=== PATIENT | female | born 1940 | race Caucasian/White ===

== ENCOUNTER → 2017-09-27 10:23 | Outpatient (CLI) | payer MEDICARE, SELFPAY ==
[2017-09-27 10:57] LABS: Add Manual Diff / Slide Review NO; Basophils Percent Auto 0.6 % (0-2); Eosinophils Percent Auto 2.5 % (2-4); Hematocrit 39.4 % (36-46); Hemoglobin 13.1 g/dL (12.0-16.0); Lymphocytes Percent Auto 17.2 % (25-40); Mean Corpuscular HGB Conc 33.2 % (30-36); Mean Corpuscular Hemoglobin 31.8 PG (26-34); Mean Corpuscular Volume 95.8 fL (80-100); Monocytes Percent Auto 11.9 % (3-14); Neutrophils Absolute Auto 3500 /uL (3000-5900); Neutrophils Percent Auto 67.8 % (50-75); Platelet Count 189 X10^3/uL (150-400); Red Blood Cell Count 4.11 X10^6/uL (4.0-5.2); Red Cell Distribution Width 14.2 % (11.6-14.8); White Blood Cell Count 5.2 X10^3/uL (4.5-11.0)
[2017-09-27 11:22] LABS: BUN Creatinine Ratio 22.5 (6-22); Blood Urea Nitrogen 18 mg/dL (7-17); Calcium 9.2 mg/dL (8.4-10.2); Carbon Dioxide 31 mmol/L (22-32); Chloride 98 mmol/L (98-107); Cholesterol 153 mg/dL (140-199); Estimated Glomerular Filt Rate > 60.0 mL/min (>60); Glucose 95 mg/dL (80-110); HDL Cholesterol 51 mg/dL (40-60); HEMOLYSIS < 15 (0-50); LDL Cholesterol Calculated 78 mg/dL (<100); Sodium 139 mmol/L (137-145); Triglycerides 122 mg/dL (35-150)
== END ==
PROVIDERS: Family Provider Internal Medicine; PCP Internal Medicine; Visit Provider Internal Medicine Cardiovascular Disease
DX: I48.1 Persistent atrial fibrillation (principal); E78.5 Hyperlipidemia, unspecified
CPT/HCPCS: 36415; 80048; 80061; 85025

== ENCOUNTER → 2017-10-23 11:20 | Outpatient (CLI) | payer MEDICARE, SELFPAY ==
[2017-10-23 12:33] LABS: Add Manual Diff / Slide Review NO; Basophils Percent Auto 0.7 % (0-2); Eosinophils Percent Auto 2.1 % (2-4); Hemoglobin 12.9 g/dL (12.0-16.0); Lymphocytes Percent Auto 17.4 % (25-40); Mean Corpuscular HGB Conc 33.2 % (30-36); Mean Corpuscular Hemoglobin 31.8 PG (26-34); Mean Corpuscular Volume 95.9 fL (80-100); Monocytes Percent Auto 15.4 % (3-14); Neutrophils Absolute Auto 4300 /uL (3000-5900); Neutrophils Percent Auto 64.4 % (50-75); Platelet Count 213 X10^3/uL (150-400); Red Blood Cell Count 4.06 X10^6/uL (4.0-5.2); Red Cell Distribution Width 14.1 % (11.6-14.8); White Blood Cell Count 6.6 X10^3/uL (4.5-11.0)
[2017-10-23 12:59] LABS: Alanine Aminotransferase 23 IU/L (9-52); Albumin 4.1 g/dL (3.5-5.0); Albumin Globulin Ratio 1.5 (1.0-2.8); Alkaline Phosphatase 73 U/L (38-126); Aspartate Aminotransferase 22 IU/L (14-36); BUN Creatinine Ratio 17.8 (6-22); Bilirubin Total 0.7 mg/dL (0.2-1.3); Blood Urea Nitrogen 16 mg/dL (7-17); C-Reactive Protein Quant 0.8 mg/dL (<1.0); Calcium 9.1 mg/dL (8.4-10.2); Carbon Dioxide 33 mmol/L (22-32); Chloride 96 mmol/L (98-107); Creatine Kinase 42 U/L (30-135); Estimated Glomerular Filt Rate > 60.0 mL/min (>60); Globulin 2.8 g/dL (1.7-4.1); Glucose 96 mg/dL (80-110); HEMOLYSIS < 15 (0-50); Potassium 4.3 mmol/L (3.4-5.1); Sodium 137 mmol/L (137-145); Total Protein 6.9 g/dL (6.3-8.2)
[2017-10-23 13:05] LABS: Erythrocyte Sedimentation Rate 25 MM/HR (0-20)
== END ==
PROVIDERS: Family Provider Internal Medicine; PCP Internal Medicine; Visit Provider Internal Medicine
DX: I48.2 Chronic atrial fibrillation (principal); E78.2 Mixed hyperlipidemia; M25.50 Pain in unspecified joint
CPT/HCPCS: 36415; 80053; 82550; 85025; 85651; 86140

== ENCOUNTER 2018-01-17 13:07 | Outpatient (CLI) | payer MEDICARE, SELFPAY ==
[2018-01-17] VITALS (9 sets, daily range): BP systolic 105–156; BP diastolic 60–100; PULSE 83–100; RESP 18–19; TEMP 37; O2SAT 94–99
--- NOTE | 2018-01-17 13:15 | DI.RAD.S_ITS ---
PROCEDURE: PAIN L INTERLAMINAR/CAUDAL INJ INDICATIONS: Spinal stenosis FINDINGS: Fluoroscopic spot filming was performed to verify placement of spinal needles at the right L5-S1 translaminar level(s), as labeled on the films. Appropriate location(s) of the needle tip(s) was confirmed by injection of iodinated contrast. IMPRESSION: Successful right paramedian needle tip localization for dorsal epidural injection at L5-S1. Dictated by: Srinivasa Ortiz M.D. on 01/17/2018 at 16:15 Approved by: Srinivasa Ortiz M.D. on 01/17/2018 at 16:17
[2018-01-17] MEDS: MIDAZOLAM 5 MG/5 ML VIAL IV (14:01)
[2018-01-17] MEDS: BUPIVACAINE 0.25% (PF) VIAL 2 ML INJ (14:06)
[2018-01-17] MEDS: IOPAMIDOL 15 ML VIAL 3 ML INJ (14:06)
[2018-01-17] MEDS: DEXAMETHASONE 10 MG/ML VIAL 20 MG INJ (14:07)
[2018-01-17] MEDS: methylPREDNISolone acetate 80 MG/ML VIAL INJ (14:07)
--- NOTE | 2018-01-17 14:13 | P.PCN_ITS ---
Procedures Date/Time Date of procedure: 01/17/18 Time of procedure: 14:12 General Procedure description: PROVIDER: Herrera Mcintosh DO Operative Note PREOP DIAGNOSIS 1. HNP WITH RADICULAR FEATURES, 2. MULTILEVEL CENTRAL STENOSIS, POST OP DIAGNOSIS 1. HNP WITH RADICULAR FEATURES, 2. MULTILEVEL CENTRAL STENOSIS, PROCEDURES 1. FLUORSCOPICALLY GUIDED CONTRAST CONTROLLED INTERLAMINAR EPIDURAL STEROID INJECTION - L5/S1 PHYSICIAN: Herrera Mcintosh DO INDICATIONS Ana is referred by Dr. Valerio for treatment of Bilateral Foraminal Stenosis L >R LE symptoms. FINDINGS Multilevel Central Spinal Stenosis with Nerve Root Compression DESCRIPTION OF PROCEDURE Fluoroscopically guided, contrast-controlled L5/S1 translaminar epidural steroid injection. Following denial of allergy and review of potential side effects and complications, including, but not necessarily limited to, infection, allergic reaction, local tissue breakdown, temporary as well as permanent nerve injury, paralysis, stroke and possible , the patient indicated that the patient understood and agreed to proceed. An informed consent document was signed by the patient, witnessed by a nurse, and placed in the patient's chart. Additionally, other treatment options including modalities, medications, and physical therapy were reviewed with the patient. After review of previous anaesthesic history and IV conscious sedation the patient was deemed safe to proceed with todays procedure with IV conscious sedation as ASA class II designation. Safety time-out was performed to confirm patient ID, procedure to be performed and site of procedure. IV sedation was accomplished with a combination of 2mg of Versed administered by the RN after DO order, titrated to patient comfort during the course of the procedure while the patient remained responsive to all verbal commands. In the prone position, following sterile prep and drape of the lumbar region, the L5/S1 translaminar space was identified fluoroscopically. The skin was anesthetized via a 25-gauge, 1.5-inch needle with 1% lidocaine solution. At this point, a 22-gauge short bevel spinal needle was atraumatically introduced and advanced under fluoroscopic guidance into the region of the L5/S1 translaminar space. Depth was confirmed on lateral view. Radiological data, including multiple fluoroscopic views of the lumbar spine, reveal a spinal needle at the L5/S1 translaminar space. Lateral views then show placement of the needle in the epidural space. Subsequent views show contrast material flowing superiorly and inferiorly in the epidural space. No vascular or intrathecal uptake is observed. At this point, using loss of resistance technique with saline and air, the epidural space was entered. This was confirmed following negative aspiration with injection of approximately 1.5 cc of Isovue 200, showing excellent epidural flow without vascular or intrathecal uptake. At this point, 1 cc of 1 % lidocaine solution combined with 3 cc or 20 mg of dexamethasone and 80mg Depo medrol was injected without incident. The patent tolerated the procedure without signs of symptoms of complications prior to transfer to the recovery area for further monitoring. The patient was then transferred to the recovery area where they were observed for an appropriate period of time after the injection. The patient reported a VAS score of 6 prior to the procedure and a post-procedure VAS of 0. Total Fluoroscopy Time: 11.8 seconds Total Conscious Sedation Time: 24min POST OP INSTRUCTIONS The patient was provided a Pain Log to continue to record their response to the target-specific procedure prior to follow-up visit with their referring physician. Additionally, specific post-injection care instructions and a contact number to our office were provided if concerns arise regarding possible complications associated with the procedure are suspected. Herrera Mcintosh DO Complications: none
--- NOTE | 2018-01-17 14:15 | PC.NURSE ---
transporting pt in stable condition to recovery room
--- NOTE | 2018-01-17 14:35 | PC.NURSE ---
pt came back via wheelchair alert with Keila LARSEN post procedure, able to transfer from W/C to chair without problems. vss, pt able to eat cookies and drink coffee.
== END 2018-01-17 14:48 ==
PROVIDERS: PCP Internal Medicine; Visit Provider Physical Medicine & Rehabilitation
DX: M51.17 Intervertebral disc disorders with radiculopathy, lumbosacral region (principal); M48.061 Spinal stenosis, lumbar region without neurogenic claudication; Z98.1 Arthrodesis status
CPT/HCPCS: 62323; 99152; J1040; J1100; J2250

== ENCOUNTER → 2018-03-24 11:38 | Outpatient (CLI) | payer MEDICARE, SELFPAY ==
[2018-03-24 12:12] LABS: Add Manual Diff / Slide Review NO; Basophils Percent Auto 0.5 % (0-2); Eosinophils Percent Auto 1.7 % (2-4); Hematocrit 41.8 % (36-46); Hemoglobin 14.4 g/dL (12.0-16.0); Lymphocytes Percent Auto 13.7 % (25-40); Mean Corpuscular HGB Conc 34.5 % (30-36); Mean Corpuscular Hemoglobin 33.2 PG (26-34); Mean Corpuscular Volume 96.2 fL (80-100); Monocytes Percent Auto 13.8 % (3-14); Neutrophils Absolute Auto 4600 /uL (1500-7000); Neutrophils Percent Auto 70.3 % (50-75); Platelet Count 269 X10^3/uL (150-400); Red Blood Cell Count 4.34 X10^6/uL (4.0-5.2); Red Cell Distribution Width 12.7 % (11.6-14.8); White Blood Cell Count 6.5 X10^3/uL (4.5-11.0)
[2018-03-24 12:28] LABS: BUN Creatinine Ratio 21.1 (6-22); Blood Urea Nitrogen 19 mg/dL (7-17); Calcium 9.7 mg/dL (8.4-10.2); Carbon Dioxide 30 mmol/L (22-32); Chloride 98 mmol/L (98-107); Estimated Glomerular Filt Rate > 60.0 mL/min (>60); Glucose 109 mg/dL (80-110); HEMOLYSIS < 15 (0-50); Potassium 4.1 mmol/L (3.4-5.1); Sodium 142 mmol/L (137-145)
== END ==
PROVIDERS: PCP Internal Medicine; Visit Provider Internal Medicine Cardiovascular Disease
DX: I10 Essential (primary) hypertension (principal)
CPT/HCPCS: 36415; 80048; 85025

== ENCOUNTER 2018-05-30 13:05 | Outpatient (CLI) | payer MEDICARE, SELFPAY ==
[2018-05-30] VITALS (10 sets, daily range): BP systolic 96–139; BP diastolic 61–101; PULSE 63–90; RESP 16–18; TEMP 36.6; O2SAT 92–100
--- NOTE | 2018-05-30 13:06 | DI.RAD.S_ITS ---
PROCEDURE: PAIN L/SI FACET INJ/BLK 1STL INDICATIONS: SPINAL STENOSIS FINDINGS: Fluoroscopic spot filming was performed to verify placement of spinal needles at the bilateral L5-S1 region level(s), as labeled on the films. Appropriate location(s) of the needle tip(s) was confirmed by injection of iodinated contrast. IMPRESSION: Successful needle tip localization at the bilateral L5-S1 region for medial branch block procedures bilaterally. Dictated by: Srinivasa rOtiz M.D. on 05/30/2018 at 16:54 Approved by: Srinivasa Ortiz M.D. on 05/30/2018 at 17:21
[2018-05-30] MEDS: MIDAZOLAM 5 MG/5 ML VIAL IV (13:58)
[2018-05-30] MEDS: LIDOCAINE 1% 20 ML INJ 10 ML INJ (14:05)
[2018-05-30] MEDS: BUPIVACAINE 0.5% (PF) VIAL 2 ML INJ (14:05)
[2018-05-30] MEDS: IOPAMIDOL 15 ML VIAL 3 ML INJ (14:05)
[2018-05-30] MEDS: BETAMETHASONE 30 MG/5 ML MDV 12 MG INJ (14:05)
--- NOTE | 2018-05-30 14:10 | PC.NURSE ---
assisting pt off procedure table and transporting to post proc area in stable condition
--- NOTE | 2018-05-30 14:17 | P.PCN_ITS ---
Procedures Date/Time Date of procedure: 05/30/18 Time of procedure: 14:16 General Procedure description: POST OP DIAGNOSIS 1. FACET ARTHROPATHY PROCEDURES 1. BILATERAL- L5 and S1 MB BLOCKS PHYSICIAN: DO QUETA Fonseca Ana is referred by Dr. Valerio for treatment of Bilateral Axial LBP. DESCRIPTION OF PROCEDURE Fluoroscopically guided, contrast-controlled bilateral L5 and S1 medial branch blocks with 0.5cc of 0.5% Marcaine. Following denial of allergy and review of potential side effects and complications, including, but not necessarily limited to, infection, allergic reaction, local tissue breakdown, nerve injury, paralysis, stroke and possible , the patient indicated that the patient understood and agreed to proceed. An informed consent document was signed by the patient, witnessed by a nurse, an d placed in the patient's chart. After review of previous anaesthesic history and IV conscious sedation the patient was deemed safe to proceed with todays procedure with IV conscious sedation as ASA class II designation. Safety time-out was performed to confirm patient ID, procedure to be performed and site of procedure. IV sedation was accomplished with a combination of 2mg of Versed and 50mcg of Fentanyl was administered by the RN after DO order, titrated to patient comfort during the course of the procedure while the patient remained responsive to all verbal commands In the prone position, following sterile prep and drape of the lumbar region, the right L5 and S1 anatomical location of the medial branch of the dorsal ramus was identified fluoroscopically. Subsequently an anesthetic skin wheal using 1% lidocaine solution was initiated at each of the anatomical spots. Subsequently then a 22-gauge 3.5-inch spinal needle was atraumatically introduced and advanced under fluoroscopic guidance at each of the corresponding sites at the right L5 and S1 MB. After negative aspiration, 0.2 cc of Isovue 200 was injected, confirming placement without vascular or intrathecal uptake. Sub sequently then 0.5 cc of 0.5% Marcaine solution was injected at each of the corresponding sites at the right L5 and S1 medial branch locations. The identical procedure was replicated on the left. The patient tolerated the procedure well without signs or symptoms of complications. The patient tolerated the procedure well without signs or symptoms of complications prior to transfer to the recovery area continued monitoring without incident. Post-procedure, the patient was monitored initiating provocative activities to measure the amount of relief from block of the facetogenic pain. The patient reported a VAS of 7 prior to the procedure and a post-procedure VAS of 1. It has been a pleasure to assist in the diagnostic and therapeutic care of your patient. Total Fluoroscopy Time: 24.8 seconds Total Conscious Sedation Time: 24min POST OP INSTRUCTIONS The patient was provided with a Pain Log to complete over the next several hours and subsequent days prior to the patient's follow up with the ordering physician. If the patient has machine deicer element winder relief to the solution applied, then they may be a candidate for medial branch rhizotomy. The patient is aware, was provided, once again, with a Pain Log and will follow up with the referring physician for review and clinical correlation Herrera Mcintosh DO Complications: none
--- NOTE | 2018-05-30 14:43 | PC.NURSE ---
pt returned from procedure at 1418 via wheelchair. Able to move from w/c to chair with standby assist. Pt awake and alert. REsumed monitoring from Kala LARSEN.
--- NOTE | 2018-05-30 14:49 | PC.NURSE ---
pt arrived for appt with low oxygen levels. denies shortness of breath, reports her doctor is aware of this and no one can find out why her oxygen is low. She is living in the low 90's. Tolerated procedure well.
== END 2018-05-30 15:02 ==
LOC: RAD 13:06
PROVIDERS: PCP Internal Medicine; Visit Provider Physical Medicine & Rehabilitation
DX: M47.817 Spondylosis without myelopathy or radiculopathy, lumbosacral region (principal); M54.5 Low back pain; M48.061 Spinal stenosis, lumbar region without neurogenic claudication; Z98.1 Arthrodesis status
CPT/HCPCS: 64493; 99152; J0702; J2250; J3010

== ENCOUNTER 2018-07-31 10:22 | Outpatient (CLI) | payer MEDICARE, SELFPAY ==
[2018-07-31] VITALS (14 sets, daily range): BP systolic 97–141; BP diastolic 50–98; PULSE 70–86; RESP 16–18; TEMP 36.6; O2SAT 91–100
--- NOTE | 2018-07-31 10:25 | DI.RAD.S_ITS ---
PROCEDURE: PAIN L/S MED/LAT N RFA BILAT INDICATIONS: SPONDYLOSIS FINDINGS: Fluoroscopic spot filming was performed to verify placement of spinal needles at the L5 and S1 level(s), as labeled on the films. Appropriate location(s) of the needle tip(s) was confirmed by injection of iodinated contrast. IMPRESSION: Fluoroscopy for pain management. Dictated by: Arturo Villarreal M.D. on 07/31/2018 at 13:28 Approved by: Arturo Villarreal M.D. on 07/31/2018 at 13:28
[2018-07-31] MEDS: fentaNYL 100 MCG/2 ML INJ 50 MCG IV (11:21)
[2018-07-31] MEDS: BUPIVACAINE 0.5% (PF) VIAL 2 ML INJ (11:41)
[2018-07-31] MEDS: MIDAZOLAM 5 MG/5 ML VIAL IV (11:43)
[2018-07-31] MEDS: BETAMETHASONE 30 MG/5 ML MDV 12 MG INJ (11:43)
[2018-07-31] MEDS: LIDOCAINE 1% 20 ML INJ 10 ML INJ (11:43)
--- NOTE | 2018-07-31 12:01 | PC.NURSE ---
ASSISTING PT OFF TABLE AND TRANSPORTING TO POST PROC AREA IN STABLE CONDITION
--- NOTE | 2018-07-31 12:06 | P.PCN_ITS ---
Procedures Date/Time Date of procedure: 07/31/18 Time of procedure: 12:04 General Procedure description: Procedure Note PREOP DIAGNOSIS 1. RECALCITRANT FACET ARTHROPATHY, POST OP DIAGNOSIS 1. RECALCITRANT FACET ARTHROPATHY, PROCEDURES 1. BILATERAL L5 MEDIAL BRANCH RADIOFREQUENCY NEUROTOMY AND BILATERAL S1 DORSAL RAMUS BRANCH RADIOFREQUENCY NEUROTOMY. PHYSICIAN: Herrera Mcintosh, DO INDICATIONS Ana is referred by Dr. Valerio for treatment of facet arthropathy s/p fusion. DESCRIPTION OF PROCEDURE Bilateral L5 medial branch radiofrequency neurotomy and bilateral S1 dorsal ramus branch radiofrequency neurotomy under fluoroscopy with conscious sedation. The patient is well known to this clinic having undergone previous facet injections with good but temporary relief. The patient has experienced appropriate, concordant relief with previous facet and median branch blocks but the patient's pain has been recalcitrant to further conservative measures. Therefore, based upon the patient's relief and persistent symptoms, the patient is considered an appropriate candidate for facet rhizotomy. All of the patient's questions regarding the risks versus benefits of the procedure, including, but not limited to, bleeding, infection, temporary as well as lasting nerve injury, paralysis, stroke, and , as well treatment alternatives were answered to satisfaction. After obtaining informed consent, denial of pertinent drug allergies, as well as being made aware of the potential risks of bleeding, infection, spinal cord trauma, paralysis, temporary and permanent nerve damage, seizure, stroke, and possible , the patient was brought to the fluoroscopy suite and positioned prone on the fluoroscopy table. The lumbar region was prepped with Betadine and covered with a fenestrated drape in the usual sterile fashion. Appropriate monitors applied including pulse oximeter, pulse, and blood pressure for regular monitoring throughout the procedure. After review of previous anaesthesic history and IV conscious sedation the patient was deemed safe to proceed with todays procedure with IV conscious sedation as ASA class II designation. Safety time-out was performed to confirm patient ID, procedure to be performed and site of procedure. IV sedation was accomplished with a combination of 2mg of Versed and 50mcg of Fentanyl was administered by the RN after DO order, titrated to patient comfort during the course of the procedure while the patient remained responsive to all verbal commands. After local infiltration using 1% lidocaine, under fluoroscopic guidance, a 10- cm RF insulated needle with a 10-mm active tip was positioned parallel to the junction of the bilateral sacral ala and the superior articulating process where the S1 dorsal ramus resides. Needle placement was confirmed with motor stimul ation of .5v on the right; motor stimulation of .6v on the left, which produced local stimulation without radicular component. The stimulation was then increased to 1.5v with, once again, only local multifidus stimulation without radicular component. This was then followed by two discreet lesions performed at 80 degrees Celsius for 90 seconds each. The needle was then removed and the identical procedure was performed along the length of the bilateral L5 medial branch with motor stimulation at .7v on the right; motor stimulation at .6v on the left. The patient tolerated the procedure well without signs or symptoms of complications prior to transfer to the recovery area continued monitoring without incident. The patient was then transferred to the recovery area where they were observed for an appropriate period of time after the injection. The patient reported a VAS score of 9 prior to the procedure and a post- procedure VAS of 0. Total Fluoroscopy Time: 32.1 seconds Total Conscious Sedation Time: 46min POST OP INSTRUCTIONS The patient was provided a Pain Log to continue to record the patient's response to the target-specific procedure prior to the patient's follow-up visit with the referring physician. Additionally, specific post-injection care instructions and a contact number to our office were provided if concerns arise regarding possible complications associated with the procedure are suspected. Herrera Mcintosh DO Complications: none
--- NOTE | 2018-07-31 12:21 | PC.NURSE ---
Pt returned at 1210 post procedure awake and alert, able to get from W/C to Chair with standby assist. Resumed monitoring from Keila LARSEN.
--- NOTE | 2018-08-01 15:15 | PC.NURSE ---
FOLLOW UP CALL MADE, PT STATES I THINK I'M ABOUT 50% BETTER. PT DENIES QUESTIONS/CONCERNS. ENCOURAGED HER TO CONTINUE WITH HER PAIN LOG AND TO BRING IT TO FOLLOW UP.
== END 2018-07-31 12:46 ==
LOC: RAD 10:24
PROVIDERS: PCP Internal Medicine; Visit Provider Physical Medicine & Rehabilitation
DX: M47.817 Spondylosis without myelopathy or radiculopathy, lumbosacral region (principal); Z98.1 Arthrodesis status
CPT/HCPCS: 64635; 64636; 99152; 99153; J0702; J2250; J3010

== ENCOUNTER 2018-09-27 10:16 | Outpatient (CLI) | payer MEDICARE, SELFPAY ==
[2018-09-27] VITALS (8 sets, daily range): BP systolic 94–129; BP diastolic 61–84; PULSE 72–91; RESP 16; TEMP 36.8; O2SAT 88–97
--- NOTE | 2018-09-27 10:18 | DI.RAD.S_ITS ---
PROCEDURE: PAIN L/S TRANSFORAMINAL INJECT INDICATIONS: SPINAL STENOSIS FINDINGS: Fluoroscopic spot filming was performed to verify placement of spinal needles at the L3-L4 level(s), as labeled on the films. Appropriate location(s) of the needle tip(s) was confirmed by injection of iodinated contrast. Dictated by: Sorin Marlow M.D. on 09/28/2018 at 8:44 Approved by: Sorin Marlow M.D. on 09/28/2018 at 8:48
--- NOTE | 2018-09-27 11:34 | P.PCN_ITS ---
Procedures Date/Time Date of procedure: 09/27/18 Time of procedure: 11:33 General Procedure description: PROVIDER: Herrera Mcintosh DO Operative Note PREOP DIAGNOSIS 1. FORAMINAL STENOSIS WITH LE SYMPTOMS, POST OP DIAGNOSIS 1. FORAMINAL STENOSIS WITH LE SYMPTOMS, PROCEDURES 1. FLUOROSCOPICALLY GUIDED CONTRAST CONTROLLED TRANSFORAMINAL EPIDURAL STEROID INJECTION - LEFT L3/4 TFESI SURGEON: Herrera Mcintosh, INDICATIONS Ana is referred by Dr. Valerio for treatment of Foraminal Stenosis with left LE Symptoms FINDINGS Foraminal Nerve Root Compression secondary to disc disease and facet hypertrophy DESCRIPTION OF PROCEDURE Following review of allergy and review of potential side effects and complications, including, but not necessarily limited to, infection, allergic reaction, local tissue breakdown, stroke, temporary or permanent nerve injury, paralysis, and possible , the patient indicated that the patient understood and agreed to proceed. An informed consent document was signed by the patient, witnessed by a nurse, and placed in the patient's chart. Additionally, other treatment options including medications, modalities, and physical therapy were reviewed with the patient. After review of previous anaesthesic history and IV conscious sedation the patient was deemed safe to proceed with todays procedure with IV conscious sedation as ASA class II designation. Safety time-out was performed to confirm p atient ID, procedure to be performed and site of procedure. IV sedation was accomplished with a combination of 1mg of Versed and 50mcg of Fentanyl was administered by the RN after DO order, titrated to patient comfort during the course of the procedure while the patient remained responsive to all verbal commands In the prone position following sterile prep and drape of the lumbar region, the left L3/4 posterior neuroforamen was identified fluoroscopically. The skin was anesthetized via a 25-gauge 1.5-inch needle with 1% lidocaine solution. At this point, a 25-gauge 3.5-inch spinal needle was atraumatically introduced and advanced under fluoroscopic guidance through the posterior left L3/4 neuroforamen to approximately the anterior aspect of the canal. Depth was confirmed on lateral view. Following negative aspiration, injection of approximately 1.5 cc of Isovue 200 under live fluoroscopy in the AP view confirmed excellent flow along the nerve root, into the epidural space without vascular or intrathecal uptake observed Radiological data, including multiple fluoroscopic views of the lumbosacral spine, reveal a spinal needle at the left L3/4 posterior neuroforamen. Subsequent views show flow of contrast material flowing superiorly and inferiorly along the nerve root confirming epidural flow. Subsequently, a test dose of 1.5 cc of 1% lidocaine solution was administered and patient was observed for two minutes for signs or symptoms of complications, including abdominal pain, shortness of breath, bilateral upper or lower extremity weakness, nausea and vomiting, prior to steroid injection. At this point, a total of 3cc or 18mg of betamethasone was injected without incident. The patient tolerated the procedure well without signs or symptoms of complications prior to transfer to the recovery area continued monitoring without incident. The patient was then transferred to the recovery area where they were observed for an appropriate time after the injection. The patient reported a VAS score of 7 prior to the procedure and a post-procedure VAS of 0. Total Fluoroscopy Time: 24.2 seconds Total Conscious Sedation Time: 24min POST OP INSTRUCTIONS The patient was provided a Pain Log to continue to record their response to the target-specific procedure prior to follow-up visit with their referring physician. Additionally, specific post-injection care instructions and a contact number to our office were provided if concerns arise regarding possible complications associated with the procedure are suspected. Herrera Mcintosh, Complications: none
[2018-09-27] MEDS: fentaNYL 100 MCG/2 ML INJ 50 MCG IV (11:40)
[2018-09-27] MEDS: MIDAZOLAM 5 MG/5 ML VIAL IV (11:40)
--- NOTE | 2018-09-27 11:48 | PC.NURSE ---
pt tolerated procedure well. Able to get off the table with standby assist. Transferred pt via wheelchair awake and alert to pre procedure room for continued monitoring with Keila LARSEN.
[2018-09-27] MEDS: BETAMETHASONE 30 MG/5 ML MDV 12 MG INJ (11:52)
[2018-09-27] MEDS: BUPIVACAINE 0.25% (PF) VIAL 2 ML INJ (11:52)
[2018-09-27] MEDS: IOPAMIDOL 15 ML VIAL 3 ML INJ (11:53)
--- NOTE | 2018-09-27 12:02 | PC.NURSE ---
88% 02 WITH GOOD PLETH NOTED. PT'S O2 HISTORICALLY RUNS BETWEEN 85-95%. ALL OTHER VSS. PT A&0X4 AND DENIES SOB, DIZZINESS, CONFUSION, NUMBNESS/TINGLING OF FINGERS/TOES.
== END 2018-09-27 12:52 | disposition home or self-care (01) ==
LOC: RAD 10:17
PROVIDERS: PCP Internal Medicine; Visit Provider Physical Medicine & Rehabilitation
DX: M48.061 Spinal stenosis, lumbar region without neurogenic claudication (principal); M51.16 Intervertebral disc disorders with radiculopathy, lumbar region; M47.27 Other spondylosis with radiculopathy, lumbosacral region; Z98.1 Arthrodesis status
CPT/HCPCS: 64483; 99152; J0702; J2250; J3010

== ENCOUNTER → 2019-01-17 09:10 | Outpatient (CLI) | payer MEDICARE, SELFPAY ==
[2019-01-17 09:47] LABS: Add Manual Diff / Slide Review NO; Basophils Absolute Auto 0 /uL (0-100); Basophils Percent Auto 0.6 % (0-2); Eosinophils Absolute Auto 100 /uL (0-450); Eosinophils Percent Auto 3.1 % (2-4); Hematocrit 40.2 % (36-46); Hemoglobin 13.6 g/dL (12.0-16.0); Lymphocytes Absolute Auto 1300 /uL (1100-4500); Lymphocytes Percent Auto 29.5 % (25-40); Mean Corpuscular HGB Conc 33.8 % (30-36); Mean Corpuscular Hemoglobin 32.5 PG (26-34); Mean Corpuscular Volume 96.2 fL (80-100); Monocytes Absolute Auto 600 /uL (0-900); Neutrophils Absolute Auto 2300 /uL (1500-7000); Neutrophils Percent Auto 52.8 % (50-75); Platelet Count 194 X10^3/uL (150-400); Red Blood Cell Count 4.18 X10^6/uL (4.0-5.2); Red Cell Distribution Width 14.5 % (11.6-14.8); White Blood Cell Count 4.4 X10^3/uL (4.5-11.0)
[2019-01-17 10:02] LABS: Alanine Aminotransferase 15 IU/L (9-52); Albumin 4.1 g/dL (3.5-5.0); Albumin Globulin Ratio 1.5 (1.0-2.8); Alkaline Phosphatase 83 U/L (38-126); Aspartate Aminotransferase 22 IU/L (14-36); BUN Creatinine Ratio 18.9 (6-22); Bilirubin Total 0.7 mg/dL (0.2-1.3); Blood Urea Nitrogen 17 mg/dL (7-17); Calcium 9.5 mg/dL (8.4-10.2); Carbon Dioxide 34 mmol/L (22-32); Chloride 99 mmol/L (98-107); Cholesterol 139 mg/dL (140-199); Estimated Glomerular Filt Rate > 60.0 mL/min (>60); Globulin 2.8 g/dL (1.7-4.1); Glucose 89 mg/dL (80-110); HDL Cholesterol 44 mg/dL (40-60); HEMOLYSIS < 15 (0-50); LDL Cholesterol Calculated 69 mg/dL (<100); Sodium 138 mmol/L (137-145); Total Protein 6.9 g/dL (6.3-8.2); Triglycerides 128 mg/dL (35-150)
== END ==
PROVIDERS: PCP Internal Medicine; Visit Provider Internal Medicine
DX: E78.2 Mixed hyperlipidemia (principal); I10 Essential (primary) hypertension; I48.20 Chronic atrial fibrillation, unspecified
CPT/HCPCS: 36415; 80053; 80061; 85025

== ENCOUNTER 2019-04-09 13:00 | Outpatient (CLI) | payer MEDICARE, SELFPAY ==
[2019-04-09] VITALS (9 sets, daily range): BP systolic 89–138; BP diastolic 51–90; PULSE 74–84; RESP 16–18; TEMP 36.7; O2SAT 92–100
--- NOTE | 2019-04-09 13:02 | DI.RAD.S_ITS ---
PROCEDURE: PAIN L/S TRANSFORAMINAL INJECT INDICATIONS: SPINAL STENOSIS FINDINGS: Fluoroscopic spot filming was performed to verify placement of spinal needles at the L3-4 level(s), as labeled on the films. Appropriate location(s) of the needle tip(s) was confirmed by injection of iodinated contrast. Posterior fusion is present at L4-5. IMPRESSION: L3 for needle placement as above. Dictated by: Bernadette Brink M.D. on 04/09/2019 at 17:06 Approved by: Bernadette Brink M.D. on 04/09/2019 at 17:06
--- NOTE | 2019-04-09 13:39 | PC.NURSE ---
DR OROZCO NOTIFIED OF LOW BP AT 89/51 AND O2 SAT AT 93%. PT TOOK 10MG VALIUM AT APPROX 1230. NO NEW ORDERS. DR OROZCO HAS STATED IT IS SAFE TO CONTINUE WITH PROCEDURE.
[2019-04-09] MEDS: fentaNYL 100 MCG/2 ML INJ 50 MCG IV (14:20)
--- NOTE | 2019-04-09 14:34 | PC.NURSE ---
Post procedure note: Patient medicated per providers orders. VSS, O2 Sat WNL on 2 L/OBSTETRICS NURSE. Able to sit up and transfer to w/c with stand by assist. Handoff report given to Flavio Mcelod RN. Pain level 0/10. Transported via w/c for post op monitoring.
--- NOTE | 2019-04-09 14:38 | PM.PROC.1 ---
Procedures Date/Time Date of procedure: 04/09/19 Time of procedure: 14:38 General Procedure description: PROVIDER: Herrera Mcintosh DO Operative Note PREOP DIAGNOSIS 1. FORAMINAL STENOSIS WITH LE SYMPTOMS, POST OP DIAGNOSIS 1. FORAMINAL STENOSIS WITH LE SYMPTOMS, PROCEDURES 1. FLUOROSCOPICALLY GUIDED CONTRAST CONTROLLED TRANSFORAMINAL EPIDURAL STEROID INJECTION - LEFT L3/4 TFESI SURGEON: Herrera Mcintosh, INDICATIONS Ana is referred by Dr. Valerio for treatment of Foraminal Stenosis with left LE Symptoms FINDINGS Foraminal Nerve Root Compression secondary to disc disease and facet hypertrophy DESCRIPTION OF PROCEDURE Following review of allergy and review of potential side effects and complications, including, but not necessarily limited to, infection, allergic reaction, local tissue breakdown, stroke, temporary or permanent nerve injury, paralysis, and possible , the patient indicated that the patient understood and agreed to proceed. An informed consent document was signed by the patient, witnessed by a nurse, and placed in the patient's chart. Additionally, other treatment options including medications, modalities, and physical therapy were reviewed with the patient. After review of previous anaesthesic history and IV conscious sedation the patient was deemed safe to proceed with todays procedure with IV conscious sedation as ASA class II designation. Safety time-out was performed to confirm patient ID, procedure to be performed and site of procedure. IV sedation was accomplished with 50mcg of Fentanyl was administered by the RN after DO order, titrated to patient comfort during the course of the procedure while the patient remained responsive to all verbal commands In the prone position following sterile prep and drape of the lumbar region, the left L3/4 posterior neuroforamen was identified fluoroscopically. The skin was anesthetized via a 25-gauge 1.5-inch needle with 1% lidocaine solution. At this point, a 25-gauge 3.5-inch spinal needle was atraumatically introduced and advanced under fluoroscopic guidance through the posterior left L3/4 neuroforamen to approximately the anterior aspect of the canal. Depth was confirmed on lateral view. Following negative aspiration, injection of approximately 1cc of Isovue 200 under live fluoroscopy in the AP view confirmed excellent flow along the nerve root, into the epidural space without vascular or intrathecal uptake observed Radiological data, including multiple fluoroscopic views of the lumbosacral spine, reveal a spinal needle at the left L3/4 posterior neuroforamen. Subsequent views show flow of contrast material flowing superiorly and inferiorly along the nerve root confirming epidural flow. Subsequently, a test dose of 1.5cc of 1% lidocaine solution was administered and patient was observed for two minutes for signs or symptoms of complications, including abdominal pain, shortness of breath, bilateral upper or lower extremity weakness, nausea and vomiting, prior to steroid injection. At this point, a total of 3cc or 20mg of dexamethasone and 6mg betamethasone was injected without incident. The patient tolerated the procedure well without signs or symptoms of complications prior to transfer to the recovery area continued monitoring without incident. The patient was then transferred to the recovery area where they were observed for an appropriate time after the injection. The patient reported a VAS score of 7 prior to the procedure and a post-procedure VAS of 0. Total Fluoroscopy Time: 24.2 seconds Total Conscious Sedation Time: 24min POST OP INSTRUCTIONS The patient was provided a Pain Log to continue to record their response to the target-specific procedure prior to follow-up visit with their referring physician. Additionally, specific post-injection care instructions and a contact number to our office were provided if concerns arise regarding possible complications associated with the procedure are suspected. Herrera Mcintosh DO Complications: none
[2019-04-09] MEDS: IOPAMIDOL 15 ML VIAL 3 ML INJ (14:48)
[2019-04-09] MEDS: BUPIVACAINE 0.25% (PF) VIAL 2 ML INJ (14:48)
[2019-04-09] MEDS: BETAMETHASONE 30 MG/5 ML MDV 12 MG INJ (14:49)
[2019-04-09] MEDS: DEXAMETHASONE 10 MG/ML VIAL 20 MG INJ (14:52)
== END 2019-04-09 15:03 | disposition home or self-care (01) ==
LOC: RAD 13:02
PROVIDERS: Family Provider Internal Medicine; PCP Internal Medicine; Visit Provider Physical Medicine & Rehabilitation
DX: M48.061 Spinal stenosis, lumbar region without neurogenic claudication (principal); M51.16 Intervertebral disc disorders with radiculopathy, lumbar region
CPT/HCPCS: 64483; 99152; J0702; J1100; J3010

== ENCOUNTER → 2019-05-30 11:06 | Outpatient (CLI) | payer MEDICARE, SELFPAY ==
--- NOTE | 2019-05-30 11:09 | DI.RAD.S_ITS ---
PROCEDURE: XR KNEE LT 3V INDICATIONS: knee pain after fall TECHNIQUE: 3 views of the knee were acquired. COMPARISON: [facility], XR KNEE OUTSIDE FILMS, 10/03/2005, 14:28. [place], [place], BONE SCAN WHOLE BODY, 06/02/2009, 10:42. [facility], , XR KNEE OUTSIDE FILMS, 01/29/2007, 14:20. FINDINGS: Bones: No fractures or dislocations. No suspicious bony lesions. Severe tricompartmental knee joint degeneration. There is chondrocalcinosis. There is a prominent osteophyte or small osteochondroma in the anterior aspect of the distal femoral metaphysis. Soft tissues: Small joint effusion. No suspicious soft tissue calcifications. IMPRESSION: 1. No fracture or dislocation. 2. Severe osteoarthritis. 3. Chondrocalcinosis. Differential diagnoses include CPPD and hyperparathyroidism. Dictated by: Arturo Villarreal M.D. on 05/30/2019 at 12:39 Approved by: Arturo Villarreal M.D. on 05/30/2019 at 12:43
== END ==
PROVIDERS: Family Provider Internal Medicine; PCP Internal Medicine; Referring Provider Registered Nurse; Visit Provider Registered Nurse
DX: M25.562 Pain in left knee (principal); M17.12 Unilateral primary osteoarthritis, left knee; M11.262 Other chondrocalcinosis, left knee
CPT/HCPCS: 73562

== ENCOUNTER → 2019-11-09 10:13 | Outpatient (CLI) | payer MEDICARE, SELFPAY ==
[2019-11-11 21:03] LABS: COVID19 Sendout Not Detected (Not Detect)
== END ==
PROVIDERS: Family Provider Internal Medicine; PCP Internal Medicine; Visit Provider Physician Assistant
DX: Z11.59 Encounter for screening for other viral diseases (principal)
CPT/HCPCS: 87635

== ENCOUNTER 2019-11-12 12:19 | Outpatient (CLI) | payer MEDICARE, SELFPAY ==
[2019-11-12] VITALS (9 sets, daily range): BP systolic 103–194; BP diastolic 55–113; PULSE 74–82; RESP 16–25; O2SAT 92–95
--- NOTE | 2019-11-12 12:20 | DI.RAD.S_ITS ---
PROCEDURE: PAIN L/S TRANSFORAMINAL INJECT INDICATIONS: SPONDYLOSIS COMPARISON: [facility], , PAIN L/S TRANSFORAMINAL INJECT, 04/09/2019, 14:23. FINDINGS: Fluoroscopic spot filming was performed to verify placement of spinal needles at the L3-L4 level(s), as labeled on the films. Appropriate location(s) of the needle tip(s) was confirmed by injection of iodinated contrast. Dictated by: Sorin Marlow M.D. on 11/12/2019 at 15:10 Approved by: Sorin Marlow M.D. on 11/12/2019 at 15:11
[2019-11-12] MEDS: MIDAZOLAM 5 MG/5 ML VIAL IV (13:01)
[2019-11-12] MEDS: DEXAMETHASONE 10 MG/ML VIAL 20 MG INJ (13:05)
[2019-11-12] MEDS: IOPAMIDOL 15 ML VIAL 3 ML INJ (13:05)
[2019-11-12] MEDS: BUPIVACAINE 0.25% (PF) VIAL 2 ML INJ (13:05)
[2019-11-12] MEDS: BETAMETHASONE 30 MG/5 ML MDV 6 MG INJ (13:05)
--- NOTE | 2019-11-12 13:21 | P.PCN_ITS ---
Date/Time/Diagnoses Date of procedure: 11/12/19 Time of procedure: 13:21 Pre-procedure diagnosis: 1. FORAMINAL STENOSIS WITH LE SYMPTOMS Post-procedure diagnosis: same Procedure Notes Procedure: 1. FLUOROSCOPICALLY GUIDED CONTRAST CONTROLLED TRANSFORAMINAL EPIDURAL STEROID INJECTION - RIGHT L3/4 TFESI Indications: Ana is referred by Dr. Valerio for treatment of Foraminal Stenosis with right LE Symptoms Physician: Herrera Mcintosh Total Fluoroscopy time (seconds): 17 Total sedation minutes: 11 Complications: none Procedure in detail & Post-procedure care: FINDINGS Foraminal Nerve Root Compression secondary to disc disease and facet hypertrophy DESCRIPTION OF PROCEDURE Following review of allergy and review of potential side effects and complications, including, but not necessarily limited to, infection, allergic reaction, local tissue breakdown, stroke, temporary or permanent nerve injury, paralysis, and possible , the patient indicated that the patient understood and agreed to proceed. An informed consent document was signed by the patient, witnessed by a nurse, and placed in the patient's chart. Additionally, other treatment options including medications, modalities, and physical therapy were reviewed with the patient. After review of previous anaesthesic history and IV conscious sedation the patient was deemed safe to proceed with today?s procedure with IV conscious sedation as ASA class II designation. Safety time-out was performed to confirm patient ID, procedure to be performed and site of procedure. IV sedation was accomplished with a combination of 2mg of Versed was administered by the RN after DO order, titrated to patient comfort during the course of the procedure while the patient remained responsive to all verbal commands In the prone position following sterile prep and drape of the lumbar region, the right L3/4 posterior neuroforamen was identified fluoroscopically. The skin was anesthetized via a 25-gauge 1.5-inch needle with 1% lidocaine solution. At this point, a 25-gauge 3.5-inch spinal needle was atraumatically introduced and advanced under fluoroscopic guidance through the posterior right L3/4 neuroforamen to approximately the anterior aspect of the canal. Depth was confirmed on lateral view. Following negative aspiration, injection of approximately 1.5 cc of Isovue 200 under live fluoroscopy in the AP view con firmed excellent flow along the nerve root, into the epidural space without vascular or intrathecal uptake observed Radiological data, including multiple fluoroscopic views of the lumbosacral spine, reveal a spinal needle at the right L3/4 posterior neuroforamen. Subsequent views show flow of contrast material flowing superiorly and inferiorly along the nerve root confirming epidural flow. Subsequently, a test dose of 1.5 cc of 1% lidocaine solution was administered and patient was observed for two minutes for signs or symptoms of complications, including abdominal pain, shortness of breath, bilateral upper or lower extremity weakness, nausea and vomiting, prior to steroid injection. At this point, a total of 3cc or 20mg of dexamethasone and 6mg of betamethasone was injected without incident. The patient tolerated the procedure well without signs or symptoms of complications prior to transfer to the recovery area continued monitoring without incident. The patient was then transferred to the recovery area where they were observed for an appropriate time after the injection. The patient reported a VAS score of 7 prior to the procedure and a post-procedure VAS of 0. POST OP INSTRUCTIONS The patient was provided a Pain Log to continue to record their response to the target-specific procedure prior to follow-up visit with their referring ph ysician. Additionally, specific post-injection care instructions and a contact number to our office were provided if concerns arise regarding possible complications associated with the procedure are suspected.
--- NOTE | 2019-11-12 13:30 | PC.NURSE ---
Pt tolerated procedure well, 2PA transfer from table to . Returned to pre procedure room for further observation.
--- NOTE | 2019-11-12 13:41 | PC.NURSE ---
Pt tolerated procedure well. No pain at this time. Report from [facility] Abe[facility]. VSS. Tolerating coffee and cookies. Meets discharge criteria.
--- NOTE | 2019-11-12 16:08 | PC.NURSE ---
1319: pt tolerated procedure well, 2PA from table to wc, returned to pre proc room for further monitoring
== END 2019-11-12 13:48 ==
LOC: RAD 12:19
PROVIDERS: Family Provider Internal Medicine; PCP Internal Medicine; Referring Provider Internal Medicine; Visit Provider Physical Medicine & Rehabilitation
DX: M48.061 Spinal stenosis, lumbar region without neurogenic claudication (principal); M51.16 Intervertebral disc disorders with radiculopathy, lumbar region
CPT/HCPCS: 64483; 99152; J0702; J1100; J2250; J3010

== ENCOUNTER → 2019-12-19 14:10 | Outpatient (CLI) | payer MEDICARE, SELFPAY ==
[2019-12-19 14:47] LABS: Add Manual Diff / Slide Review NO; Basophils Absolute Auto 0 /uL (0-100); Basophils Percent Auto 0.8 % (0-2); Eosinophils Absolute Auto 100 /uL (0-450); Eosinophils Percent Auto 1.9 % (2-4); Hematocrit 41.2 % (36-46); Hemoglobin 13.9 g/dL (12.0-16.0); Lymphocytes Absolute Auto 1300 /uL (1100-4500); Lymphocytes Percent Auto 21.8 % (25-40); Mean Corpuscular HGB Conc 33.8 % (30-36); Mean Corpuscular Hemoglobin 32.7 PG (26-34); Mean Corpuscular Volume 96.7 fL (80-100); Monocytes Absolute Auto 800 /uL (0-900); Monocytes Percent Auto 14.3 % (3-14); Neutrophils Absolute Auto 3600 /uL (1500-7000); Neutrophils Percent Auto 61.2 % (50-75); Platelet Count 201 X10^3/uL (150-400); Red Blood Cell Count 4.26 X10^6/uL (4.0-5.2); White Blood Cell Count 5.9 X10^3/uL (4.5-11.0)
[2019-12-19 14:57] LABS: Alanine Aminotransferase 13 IU/L (<35); Albumin 4.3 g/dL (3.5-5.0); Albumin Globulin Ratio 1.5 (1.0-2.8); Alkaline Phosphatase 79 U/L (38-126); Aspartate Aminotransferase 26 IU/L (14-36); BUN Creatinine Ratio 19.5 (6-22); Bilirubin Total 0.6 mg/dL (0.2-1.3); Blood Urea Nitrogen 17 mg/dL (7-17); Calcium 9.6 mg/dL (8.4-10.2); Carbon Dioxide 34 mmol/L (22-32); Chloride 98 mmol/L (98-107); Estimated Glomerular Filt Rate > 60.0 mL/min (>60); Globulin 2.8 g/dL (1.7-4.1); Glucose 93 mg/dL (80-110); HEMOLYSIS < 15 (0-50); Potassium 4.2 mmol/L (3.4-5.1); Sodium 136 mmol/L (137-145); Total Protein 7.1 g/dL (6.3-8.2)
[2019-12-19 15:26] LABS: TSH w/ Reflex to FT4 3.27 uIU/mL (0.47-4.68)
[2019-12-19 15:27] LABS: Thyroid Stimulating Hormone 3.26 uIU/mL (0.47-4.68)
== END ==
PROVIDERS: Family Provider Internal Medicine; PCP Internal Medicine; Referring Provider Internal Medicine; Visit Provider Internal Medicine
DX: E78.2 Mixed hyperlipidemia (principal); I10 Essential (primary) hypertension; I48.20 Chronic atrial fibrillation, unspecified; Z79.01 Long term (current) use of anticoagulants
CPT/HCPCS: 36415; 80053; 84443; 85025

== ENCOUNTER → 2019-12-30 12:18 | Outpatient (CLI) | payer MEDICARE, SELFPAY ==
--- NOTE | 2019-12-30 12:19 | DI.RAD.S_ITS ---
PROCEDURE: XR LUMBAR SPINE MIN 4V INDICATIONS: lumbar radiculopathy TECHNIQUE: 5 views of the lumbar spine were acquired. COMPARISON: [facility], SPINE LUMB MIN 4VW, 05/03/2016, 11:46. FINDINGS: Bones: No fracture. Multilevel degenerative endplate sclerosis and spurring. Diffuse facet arthropathy. Grade 1 retrolisthesis of L1 on L2 or L2 on L3. Trace anterolisthesis of L3 on L4. Grade 1 anterolisthesis of L4 on L5. There is also grade 1 anterolisthesis of L5 on S1. Posterior surgical spinal fixation hardware seen at L4-L5 which appears intact. Soft tissues: Overlying bowel gas pattern is normal. No suspicious soft tissue calcifications. Scattered vascular calcifications seen in the aorta. Oblique images: No pars defects. IMPRESSION: Multilevel spondylolisthesis as above. This appears unchanged Postsurgical and spondylitic changes as above, with progressive endplate sclerosis and disc space narrowing primarily involving the upper lumbar spine since the prior study dated 05/03/16. Diffuse facet arthropathy Dictated by: Sorin Marlow M.D. on 12/30/2019 at 13:52 Approved by: Sorin Marlow M.D. on 12/30/2019 at 13:55
== END ==
PROVIDERS: Family Provider Internal Medicine; PCP Internal Medicine; Referring Provider Physical Medicine & Rehabilitation; Visit Provider Physical Medicine & Rehabilitation
DX: M47.26 Other spondylosis with radiculopathy, lumbar region (principal); M43.16 Spondylolisthesis, lumbar region; M43.17 Spondylolisthesis, lumbosacral region; M48.061 Spinal stenosis, lumbar region without neurogenic claudication; M17.12 Unilateral primary osteoarthritis, left knee; Z98.1 Arthrodesis status; Z79.01 Long term (current) use of anticoagulants; Z96.649 Presence of unspecified artificial hip joint
CPT/HCPCS: 72110; 99213

== ENCOUNTER → 2020-06-15 14:32 | Outpatient (CLI) | payer MEDICARE, SELFPAY ==
[2020-06-15 15:37] LABS: COVID19 -Nasal RAPID Negative (Negative)
== END ==
PROVIDERS: Family Provider Internal Medicine; PCP Internal Medicine; Visit Provider Physical Medicine & Rehabilitation
DX: Z20.822 Contact with and (suspected) exposure to COVID-19 (principal)
CPT/HCPCS: 87635; C9803

== ENCOUNTER 2020-06-16 13:32 | Outpatient (CLI) | payer MEDICARE, SELFPAY ==
[2020-06-16] VITALS (8 sets, daily range): BP systolic 117–138; BP diastolic 58–79; PULSE 70–86; RESP 15–18; TEMP 36.6; O2SAT 92–98
--- NOTE | 2020-06-16 13:40 | DI.RAD.S_ITS ---
PROCEDURE: PAIN L/S TRANSFORAMINAL INJECT INDICATIONS: Right L3-4 transforaminal NORA COMPARISON: [facility] [place], [place], SPINE LUMB MIN 4VW, 05/03/2016, 11:46. CT, L-SPINE WITHOUT CONTRAST, 09/02/2016, 11:59. [facility], [place], XR LUMBAR SPINE MIN 4V, 12/30/2019, 12:26. FINDINGS: Fluoroscopic spot filming was performed to verify placement of spinal needles at the L3-L4 level(s), as labeled on the films. Appropriate location(s) of the needle tip(s) was confirmed by injection of iodinated contrast. Note is made of L4-L5 fusion. IMPRESSION: Fluoroscopy for pain management. Dictated by: Arturo Villarreal M.D. on 06/16/2020 at 15:46 Approved by: Arturo Villarreal M.D. on 06/16/2020 at 15:47
[2020-06-16] MEDS: MIDAZOLAM 5 MG/5 ML VIAL IV (14:30)
[2020-06-16] MEDS: fentaNYL 100 MCG/2 ML INJ 50 MCG IV (14:30)
[2020-06-16] MEDS: BUPIVACAINE 0.25% (PF) VIAL 5 ML SUBCUT (14:32)
[2020-06-16] MEDS: IOPAMIDOL 15 ML VIAL 3 ML INJ (14:34)
[2020-06-16] MEDS: BETAMETHASONE 30 MG/5 ML MDV 6 MG INJ (14:35)
[2020-06-16] MEDS: DEXAMETHASONE 10 MG/ML VIAL 20 MG INJ (14:36)
--- NOTE | 2020-06-16 14:46 | P.PCN_ITS ---
Date/Time/Diagnoses Date of procedure: 06/16/20 Time of procedure: 14:46 Pre-procedure diagnosis: 1. FORAMINAL STENOSIS WITH LE SYMPTOMS Post-procedure diagnosis: same Procedure Notes Procedure: 1. FLUOROSCOPICALLY GUIDED CONTRAST CONTROLLED TRANSFORAMINAL EPIDURAL STEROID INJECTION - RIGHT L3/4 TFESI Indications: Ana is referred by Dr. Valerio for treatment of Foraminal Stenosis with right LE Symptoms Physician: Herrera Mcintosh Total Fluoroscopy time (seconds): 14 Total sedation minutes: 10 Complications: none Procedure in detail & Post-procedure care: FINDINGS Foraminal Nerve Root Compression secondary to disc disease and facet hypertrophy DESCRIPTION OF PROCEDURE Following review of allergy and review of potential side effects and complications, including, but not necessarily limited to, infection, allergic reaction, local tissue breakdown, stroke, temporary or permanent nerve injury, paralysis, and possible , the patient indicated that the patient understood and agreed to proceed. An informed consent document was signed by the patient, witnessed by a nurse, and placed in the patient's chart. Additionally, other treatment options including medications, modalities, and physical therapy were reviewed with the patient. After review of previous anaesthesic history and IV conscious sedation the patient was deemed safe to proceed with today?s procedure with IV conscious sedation as ASA class II designation. Safety time-out was performed to confirm patient ID, procedure to be performed and site of procedure. IV sedation was accomplished with a combination of 1mg of Versed and 50mcg of Fentanyl was administered by the RN after DO order, titrated to patient comfort during the course of the procedure while the patient remained responsive to all verbal commands In the prone position following sterile prep and drape of the lumbar region, the right L3/4 posterior neuroforamen was identified fluoroscopically. The skin was anesthetized via a 25-gauge 1.5-inch needle with 1% lidocaine solution. At this point, a 25-gauge 3.5-inch spinal needle was atraumatically introduced and advanced under fluoroscopic guidance through the posterior right L3/4 n euroforamen to approximately the anterior aspect of the canal. Depth was confirmed on lateral view. Following negative aspiration, injection of approximately 1.5 cc of Isovue 200 under live fluoroscopy in the AP view confirmed excellent flow along the nerve root, into the epidural space without vascular or intrathecal uptake observed Radiological data, including multiple fluoroscopic views of the lumbosacral spine, reveal a spinal needle at the right L3/4 posterior neuroforamen. Subsequent views show flow of contrast material flowing superiorly and inferiorly along the nerve root confirming epidural flow. Subsequently, a test dose of 1.5 cc of 1% lidocaine solution was administered and patient was observed for two minutes for signs or symptoms of complications, including abdominal pain, shortness of breath, bilateral upper or lower extremity weakness, nausea and vomiting, prior to steroid injection. At this point, a total of 3cc or 20mg of dexamethasone and 6mg of betamethasone was injected without incident. The patient tolerated the procedure well without signs or symptoms of complications prior to transfer to the recovery area continued monitoring without incident. The patient was then transferred to the recovery area where they were observed for an appropriate time after the injection. The patient reported a VAS score of 7 prior to the procedure and a post-procedure VAS of 0. POST OP INSTRUCTIONS The patient was provided a Pain Log to continue to record their response to the target-specific procedure prior to follow-up visit with their referring physician. Additionally, specific post-injection care instructions and a contact number to our office were provided if concerns arise regarding possible complications associated with the procedure are suspected.
== END 2020-06-16 15:05 | disposition home or self-care (01) ==
LOC: RAD 13:39
PROVIDERS: Family Provider Internal Medicine; PCP Internal Medicine; Referring Provider Physical Medicine & Rehabilitation; Visit Provider Physical Medicine & Rehabilitation
DX: M48.061 Spinal stenosis, lumbar region without neurogenic claudication (principal); M51.16 Intervertebral disc disorders with radiculopathy, lumbar region
CPT/HCPCS: 64483; 99152; J0702; J1100; J2250; J3010

== ENCOUNTER → 2020-10-13 15:51 | Outpatient (CLI) | payer MEDICARE, SELFPAY ==
[2020-10-13 17:27] LABS: BUN Creatinine Ratio 17.9 (6-22); Blood Urea Nitrogen 15 mg/dL (7-17); Calcium 9.3 mg/dL (8.4-10.2); Carbon Dioxide 33 mmol/L (22-32); Chloride 95 mmol/L (98-107); Estimated Glomerular Filt Rate > 60.0 mL/min (>60); Glucose 85 mg/dL (80-110); HEMOLYSIS < 15 (0-50); Potassium 3.8 mmol/L (3.4-5.1); Sodium 135 mmol/L (137-145)
== END ==
PROVIDERS: Family Provider Internal Medicine; PCP Internal Medicine; Referring Provider Internal Medicine Cardiovascular Disease; Visit Provider Internal Medicine Cardiovascular Disease
DX: I10 Essential (primary) hypertension (principal)
CPT/HCPCS: 36415; 80048

== ENCOUNTER → 2020-12-21 10:32 | Outpatient (CLI) | payer MEDICARE, SELFPAY ==
[2020-12-21 14:24] LABS: COVID19 -Nasal RAPID Negative (Negative)
== END ==
PROVIDERS: Family Provider Internal Medicine; PCP Internal Medicine; Visit Provider Physical Medicine & Rehabilitation
DX: Z20.822 Contact with and (suspected) exposure to COVID-19 (principal)
CPT/HCPCS: 87635; C9803

== ENCOUNTER 2020-12-22 12:25 | Outpatient (CLI) | payer MEDICARE, SELFPAY ==
[2020-12-22] VITALS (8 sets, daily range): BP systolic 99–140; BP diastolic 55–79; PULSE 68–90; RESP 16–24; TEMP 36.3; O2SAT 90–94
--- NOTE | 2020-12-22 12:31 | DI.RAD.S_ITS ---
PROCEDURE: PAIN L/S TRANSFORAMINAL INJECT INDICATIONS: Right L3-4 transforaminal NORA COMPARISON: [facility], , PAIN L/S TRANSFORAMINAL INJECT, 06/16/2020, 14:28. FINDINGS: Fluoroscopic spot filming was performed to verify placement of a spinal needle at the L3-L4 level, as labeled on the films. Appropriate location of the needle tip was confirmed by injection of iodinated contrast. IMPRESSION: Intraprocedural examination within normal limits. Dictated by: Lucas Godoy M.D. on 12/22/2020 at 13:56 Approved by: Lucas Godoy M.D. on 12/22/2020 at 13:56
[2020-12-22] MEDS: fentaNYL 100 MCG/2 ML INJ 50 MCG IV (13:35)
[2020-12-22] MEDS: MIDAZOLAM 5 MG/5 ML VIAL IV (13:35)
[2020-12-22] MEDS: IOPAMIDOL 15 ML VIAL 3 ML INJ (13:37)
[2020-12-22] MEDS: BUPIVACAINE 0.25% (PF) VIAL 2 ML INJ (13:37)
[2020-12-22] MEDS: BETAMETHASONE 30 MG/5 ML MDV 12 MG INJ (13:38)
[2020-12-22] MEDS: DEXAMETHASONE 10 MG/ML VIAL 20 MG INJ (13:38)
--- NOTE | 2020-12-22 13:44 | PM.PROC.IR.1 ---
Date/Time/Diagnoses Date of procedure: 12/22/20 Time of procedure: 13:45 Pre-procedure diagnosis: 1. FORAMINAL STENOSIS WITH LE SYMPTOMS Post-procedure diagnosis: same Procedure Notes Procedure: 1. FLUOROSCOPICALLY GUIDED CONTRAST CONTROLLED TRANSFORAMINAL EPIDURAL STEROID INJECTION - RIGHT L3/4 TFESI Indications: Ana is referred by Dr. Valerio for treatment of Foraminal Stenosis with right LE Symptoms Physician: Herrera Mcintosh Total sedation minutes: 12 Complications: none Procedure in detail & Post-procedure care: FINDINGS Foraminal Nerve Root Compression secondary to disc disease and facet hypertrophy DESCRIPTION OF PROCEDURE Following review of allergy and review of potential side effects and complications, including, but not necessarily limited to, infection, allergic reaction, local tissue breakdown, stroke, temporary or permanent nerve injury, paralysis, and possible , the patient indicated that the patient understood and agreed to proceed. An informed consent document was signed by the patient, witnessed by a nurse, and placed in the patient's chart. Additionally, other treatment options including medications, modalities, and physical therapy were reviewed with the patient. After review of previous anaesthesic history and IV conscious sedation the patient was deemed safe to proceed with today?s procedure with IV conscious sedation as ASA class II designation. Safety time-out was performed to confirm patient ID, procedure to be performed and site of procedure. IV sedation was accomplished with a combination of 2mg of Versed and 50mcg of Fentanyl was administered by the RN after DO order, titrated to patient comfort during the course of the procedure while the patient remained responsive to all verbal commands In the prone position following sterile prep and drape of the lumbar region, the right L3/4 posterior neuroforamen was identified fluoroscopically. The skin was anesthetized via a 25-gauge 1.5-inch needle with 1% lidocaine solution. At this point, a 25-gauge 3.5-inch spinal needle was atraumatically introduced and advanced under fluoroscopic guidance through the posterior right L3/4 neuroforamen to approximately the anterior aspect of the canal. Depth was confirmed on lateral view. Following negative aspiration, injection of approximately 1.5 cc of Isovue 200 under live fluoroscopy in the AP view confirmed excellent flow along the nerve root, into the epidural space without vascular or intrathecal uptake observed Radiological data, including multiple fluoroscopic views of the lumbosacral spine, reveal a spinal needle at the right L3/4 posterior neuroforamen. Subsequent views show flow of contrast material flowing superiorly and inferiorly along the nerve root confirming epidural flow. Subsequently, a test dose of 1.5 cc of 1% lidocaine solution was administered and patient was observed for two minutes for signs or symptoms of complications, including abdominal pain, shortness of breath, bilateral upper or lower extremity weakness, nausea and vomiting, prior to steroid injection. At this point, a total of 3cc or 20mg of dexamethasone and 6mg of betamethasone was injected without incident. The patient tolerated the procedure well without signs or symptoms of complications prior to transfer to the recovery area continued monitoring without incident. The patient was then transferred to the recovery area where they were observed for an appropriate time after the injection. The patient reported a VAS score of 7 prior to the procedure and a post-procedure VAS of 0. POST OP INSTRUCTIONS The patient was provided a Pain Log to continue to record their response to the target-specific procedure prior to follow-up visit with their referring physician. Additionally, specific post-injection care instructions and a contact number to our office were provided if concerns arise regarding possible complications associated with the procedure are suspected.
== END 2020-12-22 14:15 | disposition home or self-care (01) ==
LOC: RAD 12:26
PROVIDERS: Family Provider Internal Medicine; PCP Internal Medicine; Referring Provider Physical Medicine & Rehabilitation; Visit Provider Physical Medicine & Rehabilitation
DX: M48.061 Spinal stenosis, lumbar region without neurogenic claudication (principal)
CPT/HCPCS: 64483; 99152; J0702; J1100; J2250; J3010

== ENCOUNTER → 2021-06-14 10:25 | Outpatient (CLI) | payer MEDICARE, SELFPAY ==
[2021-06-14 13:48] LABS: COVID19 -Nasal RAPID Negative (Negative)
== END ==
PROVIDERS: Family Provider Internal Medicine; PCP Internal Medicine; Visit Provider Physical Medicine & Rehabilitation
DX: Z20.822 Contact with and (suspected) exposure to COVID-19 (principal)
CPT/HCPCS: 87635; C9803

== ENCOUNTER 2021-06-15 12:29 | Outpatient (CLI) | payer MEDICARE, SELFPAY ==
[2021-06-15] VITALS (10 sets, daily range): BP systolic 84–151; BP diastolic 51–92; PULSE 64–81; RESP 12–22; TEMP 36.8; O2SAT 87–97
--- NOTE | 2021-06-15 12:37 | DI.RAD.S_ITS ---
PROCEDURE: PAIN L/S TRANSFORAMINAL INJECT INDICATIONS: Spondylosis COMPARISON: [facility], , PAIN L/S TRANSFORAMINAL INJECT, 12/22/2020, 13:37. FINDINGS: Fluoroscopic spot filming was performed to verify placement of spinal needles at the right L3-4 level(s), as labeled on the films. Appropriate location(s) of the needle tip(s) was confirmed by injection of iodinated contrast. IMPRESSION: Fluoroscopic support for needle placement at the right side of L3-4 for transforaminal injection. Please see procedure note for further details. Dictated by: Homar Vasquez M.D. on 06/15/2021 at 15:42 Approved by: Homar Vasquez M.D. on 06/15/2021 at 15:43
[2021-06-15] MEDS: IOPAMIDOL 15 ML VIAL 3 ML INJ (13:27)
[2021-06-15] MEDS: BETAMETHASONE 30 MG/5 ML MDV 6 MG INJ (13:27)
[2021-06-15] MEDS: BUPIVACAINE 0.25% (PF) VIAL 2 ML INJ (13:27)
[2021-06-15] MEDS: DEXAMETHASONE 10 MG/ML VIAL 20 MG INJ (13:28)
--- NOTE | 2021-06-15 13:45 | PM.PROC.IR.1 ---
Date/Time/Diagnoses Date of procedure: 06/15/21 Time of procedure: 13:45 Pre-procedure diagnosis: 1. FORAMINAL STENOSIS WITH LE SYMPTOMS Post-procedure diagnosis: same Procedure Notes Procedure: 1. FLUOROSCOPICALLY GUIDED CONTRAST CONTROLLED TRANSFORAMINAL EPIDURAL STEROID INJECTION - RIGHT L3/4 TFESI Indications: Ana is referred by Dr. Valerio for treatment of Foraminal Stenosis with right LE Symptoms Physician: Herrera Mcintosh Total Fluoroscopy time (seconds): 17 Total sedation minutes: 0 Complications: none Procedure in detail & Post-procedure care: FINDINGS Foraminal Nerve Root Compression secondary to disc disease and facet hypertrophy DESCRIPTION OF PROCEDURE Following review of allergy and review of potential side effects and complications, including, but not necessarily limited to, infection, allergic reaction, local tissue breakdown, stroke, temporary or permanent nerve injury, paralysis, and possible , the patient indicated that the patient understood and agreed to proceed. An informed consent document was signed by the patient, witnessed by a nurse, and placed in the patient's chart. Additionally, other treatment options including medications, modalities, and physical therapy were reviewed with the patient. After review of previous anaesthesic history and IV conscious sedation the patient was deemed safe to proceed with today?s procedure with IV conscious sedation as ASA class II designation. Safety time-out was performed to confirm patient ID, procedure to be performed and site of procedure. IV sedation was deemed unnecessary and thus not administered by the RN after DO order, titrated to patient comfort during the course of the procedure while the patient remained responsive to all verbal commands In the prone position following sterile prep and drape of the lumbar region, the right L3/4 posterior neuroforamen was identified fluoroscopically. The skin was anesthetized via a 25-gauge 1.5-inch needle with 1% lidocaine solution. At this point, a 25-gauge 3.5-inch spinal needle was atraumatically introduced and advanced under fluoroscopic guidance through the posterior right L3/4 neuroforamen to approximately the anterior aspect of the canal. Depth was confirmed on lateral view. Following negative aspiration, injection of approximately 1.5 cc of Isovue 200 under live fluoroscopy in the AP view confirmed excellent flow along the nerve root, into the epidural space without vascular or intrathecal uptake observed Radiological data, including multiple fluoroscopic views of the lumbosacral spine, reveal a spinal needle at the right L3/4 posterior neuroforamen. Subsequent views show flow of contrast material flowing superiorly and inferiorly along the nerve root confirming epidural flow. Subsequently, a test dose of 1.5 cc of 1% lidocaine solution was administered and patient was observed for two minutes for signs or symptoms of complications, including abdominal pain, shortness of breath, bilateral upper or lower extremity weakness, nausea and vomiting, prior to steroid injection. At this point, a total of 3cc or 20mg of dexamethasone and 6mg of betamethasone was injected without incident. The patient tolerated the procedure well without signs or symptoms of complications prior to transfer to the recovery area continued monitoring without incident. The patient was then transferred to the recovery area where they were observed for an appropriate time after the injection. The patient reported a VAS score of 7 prior to the procedure and a post-procedure VAS of 0. POST OP INSTRUCTIONS The patient was provided a Pain Log to continue to record their response to the target-specific procedure prior to follow-up visit with their referring physician. Additionally, specific post-injection care instructions and a contact number to our office were provided if concerns arise regarding possible complications associated with the procedure are suspected.
== END 2021-06-15 14:35 | disposition home or self-care (01) ==
LOC: RAD 12:32
PROVIDERS: Family Provider Internal Medicine; PCP Internal Medicine; Referring Provider Physical Medicine & Rehabilitation; Visit Provider Physical Medicine & Rehabilitation
DX: M48.061 Spinal stenosis, lumbar region without neurogenic claudication (principal); M51.16 Intervertebral disc disorders with radiculopathy, lumbar region
CPT/HCPCS: 64483; J0702; J1100; J2250; J3010

== ENCOUNTER 2022-01-11 12:54 | Outpatient (CLI) | payer MEDICARE, SELFPAY ==
[2022-01-11] VITALS (8 sets, daily range): BP systolic 90–162; BP diastolic 52–77; PULSE 65–87; RESP 15–21; TEMP 36.1; O2SAT 92–97
--- NOTE | 2022-01-11 12:57 | DI.RAD.S_ITS ---
PROCEDURE: PAIN L/S TRANSFORAMINAL INJECT INDICATIONS: SPONDYLOSIS COMPARISON: [facility], , PAIN L/S TRANSFORAMINAL INJECT, 06/15/2021, 14:28. FINDINGS: Fluoroscopic spot filming was performed to verify placement of spinal needles at the left L3-4 level(s), as labeled on the films. Appropriate location(s) of the needle tip(s) was confirmed by injection of iodinated contrast. IMPRESSION: Fluoroscopic guidance Approved by: All Clark M.D. on 01/11/2022 at 16:20
[2022-01-11] MEDS: MIDAZOLAM 2 MG/2 ML VIAL 1 MG IV (13:56)
[2022-01-11] MEDS: IOPAMIDOL 15 ML VIAL 3 ML INJ (13:59)
[2022-01-11] MEDS: BUPIVACAINE 0.25% (PF) VIAL 2 ML INJ (13:59)
[2022-01-11] MEDS: DEXAMETHASONE 10 MG/ML VIAL 20 MG INJ (13:59)
[2022-01-11] MEDS: BETAMETHASONE 30 MG/5 ML MDV 6 MG INJ (13:59)
--- NOTE | 2022-01-11 14:16 | P.PCN_ITS ---
Date/Time/Diagnoses Date of procedure: 01/11/22 Time of procedure: 14:16 Pre-procedure diagnosis: 1. FORAMINAL STENOSIS WITH LE SYMPTOMS Post-procedure diagnosis: same Procedure Notes Procedure: 1. FLUOROSCOPICALLY GUIDED CONTRAST CONTROLLED TRANSFORAMINAL EPIDURAL STEROID INJECTION - LEFT L3/4 TFESI Indications: Ana is referred by Dr. Valerio for treatment of Foraminal Stenosis with left LE Symptoms Physician: Herrera Mcintosh Total Fluoroscopy time (seconds): 16 Total sedation minutes: 13 Complications: none Procedure in detail & Post-procedure care: FINDINGS Foraminal Nerve Root Compression secondary to disc disease and facet hypertrophy DESCRIPTION OF PROCEDURE Following review of allergy and review of potential side effects and complications, including, but not necessarily limited to, infection, allergic reaction, local tissue breakdown, stroke, temporary or permanent nerve injury, paralysis, and possible , the patient indicated that the patient understood and agreed to proceed. An informed consent document was signed by the patient, witnessed by a nurse, and placed in the patient's chart. Additionally, other treatment options including medications, modalities, and physical therapy were reviewed with the patient. After review of previous anaesthesic history and IV conscious sedation the patient was deemed safe to proceed with today?s procedure with IV conscious sedation as ASA class II designation. Safety time-out was performed to confirm patient ID, procedure to be performed and site of procedure. IV sedation was accomplished with a combination of 1mg of Versed was administered by the RN after DO order, titrated to patient comfort during the course of the procedure while the patient remained responsive to all verbal commands In the prone position following sterile prep and drape of the lumbar region, the left L3/4 posterior neuroforamen was identified fluoroscopically. The skin was anesthetized via a 25-gauge 1.5-inch needle with 1% lidocaine solution. At this point, a 25-gauge 3.5-inch spinal needle was atraumatically introduced and advanced under fluoroscopic guidance through the posterior left L3/4 neuroforamen to approximately the anterior aspect of the canal. Depth was confirmed on lateral view. Following negative aspiration, injection of approximately 1.5 cc of Isovue 200 under live fluoroscopy in the AP view confirm ed excellent flow along the nerve root, into the epidural space without vascular or intrathecal uptake observed Radiological data, including multiple fluoroscopic views of the lumbosacral spine, reveal a spinal needle at the left L3/4 posterior neuroforamen. Subsequent views show flow of contrast material flowing superiorly and inferiorly along the nerve root confirming epidural flow. Subsequently, a test dose of 1.5cc of 1% lidocaine solution was administered and patient was observed for two minutes for signs or symptoms of complications, including abdominal pain, shortness of breath, bilateral upper or lower extremity weakness, nausea and vomiting, prior to steroid injection. At this point, a total of 3cc or 20mg of dexamethasone and 6mg betamethasone was injected without incident. The patient tolerated the procedure well without signs or symptoms of complications prior to transfer to the recovery area continued monitoring without incident. The patient was then transferred to the recovery area where they were observed for an appropriate time after the injection. The patient reported a VAS score of 7 prior to the procedure and a post-procedure VAS of 0. POST OP INSTRUCTIONS The patient was provided a Pain Log to continue to record their response to the target-specific procedure prior to follow-up visit with their referring physician. Additionally, specific post-injection care instructions and a contact number to our office were provided if concerns arise regarding possible complications associated with the procedure are suspected.
== END 2022-01-11 14:35 | disposition home or self-care (01) ==
PROVIDERS: Family Provider Internal Medicine; PCP Internal Medicine; Referring Provider Physical Medicine & Rehabilitation; Visit Provider Physical Medicine & Rehabilitation
DX: M48.061 Spinal stenosis, lumbar region without neurogenic claudication (principal); M51.16 Intervertebral disc disorders with radiculopathy, lumbar region
CPT/HCPCS: 64483; 99152; J0702; J1100; J2250; J3490

== ENCOUNTER → 2022-04-04 10:02 | Outpatient (CLI) | payer MEDICARE, SELFPAY ==
[2022-04-04 11:05] LABS: Add Manual Diff / Slide Review NO; Basophils Absolute Auto 0 /uL (0-100); Basophils Percent Auto 0.6 % (0-2); Eosinophils Absolute Auto 100 /uL (0-450); Hemoglobin 14.5 g/dL (12.0-16.0); Lymphocytes Absolute Auto 1200 /uL (1100-4500); Lymphocytes Percent Auto 29.6 % (25-40); Mean Corpuscular HGB Conc 33.7 % (30-36); Mean Corpuscular Hemoglobin 33.6 PG (26-34); Mean Corpuscular Volume 99.7 fL (80-100); Monocytes Absolute Auto 600 /uL (0-900); Monocytes Percent Auto 14.6 % (3-14); Neutrophils Absolute Auto 2100 /uL (1500-7000); Neutrophils Percent Auto 53.2 % (50-75); Platelet Count 193 X10^3/uL (150-400); Red Blood Cell Count 4.32 X10^6/uL (4.0-5.2); Red Cell Distribution Width 13.4 % (11.6-14.8)
[2022-04-04 11:20] LABS: Alanine Aminotransferase 17 IU/L (<35); Albumin 4.3 g/dL (3.5-5.0); Albumin Globulin Ratio 1.7 (1.0-2.8); Alkaline Phosphatase 66 U/L (38-126); Aspartate Aminotransferase 25 IU/L (14-36); BUN Creatinine Ratio 12.3 (6-22); Bilirubin Total 0.9 mg/dL (0.2-1.3); Blood Urea Nitrogen 10 mg/dL (7-17); Calcium 9.4 mg/dL (8.4-10.2); Carbon Dioxide 34 mmol/L (22-32); Chloride 91 mmol/L (98-107); Cholesterol 187 mg/dL (140-199); Estimated Glomerular Filt Rate > 60 mL/min (>60); Globulin 2.6 g/dL (1.7-4.1); Glucose 88 mg/dL (80-110); HDL Cholesterol 63 mg/dL (40-60); HEMOLYSIS < 15 (0-50); LDL Cholesterol Calculated 95 mg/dL (<100); Potassium 3.5 mmol/L (3.4-5.1); Sodium 136 mmol/L (137-145); Total Protein 6.9 g/dL (6.3-8.2); Triglycerides 144 mg/dL (35-150)
[2022-04-04 11:49] LABS: Thyroid Stimulating Hormone 2.67 uIU/mL (0.47-4.68)
== END ==
PROVIDERS: Family Provider Internal Medicine; PCP Internal Medicine; Referring Provider Internal Medicine; Visit Provider Internal Medicine
DX: E03.9 Hypothyroidism, unspecified (principal); E78.2 Mixed hyperlipidemia; I10 Essential (primary) hypertension
CPT/HCPCS: 36415; 80053; 80061; 84439; 84443; 85025

== ENCOUNTER → 2022-07-26 14:06 | Outpatient (CLI) | payer MEDICARE, SELFPAY ==
--- NOTE | 2022-07-26 14:09 | DI.RAD.S_ITS ---
PROCEDURE: XR KNEE LT 3V INDICATIONS: left knee djd TECHNIQUE: 3 views of the knee were acquired. COMPARISON: [facility], , XR KNEE LT 3V, 05/30/2019, 11:09. FINDINGS: Bones: No fractures or dislocations. No suspicious bony lesions. Tricompartmental joint space narrowing with associated osteophytosis. Bony deformity about the patellofemoral and tibiofemoral compartments. Soft tissues: No joint effusion. No suspicious soft tissue calcifications. IMPRESSION: Marked tricompartmental knee osteoarthritis. Dictated by: Luiz Munoz M.D. on 07/26/2022 at 16:26 Approved by: Luiz Munoz M.D. on 07/26/2022 at 16:26
--- NOTE | 2022-07-26 14:09 | DI.CT.S_ITS ---
PROCEDURE: CT LUMBAR SPINE WO CON INDICATIONS: LUMBAR STENOSIS S/P FUSION TECHNIQUE: Noncontrast 3 mm thick sections acquired from the T12 level to the sacrum. Sagittal and coronal reformats were constructed. For radiation dose reduction, the following was used: automated exposure control. COMPARISON: [facility], CT, L-SPINE WITHOUT CONTRAST, 09/02/2016, 11:59. [facility], CR, XR LUMBAR SPINE MIN 4V, 07/26/2022, 14:14. [facility], CT, L-SPINE WITHOUT CONTRAST, 02/15/2011, 11:03. FINDINGS: Image quality: There is artifact associated with the metallic hardware. Artifact from the metallic hardware is reduced by metal reconstruction algorithm. Bones: No acute vertebral body compression fractures. No suspicious lytic or blastic bony lesions. No pars defects. There is minimal retrolisthesis at T12-L1, with mild retrolisthesis at L1-L2 and L2-L3. Minimal anterolisthesis is seen at L4-L5. Mild grade 1 anterolisthesis is seen at L5-S1. No associated pars defects are seen. T11-T12: Moderate to severe loss of disc height is seen. Endplate irregularity and sclerosis can be seen. Bridging endplate osteophytes are seen on the right and on the left. Moderate generalized disc bulge is seen, which is eccentric to the right. There is moderate right-sided and mild left-sided facet hypertrophy seen. There is moderate to severe right-sided and no left-sided neural foraminal narrowing. Mild central canal narrowing is seen. These imaging findings have progressed compared to the prior study. T12-L1: Moderate loss of disc height is seen. Vacuum disc phenomenon is seen at this level. Moderate generalized disc bulge is seen. Bridging endplate osteophytes are seen, right worse than left. Mild to moderate bilateral neural foraminal narrowing can be seen. Mild central canal narrowing is seen. When comparison is made with the prior images, these findings are similar. L1-L2: At least moderate loss of disc height is seen. Endplate irregularity and sclerosis can be seen. Vacuum disc phenomenon is seen at this level. At least moderate disc bulge is seen. Mild facet joint hypertrophy is seen. There is at least moderate left-sided and moderate right-sided neural foraminal narrowing. Mild central canal narrowing is seen. When comparison is made with the prior images, these findings are similar. L2-L3: At least moderate loss of disc height is seen. Vacuum disc phenomenon is seen at this level. Endplate irregularity and sclerosis can be seen. At least moderate disc bulge is seen. Mild to moderate facet hypertrophy can be seen. Moderate to severe bilateral neural foraminal narrowing is seen. Moderate central canal narrowing is seen. These imaging findings have progressed compared to the prior study. L3-L4: The disc height is relatively well preserved. Vacuum disc phenomenon is seen at this level. Moderate generalized disc bulge is seen. There is at least moderate bilateral neural foraminal narrowing seen. Moderate central canal narrowing is seen. There is mild progression compared to 2017. L4-L5: Postoperative changes are seen at this level, with bilateral pedicle screws, vertical fixation rods, and a disc spacer. Moderate generalized disc bulge is seen. At least moderate facet hypertrophy is seen. There is at least moderate right-sided and moderate left-sided neural foraminal narrowing. No significant central canal narrowing is seen. When comparison is made with the prior images, these findings are similar. L5-S1: The disc height is relatively well preserved. Prominent facet hypertrophy is seen at this level. Mild generalized disc bulge is seen. Moderate to severe bilateral neural foraminal narrowing can be seen. Mild to moderate central canal narrowing is seen. When comparison is made with the prior images, these findings are similar. Bilateral hip arthroplasty hardware is seen, with associated prominent streak artifact, limiting evaluation through the pelvis. Soft tissues: No retroperitoneal masses or hematomas. Visualized aorta is normal in caliber. Atherosclerotic calcification is noted. Cholecystectomy clips are seen. IMPRESSION: Unremarkable L4-L5 postoperative hardware. Multiple levels of significant lumbar spine degenerative change are seen, which are progressed at T11-T12, L2-L3, and L3-L4 since 2017. Additional findings: Cholecystectomy Dictated by: Lucas Godoy M.D. on 07/26/2022 at 17:15 Approved by: Lucas Godoy M.D. on 07/26/2022 at 17:22
--- NOTE | 2022-07-26 14:09 | DI.RAD.S_ITS ---
PROCEDURE: XR LUMBAR SPINE MIN 4V INDICATIONS: s/p lumbar fusion with LBP and LE symptoms TECHNIQUE: 5 views of the lumbar spine were acquired, including bilateral oblique views. COMPARISON: [facility], , XR LUMBAR SPINE MIN 4V, 12/30/2019, 12:26. FINDINGS: Bones: 5 nonrib-bearing vertebrae are present. Grade 1 anterolisthesis of L4 on L5, status post fusion, similar to prior. Slight leftward curvature of the spine. Moderate to severe, multilevel degenerative disc disease. Interbody fusion at L4-5. Soft tissues: Overlying bowel gas pattern is normal. No suspicious soft tissue calcifications. Oblique images: No pars defects. IMPRESSION: Posterior and interbody surgical fusion at L4-5, with similar grade 1 anterolisthesis. Moderate to severe, multilevel degenerative disc disease. Dictated by: Luiz Munoz M.D. on 07/26/2022 at 16:27 Approved by: Luiz Munoz M.D. on 07/26/2022 at 16:28
== END ==
PROVIDERS: Family Provider Internal Medicine; PCP Internal Medicine; Referring Provider Physical Medicine & Rehabilitation; Visit Provider Physical Medicine & Rehabilitation
DX: M51.16 Intervertebral disc disorders with radiculopathy, lumbar region (principal); M47.27 Other spondylosis with radiculopathy, lumbosacral region; M48.061 Spinal stenosis, lumbar region without neurogenic claudication; M17.12 Unilateral primary osteoarthritis, left knee; Z98.1 Arthrodesis status
CPT/HCPCS: 72110; 72131; 73562

== ENCOUNTER 2022-08-16 12:24 | Outpatient (CLI) | payer MEDICARE, SELFPAY ==
[2022-08-16] VITALS (9 sets, daily range): BP systolic 105–128; BP diastolic 56–69; PULSE 59–86; RESP 16–24; TEMP 36.6; O2SAT 91–95
--- NOTE | 2022-08-16 12:30 | DI.RAD.S_ITS ---
PROCEDURE: PAIN L/S TRANSFORAMINAL INJECT INDICATIONS: SPONDYLOSIS COMPARISON: [facility], , PAIN L/S TRANSFORAMINAL INJECT, 01/11/2022, 13:59. FINDINGS: Fluoroscopic spot filming was performed to verify placement of spinal needles at the right L3-L4 neural foramen level(s), as labeled on the films. Appropriate location(s) of the needle tip(s) was confirmed by injection of iodinated contrast. IMPRESSION: Access needles at the right L3-L4 neural foramen for transforaminal epidural steroid injection. Dictated by: Lindsey Fabian MD, PhD on 08/16/2022 at 14:22 Approved by: Lindsey Fabian MD, PhD on 08/16/2022 at 14:22
[2022-08-16] MEDS: DEXAMETHASONE 10 MG/ML VIAL 20 MG INJ (13:29)
[2022-08-16] MEDS: BUPIVACAINE 0.25% (PF) VIAL 3 ML INJ (13:30)
[2022-08-16] MEDS: MIDAZOLAM 2 MG/2 ML VIAL IV (13:30)
[2022-08-16] MEDS: BETAMETHASONE 30 MG/5 ML MDV 6 MG INJ (13:31)
[2022-08-16] MEDS: IOPAMIDOL 15 ML VIAL 3 ML INJ (13:32)
--- NOTE | 2022-08-16 13:47 | P.PCN_ITS ---
Date/Time/Diagnoses Date of procedure: 08/16/22 Time of procedure: 13:47 Pre-procedure diagnosis: 1. FORAMINAL STENOSIS WITH LE SYMPTOMS Post-procedure diagnosis: same Procedure Notes Procedure: 1. FLUOROSCOPICALLY GUIDED CONTRAST CONTROLLED TRANSFORAMINAL EPIDURAL STEROID INJECTION - RIGHT L3/4 TFESI Indications: Ana is referred by Dr. Valerio for treatment of Foraminal Stenosis with right LE Symptoms Physician: Herrera Mcintosh Total Fluoroscopy time (seconds): 14 Total sedation minutes: 15 Complications: none Procedure in detail & Post-procedure care: FINDINGS Foraminal Nerve Root Compression secondary to disc disease and facet hypertrophy DESCRIPTION OF PROCEDURE Following review of allergy and review of potential side effects and complications, including, but not necessarily limited to, infection, allergic reaction, local tissue breakdown, stroke, temporary or permanent nerve injury, paralysis, and possible , the patient indicated that the patient understood and agreed to proceed. An informed consent document was signed by the patient, witnessed by a nurse, and placed in the patient's chart. Additionally, other treatment options including medications, modalities, and physical therapy were reviewed with the patient. After review of previous anaesthesic history and IV conscious sedation the patient was deemed safe to proceed with today?s procedure with IV conscious sedation as ASA class II designation. Safety time-out was performed to confirm patient ID, procedure to be performed and site of procedure. IV sedation was accomplished with a combination of 2mg of Versed was administered by the RN after DO order, titrated to patient comfort during the course of the procedure while the patient remained responsive to all verbal commands In the prone position following sterile prep and drape of the lumbar region, the right L3/4 posterior neuroforamen was identified fluoroscopically. The skin was anesthetized via a 25-gauge 1.5-inch needle with 1% lidocaine solution. At this point, a 22-gauge 5-inch spinal needle was atraumatically introduced and advanced under fluoroscopic guidance through the posterior right L3/4 neuroforamen to approximately the anterior aspect of the canal. Depth was confirmed on lateral view. Following negative aspiration, injection of approximately 1.5 cc of Isovue 200 under live fluoroscopy in the AP view confi rmed excellent flow along the nerve root, into the epidural space without vascular or intrathecal uptake observed Radiological data, including multiple fluoroscopic views of the lumbosacral spine, reveal a spinal needle at the right L3/4 posterior neuroforamen. Subsequent views show flow of contrast material flowing superiorly and inferiorly along the nerve root confirming epidural flow. Subsequently, a test dose of 1.5 cc of 1% lidocaine solution was administered and patient was observed for two minutes for signs or symptoms of complications, including abdominal pain, shortness of breath, bilateral upper or lower extremity weakness, nausea and vomiting, prior to steroid injection. At this point, a total of 3cc or 20mg of dexamethasone and 6mg of betamethasone was injected without incident. The patient tolerated the procedure well without signs or symptoms of complications prior to transfer to the recovery area continued monitoring without incident. The patient was then transferred to the recovery area where they were observed for an appropriate time after the injection. The patient reported a VAS score of 7 prior to the procedure and a post-procedure VAS of 0. POST OP INSTRUCTIONS The patient was provided a Pain Log to continue to record their response to the target-specific procedure prior to follow-up visit with their referring phys ician. Additionally, specific post-injection care instructions and a contact number to our office were provided if concerns arise regarding possible complications associated with the procedure are suspected.
== END 2022-08-16 14:05 | disposition home or self-care (01) ==
PROVIDERS: Family Provider Internal Medicine; PCP Internal Medicine; Referring Provider Physical Medicine & Rehabilitation; Visit Provider Physical Medicine & Rehabilitation
DX: M48.061 Spinal stenosis, lumbar region without neurogenic claudication (principal); M51.16 Intervertebral disc disorders with radiculopathy, lumbar region
CPT/HCPCS: 64483; 99152; J0702; J1100; J2250

== ENCOUNTER → 2023-05-30 11:56 | Outpatient (CLI) | payer MEDICARE, SELFPAY ==
[2023-05-30 13:03] LABS: Add Manual Diff / Slide Review NO; Basophils Absolute Auto 0 /uL (0-100); Basophils Percent Auto 0.4 % (0-2); Eosinophils Absolute Auto 0 /uL (0-450); Eosinophils Percent Auto 0.7 % (2-4); Hematocrit 42.3 % (36-46); Hemoglobin 14.4 g/dL (12.0-16.0); Lymphocytes Absolute Auto 700 /uL (1100-4500); Lymphocytes Percent Auto 15.3 % (25-40); Mean Corpuscular HGB Conc 34.1 % (30-36); Mean Corpuscular Hemoglobin 34.2 PG (26-34); Mean Corpuscular Volume 100.2 fL (80-100); Monocytes Absolute Auto 500 /uL (0-900); Monocytes Percent Auto 12.1 % (3-14); Neutrophils Absolute Auto 3100 /uL (1500-7000); Neutrophils Percent Auto 71.5 % (50-75); Platelet Count 183 X10^3/uL (150-400); Red Blood Cell Count 4.22 X10^6/uL (4.0-5.2); Red Cell Distribution Width 13.2 % (11.6-14.8); White Blood Cell Count 4.3 X10^3/uL (4.5-11.0)
[2023-05-30 13:39] LABS: Alanine Aminotransferase 14 IU/L (<35); Albumin 4.2 g/dL (3.5-5.0); Albumin Globulin Ratio 1.6 (1.0-2.8); Alkaline Phosphatase 69 U/L (38-126); Aspartate Aminotransferase 26 IU/L (14-36); BUN Creatinine Ratio 14.9 (6-22); Bilirubin Total 1.1 mg/dL (0.2-1.3); Blood Urea Nitrogen 13 mg/dL (7-17); Calcium 9.7 mg/dL (8.4-10.2); Carbon Dioxide 35 mmol/L (22-32); Chloride 92 mmol/L (98-107); Estimated Glomerular Filt Rate > 60 mL/min (>60); Globulin 2.6 g/dL (1.7-4.1); Glucose 108 mg/dL (80-110); HEMOLYSIS < 15 (0-50); Sodium 137 mmol/L (137-145); Total Protein 6.8 g/dL (6.3-8.2)
[2023-05-30 13:52] LABS: Free T4, Direct Thyroxine 1.08 ng/dL (0.78-2.19)
[2023-05-30 14:06] LABS: Thyroid Stimulating Hormone 1.59 uIU/mL (0.47-4.68)
== END ==
PROVIDERS: Family Provider Internal Medicine; PCP Internal Medicine; Referring Provider Internal Medicine; Visit Provider Internal Medicine
DX: E78.2 Mixed hyperlipidemia (principal); I10 Essential (primary) hypertension; E03.9 Hypothyroidism, unspecified; D64.9 Anemia, unspecified
CPT/HCPCS: 36415; 80053; 84439; 84443; 85025

== ENCOUNTER 2023-08-31 11:34 | Emergency (ER) | payer MEDICARE, SELFPAY ==
[2023-08-31] VITALS (13 sets, daily range): BP systolic 168–212; BP diastolic 86–107; PULSE 76–91; RESP 16–33; TEMP 37.4; O2SAT 90–98; BMI 33.2
--- NOTE | 2023-08-31 12:10 | PC.NURSE ---
Pt reports intermittent SOB/dizziness while repositioning today. HTN upon arrival and did not take her daily medications. She is unsure if she is always in afib, takes eliquis for afib. Pt's daughter Domo at bedside.
[2023-08-31] MEDS: OXYMETAZOLINE NASAL SPRAY 30 ML 2 SPRAYS NASAL (12:14)
--- NOTE | 2023-08-31 12:18 | ED_ITS ---
HPI - Epistaxis General Chief complaint: Nasal Problem Stated complaint: severe nose bleed/clots/ on blood thinners Time Seen by Provider: 08/31/23 12:05 Source: patient Mode of arrival: Wheelchair History of Present Illness HPI Narrative: Patient is a 83-year-old female history of atrial fibrillation on Eliquis presenting with epistaxis. She reports that started on 5:00 a.m. it has been pretty constant. She tried Afrin at home but not try nasal clip. Was coming out her eye she is vomited up some blood but now with a nasal clamp does seem to be a bit better. It was coming out her eyes as well. She was recently treated for otitis on antibiotics. She also has some bloody tears out of her right Related Data Home Medications Medication Instructions Recorded Confirmed apixaban 5 mg tablet 5 mg PO BID #60 tabs 07/16/18 08/25/23 Prevagen 1 tab PO DAILY Memory 08/27/21 08/25/23 docusate sodium 100 mg capsule 100 mg PO DAILY 07/04/22 08/25/23 betamethasone dipropionate 0.05 % 1 applic topical DAILY PRN 08/07/23 08/25/23 topical ointment Previous Rx's Medication Instructions Recorded Disabled Parking Permit #1 ea 04/23/21 atenolol 50 mg tablet 50 mg PO BID #180 tabs 09/14/22 hydrochlorothiazide 25 mg tablet 25 mg PO Q DAY #90 tabs 09/14/22 clindamycin phosphate 1 % lotion 1 applic topical BID PRN Rosacea 03/06/23 #60 mL oxybutynin chloride 10 mg 10 mg PO DAILY #90 tabs 05/05/23 tablet,extended release 24 hr duloxetine 30 mg capsule,delayed 30 mg PO DAILY #90 caps 08/07/23 release hydrocodone 7.5 mg-acetaminophen 1 - 2 tab PO Q4-6H PRN pain #250 08/07/23 325 mg tablet tabs hydrocodone 7.5 mg-acetaminophen 1 - 2 tab PO Q4-6H PRN pain #250 08/07/23 325 mg tablet tabs hydrocodone 7.5 mg-acetaminophen 1 - 2 tab PO Q4-6H PRN pain #250 08/07/23 325 mg tablet tabs doxycycline hyclate 100 mg tablet 100 mg PO BID 10 days #20 tabs 08/25/23 Allergies Allergy/AdvReac Type Severity Reaction Status Date / Time Sulfa (Sulfonamide Allergy Unknown Verified 08/25/23 09:20 Antibiotics) gabapentin AdvReac Dry Mucus Verified 08/25/23 09:20 Membranes Patient History Medical History (Updated 08/31/23 @ 15:59 by Jamee Wells DO) Uncomplicated opioid dependence Urinary incontinence 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 Lumbosacral spondylosis with radiculopathy Spinal stenosis of lumbar region at multiple levels Chronic atrial fibrillation Obesity (05/10/05) Chronic obstructive pulmonary disease (05/29/17) Dorsalgia (01/20/17) Depression (06/13/14) Acquired hypothyroidism (11/08/12) Gastroesophageal reflux disease without esophagitis Osteoarthritis (11/25/10) Essential hypertension Mixed hyperlipidemia (05/10/05) Surgical History (Updated 11/21/22 @ 16:00 by Phillip Valerio MD) Hx of total hip arthroplasty S/P lumbar spinal fusion Social History marital status: number of children: 6 household members: family lives independently: Yes caregiver/support person: No housing: house pets and animals: Yes education level: college occupational status: other 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 leisure activities: reading and other Smoking Status: Former smoker Tobacco: How many years used: 0 quit status: quit date established second hand exposure: Yes alcohol intake: current substance use type: does not use Smoking Status: Former smoker alcohol intake frequency: holidays/special occasions only Substance Use Type: does not use Exam Initial Vital Signs Initial Vital Signs: Vital Signs Temperature 99.4 F 08/31/23 11:40 Pulse Rate 79 08/31/23 11:40 Respiratory Rate 18 08/31/23 11:40 Blood Pressure 183/86 H 08/31/23 11:40 Pulse Oximetry 98 08/31/23 11:40 Oxygen Delivery Method Room Air 08/31/23 11:40 GENERAL: 83-year-old female appears mild distress HEAD: Atraumatic. Normocephalic. EYES: Pupils equal round and reactive. Extraocular motions intact. No scleral icterus. No injection or drainage. ENT: Slight epistaxis more out of right side than left side. Significant clot burden on the right side. Slight bleeding posterior but not heavy or extensor. She is managing her own secretions without any sort of distress CARDIOVASCULAR: Regular rate and rhythm without murmurs, gallops, or rubs. RESPIRATORY: Clear to auscultation. Breath sounds equal bilaterally. No wheezes, rales, or rhonchi. EXTREMITIES: No edema or joint tenderness. NEURO: AOx3. SKIN: No rash or erythema of visible areas Course Orders Ordered: Discontinued Medications Oxymetazoline HCl (Oxymetazoline Nasal [place] 30 Ml) 2 sprays NASAL NOW ONE Stop: 08/31/23 12:06 Last Admin: 08/31/23 12:14 Dose: 2 sprays Documented By: WILSON Tranexamic Acid (Tranexamic Acid 1,000 Mg Vial) 1,000 mg TOP NOW ONE Stop: 08/31/23 16:05 Last Admin: 08/31/23 16:15 Dose: 1,000 mg Documented By: WILSON Vital Signs Vital signs: Vital Signs - 8 hr 08/31/23 11:40 08/31/23 11:51 08/31/23 11:52 Temperature 99.4 F Pulse Rate 79 89 Respiratory Rate 18 Blood Pressure 183/86 H 212/107 H Pulse Oximetry 98 94 Oxygen Delivery Method Room Air 08/31/23 11:52 08/31/23 12:00 08/31/23 12:29 Temperature Pulse Rate 86 83 76 Respiratory Rate 20 26 H Blood Pressure Pulse Oximetry 92 97 Oxygen Delivery Method Room Air 08/31/23 12:30 08/31/23 12:30 08/31/23 13:51 Temperature Pulse Rate 77 80 Respiratory Rate 22 Blood Pressure 168/103 H Pulse Oximetry 93 93 Oxygen Delivery Method Room Air 08/31/23 14:00 08/31/23 14:30 08/31/23 15:20 Temperature Pulse Rate 78 81 91 H Respiratory Rate 33 H Blood Pressure Pulse Oximetry 92 90 L Oxygen Delivery Method 08/31/23 15:21 08/31/23 15:21 08/31/23 15:30 Temperature Pulse Rate 87 83 Respiratory Rate 26 H 27 H Blood Pressure 171/102 H Pulse Oximetry 92 92 Oxygen Delivery Method MDM - Epistaxis MDM Narrative Medical decision making narrative: Patient has epistaxis on Eliquis she does have significant cooperative and she was given Afrin and a nasal clamp did help but she was very uncomfortable with the clot. We attempted to get it out with a blowing and suctioning but clot remained unable to get it all out and she continued to be in distress and anxious about it. It then of course started bleeding a little bit again. No heavy bleeding bleeding was easily controlled with clamp. We tried rhino rocket she did not tolerate a posterior rhino rocket. However she did tolerate an anterior rhino rocket with TXA on it. Daughter very concerned that she is dehydrated she has not had anything to eat or drink since 5:00 a.m.. She is given applesauce here she actually was able to swallow most of it she did throw up a little bit or spit back out. Daughter is concerned because she has had an otitis infection on August 19. Patient reports that the swelling in her neck and glands has gone away completely she feels like her ear is better she has a like that problem. At this time I do not see need a reason to do blood work. She is able to eat and drink. Lots of education discussion about nosebleeds. Anterior rhino rocket is left. Patient is given a syringe instructed to take it out tomorrow. They are also updated on ENT recommendations. 1600 Dr. Burns on-call ENT updated patient's symptoms with persistent irritating clot burden. He recommends leaving the clot and doing warm saline lavages in a couple days to help loose in the clots. Discharge Plan Departure Patient Disposition: Home Clinical Impression: Anterior epistaxis Instructions: DI for Nosebleed Activity Restrictions/Additional Instructions: *You have been diagnosed with nosebleed *What to do: At this time I do recommend that you use Afrin nose clamp and ice to help stop that bleeding. The clot will stay there however after a couple of days the ear nose and throat doctor recommended warm saline lavages and flushes to help loosen up that clot and to get it out. Increase fluid intake as tolerated. May eat and drink as normal If your bleeding continues you will need intervention such as packing which you are refusing today *Continue to take medications as directed Continue Eliquis as prescribed *Follow up with your primary care provider in 2-3 days or call [phone] *Return to ER if you should have increased bleeding, [or] any new, worsening or concerning symptoms Prescriptions: No Action atenolol 50 mg tablet 50 mg PO BID Qty: 180 3RF hydrochlorothiazide 25 mg tablet 25 mg PO Q DAY Qty: 90 3RF clindamycin phosphate 1 % lotion 1 applic topical BID PRN (Reason: Rosacea) Qty: 60 3RF oxybutynin chloride 10 mg tablet extended release 24hr 10 mg PO DAILY Qty: 90 3RF Eliquis 5 mg tablet 5 mg PO BID Qty: 60 Prevagen 1 tab PO DAILY doxycycline hyclate 100 mg tablet 100 mg PO BID 10 Days Qty: 20 0RF (DME) Disabled Parking Permit See Rx Instructions .ROUTE .MEDSUPPLY Qty: 1 0RF Rx Instructions: Patient qualifies for disabled parking as per the attached form. hydrocodone-acetaminophen 7.5-325 mg tablet 1 - 2 tab PO Q4-6H MDD 9 tabs PRN (Reason: pain) Qty: 250 0RF hydrocodone-acetaminophen 7.5-325 mg tablet 1 - 2 tab PO Q4-6H MDD 9 tabs PRN (Reason: pain) Qty: 250 0RF hydrocodone-acetaminophen 7.5-325 mg tablet 1 - 2 tab PO Q4-6H MDD 9 tabs PRN (Reason: pain) Qty: 250 0RF betamethasone dipropionate 0.05 % ointment 1 applic topical DAILY PRN duloxetine 30 mg capsule,delayed release(DR/EC) 30 mg PO DAILY Qty: 90 3RF docusate sodium 100 mg capsule 100 mg PO DAILY Referrals: Phillip Valerio MD [Primary Care Provider] - Stand Alone Forms: Patient Portal/API
[2023-08-31] MEDS: TRANEXAMIC ACID 1,000 MG VIAL 1000 MG TOP (16:15)
--- NOTE | 2023-08-31 16:15 | PC.NURSE ---
Pt laying in bed awake, states i'm not sleeping. She reports the medication helped with her pain, but she is unable to sleep and wants medication to sleep. Provider notified.
--- NOTE | 2023-08-31 16:17 | PC.NURSE ---
Pt attempted to swallow some apple sauce, able to swallow but had some bloody mucous with applesauce that she spit up afterwards. Pt's daughter expresses concern for swallowing her home medications.
== END 2023-08-31 16:50 | disposition home or self-care (01) ==
PROVIDERS: Emergency Provider Emergency Medicine; Family Provider Internal Medicine; PCP Internal Medicine
DX: R04.0 Epistaxis (principal); Z79.01 Long term (current) use of anticoagulants
CPT/HCPCS: 30901; 99282; 99283

== ENCOUNTER → 2023-10-19 08:13 | Outpatient (CLI) | payer MEDICARE, SELFPAY ==
[2023-10-19 10:13] LABS: Hematocrit 38.2 % (36-46); Hemoglobin 13.1 g/dL (12.0-16.0); Mean Corpuscular HGB Conc 34.3 % (30-36); Mean Corpuscular Hemoglobin 33.9 PG (26-34); Mean Corpuscular Volume 98.7 fL (80-100); Platelet Count 214 X10^3/uL (150-400); Red Blood Cell Count 3.87 X10^6/uL (4.0-5.2); Red Cell Distribution Width 14.3 % (11.6-14.8); White Blood Cell Count 4.1 X10^3/uL (4.5-11.0)
[2023-10-19 10:36] LABS: BUN Creatinine Ratio 13.8 (6-22); Blood Urea Nitrogen 11 mg/dL (7-17); Calcium 8.9 mg/dL (8.4-10.2); Carbon Dioxide 33 mmol/L (22-32); Chloride 95 mmol/L (98-107); Cholesterol 171 mg/dL (140-199); Estimated Glomerular Filt Rate > 60 mL/min (>60); Glucose 84 mg/dL (80-110); HDL Cholesterol 52 mg/dL (40-60); HEMOLYSIS < 15 (0-50); LDL Cholesterol Calculated 97 mg/dL (<100); Potassium 3.4 mmol/L (3.4-5.1); Sodium 134 mmol/L (137-145); Triglycerides 109 mg/dL (35-150)
== END ==
PROVIDERS: Family Provider Internal Medicine; PCP Internal Medicine; Referring Provider Internal Medicine Cardiovascular Disease; Visit Provider Internal Medicine Cardiovascular Disease
DX: I10 Essential (primary) hypertension (principal); E78.5 Hyperlipidemia, unspecified
CPT/HCPCS: 36415; 80048; 80061; 85027

== ENCOUNTER → 2023-11-17 12:28 | Outpatient (CLI) | payer MEDICARE, SELFPAY ==
--- NOTE | 2023-11-17 12:30 | DI.RAD.S_ITS ---
PROCEDURE: XR HIP W PEL IF DONE LT 2V COMPARISON: None. INDICATIONS: l hip pain FINDINGS: There are bilateral total hip arthroplasties. The femoral components appear slightly off center and they acetabular components. Air density is seen overlying the right component. There is there is non common finding with prosthetic joints. No soft tissue abnormalities are seen. No acute fractures. Surgical hardware noted in the lumbar spine from prior posterior fusion. IMPRESSION: Asymmetry in the acetabular and femoral components of the prostheses. Recommendation: Comparison with prior studies would be beneficial. Dictated by: Cayetano Read M.D. on 11/17/2023 at 16:29 Approved by: Cayetano Read M.D. on 11/17/2023 at 16:33
== END ==
PROVIDERS: Family Provider Internal Medicine; PCP Internal Medicine; Referring Provider Internal Medicine; Visit Provider Internal Medicine
DX: M25.552 Pain in left hip (principal); Z96.643 Presence of artificial hip joint, bilateral; Z98.1 Arthrodesis status
CPT/HCPCS: 73502

== ENCOUNTER 2024-03-05 14:32 | Outpatient (CLI) | payer MEDICARE, SELFPAY ==
[2024-03-05] VITALS (9 sets, daily range): BP systolic 146–183; BP diastolic 69–98; PULSE 76–94; RESP 16–23; TEMP 36.6; O2SAT 90–99
--- NOTE | 2024-03-05 14:35 | DI.RAD.S_ITS ---
PROCEDURE: PAIN L/S TRANSFORAMINAL INJECT INDICATIONS: Right L3/4 TFESI COMPARISON: [facility], , PAIN L/S TRANSFORAMINAL INJECT, 08/16/2022, 13:28. FINDINGS: Fluoroscopic spot filming was performed to verify placement of spinal needles at the right L3-L4 level(s), as labeled on the films. Appropriate location(s) of the needle tip(s) was confirmed by injection of iodinated contrast. Lumbar fusion hardware in place. IMPRESSION: Right L3-L4 transforaminal injection, please see operative note for full details. Dictated by: Garrett Mccauley M.D. on 03/05/2024 at 20:36 Approved by: Garrett Mccauley M.D. on 03/05/2024 at 20:36
[2024-03-05] MEDS: MIDAZOLAM 2 MG/2 ML VIAL IV (16:13)
[2024-03-05] MEDS: BUPIVACAINE 0.25% (PF) VIAL 2 ML INJ (16:17)
[2024-03-05] MEDS: iopamidoL 15 ML VIAL 3 ML INJ (16:18)
[2024-03-05] MEDS: BETAMETHASONE 30 MG/5 ML MDV 12 MG INJ (16:18)
[2024-03-05] MEDS: DEXAMETHASONE 10 MG/ML VIAL INJ (16:18)
--- NOTE | 2024-03-05 16:36 | P.PCN_ITS ---
Date/Time/Diagnoses Date of procedure: 03/05/24 Time of procedure: 16:36 Pre-procedure diagnosis: 1. FORAMINAL STENOSIS WITH LE SYMPTOMS Post-procedure diagnosis: same Procedure Notes Procedure: 1. FLUOROSCOPICALLY GUIDED CONTRAST CONTROLLED TRANSFORAMINAL EPIDURAL STEROID INJECTION - RIGHT L3/4 TFESI Indications: Ana is referred by Dr. Valerio for treatment of Foraminal Stenosis with right LE Symptoms Physician: Herrera Mcintosh Total Fluoroscopy time (seconds): 8 Total sedation minutes: 14 Complications: none Procedure in detail & Post-procedure care: FINDINGS Foraminal Nerve Root Compression secondary to disc disease and facet hypertrophy DESCRIPTION OF PROCEDURE Following review of allergy and review of potential side effects and complications, including, but not necessarily limited to, infection, allergic reaction, local tissue breakdown, stroke, temporary or permanent nerve injury, paralysis, and possible , the patient indicated that the patient understood and agreed to proceed. An informed consent document was signed by the patient, witnessed by a nurse, and placed in the patient's chart. Additionally, other treatment options including medications, modalities, and physical therapy were reviewed with the patient. After review of previous anaesthesic history and IV conscious sedation the patient was deemed safe to proceed with today?s procedure with IV conscious sedation as ASA class II designation. Safety time-out was performed to confirm patient ID, procedure to be performed and site of procedure. IV sedation was accomplished with a combination of 2mg of Versed was administered by the RN after DO order, titrated to patient comfort during the course of the procedure while the patient remained responsive to all verbal commands In the prone position following sterile prep and drape of the lumbar region, the right L3/4 posterior neuroforamen was identified fluoroscopically. The skin was anesthetized via a 25-gauge 1.5-inch needle with 1% lidocaine solution. At this point, a 25-gauge 3.5-inch spinal needle was atraumatically introduced and advanced under fluoroscopic guidance through the posterior right L3/4 neuroforamen to approximately the anterior aspect of the canal. Depth was confirmed on lateral view. Following negative aspiration, injection of approximately 1.5 cc of Isovue 200 under live fluoroscopy in the AP view conf irmed excellent flow along the nerve root, into the epidural space without vascular or intrathecal uptake observed Radiological data, including multiple fluoroscopic views of the lumbosacral spine, reveal a spinal needle at the right L3/4 posterior neuroforamen. Subsequent views show flow of contrast material flowing superiorly and inferiorly along the nerve root confirming epidural flow. Subsequently, a test dose of 1.5 cc of 1% lidocaine solution was administered and patient was observed for two minutes for signs or symptoms of complications, including abdominal pain, shortness of breath, bilateral upper or lower extremity weakness, nausea and vomiting, prior to steroid injection. At this point, a total of 3cc or 10mg of dexamethasone and 12mg of betamethasone was injected without incident. The patient tolerated the procedure well without signs or symptoms of complications prior to transfer to the recovery area continued monitoring without incident. The patient was then transferred to the recovery area where they were observed for an appropriate time after the injection. The patient reported a VAS score of 7 prior to the procedure and a post-procedure VAS of 0. POST OP INSTRUCTIONS The patient was provided a Pain Log to continue to record their response to the target-specific procedure prior to follow-up visit with their referring ph ysician. Additionally, specific post-injection care instructions and a contact number to our office were provided if concerns arise regarding possible complications associated with the procedure are suspected.
== END 2024-03-05 16:55 | disposition home or self-care (01) ==
PROVIDERS: Family Provider Internal Medicine; PCP Internal Medicine; Referring Provider Physical Medicine & Rehabilitation; Visit Provider Physical Medicine & Rehabilitation
DX: M48.061 Spinal stenosis, lumbar region without neurogenic claudication (principal); M51.16 Intervertebral disc disorders with radiculopathy, lumbar region; M47.26 Other spondylosis with radiculopathy, lumbar region
CPT/HCPCS: 64483; 99152; J0702; J1100; J2250; J3490

== ENCOUNTER 2024-03-18 09:00 | Emergency (ER) | payer MEDICARE, SELFPAY ==
[2024-03-18] VITALS (29 sets, daily range): BP systolic 97–188; BP diastolic 51–109; PULSE 57–98; RESP 18; TEMP 37.2; O2SAT 91–99; BMI 29.2
--- NOTE | 2024-03-18 09:05 | DI.RAD.S_ITS ---
PROCEDURE: XR HIP W PEL IF DONE LT 2V INDICATIONS: hip pain after fall TECHNIQUE: AP pelvis with cross-table left hip. COMPARISON: [facility], CR, XR HIP W PEL IF DONE LT 2V, 11/17/2023, 12:45. FINDINGS: Bones: Bilateral total hip arthroplasty and partially visualized transpedicular isaiah and screw fixation of the lumbar spine. No fractures or dislocations. Pelvic ring appears intact. No suspicious bony lesions. Unchanged degeneration with displaced fragment of the left greater trochanter. Soft tissues: The visualized bowel gas pattern is normal. No suspicious soft tissue calcifications. IMPRESSION: No acute hardware or osseous abnormality. Dictated by: Oscar Pal M.D. on 03/18/2024 at 10:42 Approved by: Oscar Pal M.D. on 03/18/2024 at 10:43
--- NOTE | 2024-03-18 09:12 | ED.FALL ---
HPI - Fall <Kj Marsh, DO - Last Filed: 03/20/24 18:15> General Chief Complaint: Fall Stated Complaint: GLF Time Seen by Provider: 03/18/24 09:05 Source: patient and EMS Mode of arrival: EMS History of Present Illness HPI Narrative: Patient was an 83-year-old female. Is on anticoagulation. States she was at her normal state of health last evening. Was lying on the bed playing with her 2 cats. She states that she must have rolled off the bed while playing with the cat and landed on her left hip. She thinks she hit her head on the bedside table. No loss of consciousness but does not specifically remember falling. Has had left thigh/hip pain since the fall. Has been unable to get up. She laid on the ground all evening. She states her daughter lives in an apartment down stairs. Patient states this morning she was banging on the floor and yelling which caught the attention of her daughter who came up to check on her. She received ketamine and fentanyl by EMS prior to arrival. She arrived not on a backboard not in a cervical collar. Cervical collar was placed by triage secondary to discomfort with palpation. Patient reports no other extremity injuries. Related Data Home Medications Medication Instructions Recorded Confirmed apixaban 5 mg tablet 5 mg PO BID #60 tabs 07/16/18 02/05/24 Prevagen 1 tab PO DAILY Memory 08/27/21 02/05/24 docusate sodium 100 mg capsule 100 mg PO DAILY 07/04/22 02/05/24 betamethasone dipropionate 0.05 % 1 applic topical DAILY PRN 08/07/23 02/05/24 topical ointment atenolol 25 mg tablet 25 mg PO BID 11/16/23 02/05/24 hydrochlorothiazide 25 mg tablet 12.5 mg PO Q DAY 11/16/23 02/05/24 lovastatin 40 mg tablet 40 mg PO QPM 11/16/23 02/05/24 Previous Rx's Medication Instructions Recorded Disabled Parking Permit #1 ea 04/23/21 clindamycin phosphate 1 % lotion 1 applic topical BID PRN Rosacea 03/06/23 #60 mL oxybutynin chloride 10 mg 10 mg PO DAILY #90 tabs 05/05/23 tablet,extended release 24 hr duloxetine 30 mg capsule,delayed 30 mg PO DAILY #90 caps 08/07/23 release bupropion HCl 150 mg 24 hr tablet, 150 mg PO QAM #90 tabs 01/01/24 extended release amoxicillin 500 mg-potassium 1 tab PO BID #28 tabs 02/05/24 clavulanate 125 mg tablet hydrocodone 7.5 mg-acetaminophen 1 - 2 tab PO Q4-6H PRN pain #250 02/05/24 325 mg tablet tabs hydrocodone 7.5 mg-acetaminophen 1 - 2 tab PO Q4-6H PRN pain #250 02/05/24 325 mg tablet tabs hydrocodone 7.5 mg-acetaminophen 1 - 2 tab PO Q4-6H PRN pain #250 02/05/24 325 mg tablet tabs diazepam 10 mg tablet (Valium) 10 mg PO .COMPLEX #7 tabs 03/04/24 Allergies Allergy/AdvReac Type Severity Reaction Status Date / Time Sulfa (Sulfonamide Allergy Unknown Verified 02/05/24 13:47 Antibiotics) gabapentin AdvReac Dry Mucus Verified 02/05/24 13:47 Membranes Review of Systems <Kj Marsh DO - Last Filed: 03/20/24 18:15> Review of Systems ROS Unobtainable: All systems reviewed & are unremarkable except as noted in HPI and below Patient History <Kj Marsh DO - Last Filed: 03/20/24 18:15> Medical History Uncomplicated opioid dependence Urinary incontinence 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 MCC current use of anticoagulant Lumbosacral spondylosis with radiculopathy Spinal stenosis of lumbar region at multiple levels Chronic atrial fibrillation Obesity (05/10/05) Chronic obstructive pulmonary disease (05/29/17) Dorsalgia (01/20/17) Depression (06/13/14) Acquired hypothyroidism (11/08/12) Gastroesophageal reflux disease without esophagitis Osteoarthritis (11/25/10) Essential hypertension Mixed hyperlipidemia (05/10/05) Surgical History Hx of total hip arthroplasty S/P lumbar spinal fusion Social History marital status: number of children: 6 household members: family lives independently: Yes caregiver/support person: No housing: house pets and animals: Yes education level: college occupational status: other 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: [employer] leisure activities: reading and other Smoking Status: Former smoker Tobacco: How many years used: 0 quit status: quit date established second hand exposure: Yes alcohol intake: current substance use type: does not use Smoking Status: Former smoker alcohol intake frequency: holidays/special occasions only Exam <Kj Marsh DO - Last Filed: 03/20/24 18:15> Initial Vital Signs Initial Vital Signs: Vital Signs Temperature 99.0 F 03/18/24 09:05 Pulse Rate 87 03/18/24 09:05 Respiratory Rate 18 03/18/24 09:05 Blood Pressure 178/100 H 03/18/24 09:05 Pulse Oximetry 99 03/18/24 09:05 Oxygen Delivery Method Room Air 03/18/24 09:05 Const General: cooperative and comfortable HENMT HENMT Other: Dry mucous membranes Resp Effort & Inspection: normal respiratory effort Cardio Rate: regular rate GI Inspection: normal to inspection Back/Spine/Pelvis Cervical Spine: cervical spinal tenderness Neuro General: patient alert, patient awake, patient oriented x3 and moves all extremities Cognition: normal cognition Speech: speech normal Extrem Other: Discomfort to palpation in the left hemipelvis in the left femur. Right lower extremity bilateral upper extremities unremarkable. <Jeremie Rene MD - Last Filed: 03/19/24 15:37> Initial Vital Signs Initial Vital Signs: Vital Signs Temperature 99.0 F 03/18/24 09:05 Pulse Rate 87 03/18/24 09:05 Respiratory Rate 18 03/18/24 09:05 Blood Pressure 178/100 H 03/18/24 09:05 Pulse Oximetry 99 03/18/24 09:05 Oxygen Delivery Method Room Air 03/18/24 09:05 <Elle López MD - Last Filed: 03/19/24 13:44> Initial Vital Signs Initial Vital Signs: Vital Signs Temperature 99.0 F 03/18/24 09:05 Pulse Rate 87 03/18/24 09:05 Respiratory Rate 18 03/18/24 09:05 Blood Pressure 178/100 H 03/18/24 09:05 Pulse Oximetry 99 03/18/24 09:05 Oxygen Delivery Method Room Air 03/18/24 09:05 Course <Kj Marsh DO - Last Filed: 03/20/24 18:15> Orders Ordered: Discontinued Medications Hydrocodone Bitart/Acetaminophen (Hydrocodone/Acet 5/325 Tablet) 1 tab PO NOW ONE Stop: 03/18/24 10:30 Last Admin: 03/18/24 10:40 Dose: 1 tab Documented By: KELLY Hydrocodone Bitart/Acetaminophen (Hydrocodone/Acet 5/325 Tablet) 1 tab PO NOW ONE Stop: 03/18/24 19:10 Last Admin: 03/18/24 20:10 Dose: 1 tab Documented By: Hydrocodone Bitart/Acetaminophen (Hydrocodone/Acet 5/325 Tablet) 1 tab PO Q6HR PRN PRN Reason: Pain, Moderate (4-6) Last Admin: 03/19/24 13:30 Dose: 1 tab Documented By: Admin: 03/19/24 08:09 Dose: 1 tab Documented By: Admin: 03/19/24 01:40 Dose: 1 tab Documented By: Apixaban (Apixaban 5 Mg Tablet) 5 mg PO NOW ONE Stop: 03/18/24 18:15 Last Admin: 03/18/24 18:43 Dose: 5 mg Documented By: KELLY Sodium Chloride (Normal Saline 0.9%) 500 mls @ 1,000 mls/hr IV BOLUS ONE Stop: 03/18/24 09:40 Last Infusion: 03/18/24 12:15 Dose: Infused Documented By: Infusion: 03/18/24 10:01 Dose: 1,000 mls/hr Documented By: Infusion: 03/18/24 09:21 Dose: 0 mls/hr Documented By: Admin: 03/18/24 09:20 Dose: 1,000 mls/hr Documented By: WILSON Ketorolac Tromethamine (Ketorolac 30 Mg/Ml Vial) 15 mg IV NOW ONE Stop: 03/18/24 15:46 Last Admin: 03/18/24 15:57 Dose: 15 mg Documented By: KELLY Morphine Sulfate (Morphine 4 Mg/Ml Inj) 4 mg IV NOW ONE Stop: 03/18/24 12:49 Last Admin: 03/18/24 12:54 Dose: 4 mg Documented By: KELLY Vital Signs Vital signs: Vital Signs - 8 hr 03/19/24 08:08 03/19/24 08:09 03/19/24 08:09 Pulse Rate 85 Blood Pressure 171/96 H Pulse Oximetry 95 92 03/19/24 08:30 03/19/24 08:31 03/19/24 08:31 Pulse Rate 87 90 Blood Pressure 116/77 Pulse Oximetry 93 94 03/19/24 11:35 03/19/24 11:35 Pulse Rate 83 Blood Pressure 112/65 Pulse Oximetry 97 <Jeremie Rene MD - Last Filed: 03/19/24 15:37> Orders Ordered: Discontinued Medications Hydrocodone Bitart/Acetaminophen (Hydrocodone/Acet 5/325 Tablet) 1 tab PO NOW ONE Stop: 03/18/24 10:30 Last Admin: 03/18/24 10:40 Dose: 1 tab Documented By: KELLY Hydrocodone Bitart/Acetaminophen (Hydrocodone/Acet 5/325 Tablet) 1 tab PO NOW ONE Stop: 03/18/24 19:10 Last Admin: 03/18/24 20:10 Dose: 1 tab Documented By: Hydrocodone Bitart/Acetaminophen (Hydrocodone/Acet 5/325 Tablet) 1 tab PO Q6HR PRN PRN Reason: Pain, Moderate (4-6) Last Admin: 03/19/24 13:30 Dose: 1 tab Documented By: Admin: 03/19/24 08:09 Dose: 1 tab Documented By: Admin: 03/19/24 01:40 Dose: 1 tab Documented By: Apixaban (Apixaban 5 Mg Tablet) 5 mg PO NOW ONE Stop: 03/18/24 18:15 Last Admin: 03/18/24 18:43 Dose: 5 mg Documented By: KELLY Sodium Chloride (Normal Saline 0.9%) 500 mls @ 1,000 mls/hr IV BOLUS ONE Stop: 03/18/24 09:40 Last Infusion: 03/18/24 12:15 Dose: Infused Documented By: Infusion: 03/18/24 10:01 Dose: 1,000 mls/hr Documented By: Infusion: 03/18/24 09:21 Dose: 0 mls/hr Documented By: Admin: 03/18/24 09:20 Dose: 1,000 mls/hr Documented By: WILSON Ketorolac Tromethamine (Ketorolac 30 Mg/Ml Vial) 15 mg IV NOW ONE Stop: 03/18/24 15:46 Last Admin: 03/18/24 15:57 Dose: 15 mg Documented By: KELLY Morphine Sulfate (Morphine 4 Mg/Ml Inj) 4 mg IV NOW ONE Stop: 03/18/24 12:49 Last Admin: 03/18/24 12:54 Dose: 4 mg Documented By: KELLY Vital Signs Vital signs: Vital Signs - 8 hr 03/19/24 08:08 03/19/24 08:09 03/19/24 08:09 Pulse Rate 85 Blood Pressure 171/96 H Pulse Oximetry 95 92 03/19/24 08:30 03/19/24 08:31 03/19/24 08:31 Pulse Rate 87 90 Blood Pressure 116/77 Pulse Oximetry 93 94 03/19/24 11:35 03/19/24 11:35 Pulse Rate 83 Blood Pressure 112/65 Pulse Oximetry 97 <Elle López MD - Last Filed: 03/19/24 13:44> Orders Ordered: Discontinued Medications Hydrocodone Bitart/Acetaminophen (Hydrocodone/Acet 5/325 Tablet) 1 tab PO NOW ONE Stop: 03/18/24 10:30 Last Admin: 03/18/24 10:40 Dose: 1 tab Documented By: KELLY Hydrocodone Bitart/Acetaminophen (Hydrocodone/Acet 5/325 Tablet) 1 tab PO NOW ONE Stop: 03/18/24 19:10 Last Admin: 03/18/24 20:10 Dose: 1 tab Documented By: Hydrocodone Bitart/Acetaminophen (Hydrocodone/Acet 5/325 Tablet) 1 tab PO Q6HR PRN PRN Reason: Pain, Moderate (4-6) Last Admin: 03/19/24 13:30 Dose: 1 tab Documented By: Admin: 03/19/24 08:09 Dose: 1 tab Documented By: Admin: 03/19/24 01:40 Dose: 1 tab Documented By: Apixaban (Apixaban 5 Mg Tablet) 5 mg PO NOW ONE Stop: 03/18/24 18:15 Last Admin: 03/18/24 18:43 Dose: 5 mg Documented By: KELLY Sodium Chloride (Normal Saline 0.9%) 500 mls @ 1,000 mls/hr IV BOLUS ONE Stop: 03/18/24 09:40 Last Infusion: 03/18/24 12:15 Dose: Infused Documented By: Infusion: 03/18/24 10:01 Dose: 1,000 mls/hr Documented By: Infusion: 03/18/24 09:21 Dose: 0 mls/hr Documented By: Admin: 03/18/24 09:20 Dose: 1,000 mls/hr Documented By: WILSON Ketorolac Tromethamine (Ketorolac 30 Mg/Ml Vial) 15 mg IV NOW ONE Stop: 03/18/24 15:46 Last Admin: 03/18/24 15:57 Dose: 15 mg Documented By: KELLY Morphine Sulfate (Morphine 4 Mg/Ml Inj) 4 mg IV NOW ONE Stop: 03/18/24 12:49 Last Admin: 03/18/24 12:54 Dose: 4 mg Documented By: KELLY Vital Signs Vital signs: Vital Signs - 8 hr 03/19/24 08:08 03/19/24 08:09 03/19/24 08:09 Pulse Rate 85 Blood Pressure 171/96 H Pulse Oximetry 95 92 03/19/24 08:30 03/19/24 08:31 03/19/24 08:31 Pulse Rate 87 90 Blood Pressure 116/77 Pulse Oximetry 93 94 03/19/24 11:35 03/19/24 11:35 Pulse Rate 83 Blood Pressure 112/65 Pulse Oximetry 97 MDM - Fall <Kj Marsh DO - Last Filed: 03/20/24 18:15> Lab Data Attestation: I reviewed the patient's lab results. 03/18/24 09:05 03/18/24 09:05 Labs: Lab Results 03/18/24 Range/Units 09:05 WBC 12.6 H (4.5-11.0) X10^3/uL RBC 4.49 (4.0-5.2) X10^6/uL Hgb 15.0 (12.0-16.0) g/dL Hct 45.1 (36-46) % MCV 100.5 H (80-100) fL MCH 33.5 (26-34) PG MCHC 33.3 (30-36) % RDW 13.5 (11.6-14.8) % Plt Count 214 (150-400) X10^3/uL Neut % (Auto) 87.3 H (50-75) % Lymph % (Auto) 5.9 L (25-40) % Mercer % (Auto) 6.4 (3-14) % Eos % (Auto) 0.1 L (2-4) % Baso % (Auto) 0.3 (0-2) % Neut # (Auto) 01134 H (0734-6331) /uL Lymph # (Auto) 700 L (6282-9588) /uL Mercer # (Auto) 800 (0-900) /uL Eos # (Auto) 0 (0-450) /uL Baso # (Auto) 0 (0-100) /uL Sodium 132 L (137-145) mmol/L Potassium 3.4 (3.4-5.1) mmol/L Chloride 94 L (98-107) mmol/L Carbon Dioxide 31 (22-32) mmol/L BUN 19 H (7-17) mg/dL Creatinine 0.66 (0.52-1.04) mg/dL Estimated GFR > 60 (>60) mL/min BUN/Creatinine Ratio 28.8 H (6-22) Glucose 108 (80-110) mg/dL Calcium 9.3 (8.4-10.2) mg/dL Total Creatine Kinase 126 (30-135) U/L Imaging Data CT - cervical spine: Radiologist's Impression: PROCEDURE: CT CERVICAL SPINE WO CON INDICATIONS: fall with neck pain TECHNIQUE: Noncontrast 3 mm thick sections acquired from the skull base to the T4 level. Sagittal and coronal reformats were then constructed. For radiation dose reduction, the following was used: automated exposure control, adjustment of mA and/or kV according to patient size. COMPARISON: None. FINDINGS: Image quality: Excellent. Bones: No fractures or dislocations. Visualized superior ribs are intact. Severe cervical spondylosis. Multilevel disc height loss and uncovertebral joint hypertrophy. Multilevel bilateral bony foraminal narrowing. Soft tissues: Prevertebral soft tissues are normal in thickness. No paravertebral hematomas. No apical pneumothoraces. IMPRESSION: No displaced fracture or traumatic subluxation. Severe cervical spondylosis. CT scan - head: Radiologist's Impression: PROCEDURE: CT HEAD/BRAIN WO CON INDICATIONS: fall and hit head TECHNIQUE: Noncontrast 4.5 mm thick angled axial sections acquired from the foramen magnum to the vertex, with coronal and sagittal reformats. For radiation dose reduction, the following was used: automated exposure control, adjustment of mA and/or kV according to patient size. COMPARISON: None. FINDINGS: Image quality: Diagnostic. CSF spaces: Basal cisterns are patent. No extra-axial fluid collections. The ventricles are symmetric in size and shape. Brain: No intracranial bleeds or masses. There is cerebral volume loss for age, with resultant ventricular and sulcal prominence. There are periventricular and deep white matter chronic small vessel ischemic changes. There is intracranial internal carotid artery atherosclerosis. Skull and face: Calvarium and visualized facial bones appear intact, without suspicious lesions. Sinuses: Minimal air-fluid level, left maxillary sinus. IMPRESSION: No acute intracranial pathology. Mild left maxillary sinusitis. Hip x-ray: Radiologist's Impression: PROCEDURE: XR HIP W PEL IF DONE LT 2V INDICATIONS: hip pain after fall TECHNIQUE: AP pelvis with cross-table left hip. COMPARISON: [facility], CR, XR HIP W PEL IF DONE LT 2V, 11/17/2023, 12:45. FINDINGS: Bones: Bilateral total hip arthroplasty and partially visualized transpedicular isaiah and screw fixation of the lumbar spine. No fractures or dislocations. Pelvic ring appears intact. No suspicious bony lesions. Unchanged degeneration with displaced fragment of the left greater trochanter. Soft tissues: The visualized bowel gas pattern is normal. No suspicious soft tissue calcifications. IMPRESSION: No acute hardware or osseous abnormality. Femur x-ray: Radiologist's Impression: PROCEDURE: XR FEMUR LT MIN 2V INDICATIONS: pain after fall TECHNIQUE: 5 views of the femur were acquired. COMPARISON: [facility], CR, XR PELVIS WITH BILATERAL LATERAL HIPS, 01/03/2024, 16:43. [facility], CR, XR HIP W PEL IF DONE LT 2V, 03/18/2024, 9:13. FINDINGS: Bones: Stable appearance of the left hip total arthroplasty and displaced greater trochanteric fragment. No new fractures or dislocations. No suspicious bony lesions. Severe medial compartment osteoarthritis of the knee. Soft tissues: No suspicious soft tissue calcifications or masses. Distal SFA/popliteal artery calcification. IMPRESSION: 1. No acute hardware or osseous abnormality. 2. Moderate to severe tricompartmental osteoarthritis of the knee, most severe in the medial compartment. Pelvis CT: Radiologist's Impression: PROCEDURE: CT PEL WO CON INDICATIONS: hip pain TECHNIQUE: Noncontrast 3 mm axial sections acquired through the bony pelvis, with coronal and sagittal reformatting. COMPARISON: [facility], CT, CT LE LT WO CON, 03/18/2024, 9:42. FINDINGS: Image quality: Excellent. Bones: Total bilateral hip arthroplasties. No acute fracture or dislocation noted. Lower lumbar fusion. L3-L4 incompletely imaged, with canal stenosis, potentially severe. Soft tissues: No acute findings. Remote hysterectomy. IMPRESSION: 1. Bilateral total hip arthroplasties. 2. No acute fracture or dislocation. 3. Incomplete imaging of L3-L4 with canal stenosis, potentially severe. Lower extremity CT: Radiologist's Impression: PROCEDURE: CT LE LT W CON INDICATIONS: L leg deniz after fall TECHNIQUE: Noncontrast 3 mm axial sections acquired of the entirety of the left femur , with coronal and sagittal reformats. COMPARISON: [facility], CT, CT PEL WO CON, 03/18/2024, 9:42. [facility], CR, XR HIP W PEL IF DONE LT 2V, 03/18/2024, 9:13. [facility], CR, XR PELVIS WITH BILATERAL LATERAL HIPS, 01/03/2024, 16:43. FINDINGS: Image quality: Excellent. Bones: Total left hip arthroplasty. No fracture or dislocation noted. Severe degenerative arthritis involving the left knee. Soft tissues: Unremarkable IMPRESSION: 1. Total left knee arthroplasty. 2. No fracture or dislocation. 3. Severe left knee degenerative arthritis. [facility] Narrative Medical decision making narrative: Patient did have a fall last evening where she rolled out of bed most likely landing on her left hip. Head CT and cervical spine CT are unremarkable. Imaging studies of her left leg/hip are also unremarkable. Despite attempt pain control here in the ER patient has quite a bit of difficulty standing at bedside. She was seen by Physical therapy who recommended 2 person assist/sniff. Labs are unremarkable. Alert and oriented x3. Is tolerating oral intake. No definite criteria for admission to the hospital currently. Social work consult placed. Care turned over to Dr. Rene to follow up and disposition. Despite what is stated in the late nursing note I was available for the entirety of the patient care. The cervical collar was removed unilaterally by nursing staff without consultation with myself. 03/18/2024, 6:00 p.mEli, Edgard. Sign-out from Dr. Marsh. 83-year-old female with recent fall, left hip area pain, persisting, takes blood thinner medications, CT head imaging negative, CT cervical spine imaging negative, CT hip/pelvis also negative. Seen by physical therapy, awaiting assessment, possible SNF placement versus other disposition plan. 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 Assumed interim care. 1914, discussion with mental health social worker, they will attempt discharge home in the morning, with anticipated home health, order placed for home health. Patient wants her chronic pain medication, hydrocodone 5/325 oral dose ordered. 03/19/24, 0700, Edgard. Unremarkable remainder overnight course. Anticipate discharge home to family with Home Health, Order forms filled out and signed yesterday, await family arrival. PT to see again today. Signed out to Dr López. 03/19/24 Dr. López -patient observed, no new events. She actually performed much better with physical therapy today than yesterday. Continues to express eagerness to go home. Daughter arrived at bedside to transport patient. <Jeremie Rene MD - Last Filed: 03/19/24 15:37> Lab Data Labs: Lab Results 03/18/24 Range/Units 09:05 WBC 12.6 H (4.5-11.0) X10^3/uL RBC 4.49 (4.0-5.2) X10^6/uL Hgb 15.0 (12.0-16.0) g/dL Hct 45.1 (36-46) % MCV 100.5 H (80-100) fL MCH 33.5 (26-34) PG MCHC 33.3 (30-36) % RDW 13.5 (11.6-14.8) % Plt Count 214 (150-400) X10^3/uL Neut % (Auto) 87.3 H (50-75) % Lymph % (Auto) 5.9 L (25-40) % Mercer % (Auto) 6.4 (3-14) % Eos % (Auto) 0.1 L (2-4) % Baso % (Auto) 0.3 (0-2) % Neut # (Auto) 02011 H (2579-9097) /uL Lymph # (Auto) 700 L (9330-8636) /uL Mercer # (Auto) 800 (0-900) /uL Eos # (Auto) 0 (0-450) /uL Baso # (Auto) 0 (0-100) /uL Sodium 132 L (137-145) mmol/L Potassium 3.4 (3.4-5.1) mmol/L Chloride 94 L (98-107) mmol/L Carbon Dioxide 31 (22-32) mmol/L BUN 19 H (7-17) mg/dL Creatinine 0.66 (0.52-1.04) mg/dL Estimated GFR > 60 (>60) mL/min BUN/Creatinine Ratio 28.8 H (6-22) Glucose 108 (80-110) mg/dL Calcium 9.3 (8.4-10.2) mg/dL Total Creatine Kinase 126 (30-135) U/L MDM Narrative Medical decision making narrative: Patient did have a fall last evening where she rolled out of bed most likely landing on her left hip. Head CT and cervical spine CT are unremarkable. Imaging studies of her left leg/hip are also unremarkable. Despite attempt pain control here in the ER patient has quite a bit of difficulty standing at bedside. She was seen by Physical therapy who recommended 2 person assist/sniff. Labs are unremarkable. Alert and oriented x3. Is tolerating oral intake. No definite criteria for admission to the hospital currently. Social work consult placed. Care turned over to Dr. Rene to follow up and disposition. 03/18/2024, 6:00 p.m., Edgard. Sign-out from Dr. Marsh. 83-year-old female with recent fall, left hip area pain, persisting, takes blood thinner medications, CT head imaging negative, CT cervical spine imaging negative, CT hip/pelvis also negative. Seen by physical therapy, awaiting assessment, possible SNF placement versus other disposition plan. 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 Assumed interim care. 1914, discussion with mental health social worker, they will attempt discharge home in the morning, with anticipated home health, order placed for home health. Patient wants her chronic pain medication, hydrocodone 5/325 oral dose ordered. 03/19/24, 0700Edgard. Unremarkable remainder overnight course. Anticipate discharge home to family with Home Health, Order forms filled out and signed yesterday, await family arrival. PT to see again today. Signed out to Dr López. 03/19/24 Dr. López -patient observed, no new events. She actually performed much better with physical therapy today than yesterday. Continues to express eagerness to go home. Daughter arrived at bedside to transport patient. <Elle López MD - Last Filed: 03/19/24 13:44> Lab Data Labs: Lab Results 03/18/24 Range/Units 09:05 WBC 12.6 H (4.5-11.0) X10^3/uL RBC 4.49 (4.0-5.2) X10^6/uL Hgb 15.0 (12.0-16.0) g/dL Hct 45.1 (36-46) % MCV 100.5 H (80-100) fL MCH 33.5 (26-34) PG MCHC 33.3 (30-36) % RDW 13.5 (11.6-14.8) % Plt Count 214 (150-400) X10^3/uL Neut % (Auto) 87.3 H (50-75) % Lymph % (Auto) 5.9 L (25-40) % Mercer % (Auto) 6.4 (3-14) % Eos % (Auto) 0.1 L (2-4) % Baso % (Auto) 0.3 (0-2) % Neut # (Auto) 19572 H (4323-6057) /uL Lymph # (Auto) 700 L (1074-3055) /uL Mercer # (Auto) 800 (0-900) /uL Eos # (Auto) 0 (0-450) /uL Baso # (Auto) 0 (0-100) /uL Sodium 132 L (137-145) mmol/L Potassium 3.4 (3.4-5.1) mmol/L Chloride 94 L (98-107) mmol/L Carbon Dioxide 31 (22-32) mmol/L BUN 19 H (7-17) mg/dL Creatinine 0.66 (0.52-1.04) mg/dL Estimated GFR > 60 (>60) mL/min BUN/Creatinine Ratio 28.8 H (6-22) Glucose 108 (80-110) mg/dL Calcium 9.3 (8.4-10.2) mg/dL Total Creatine Kinase 126 (30-135) U/L MDM Narrative Medical decision making narrative: Patient did have a fall last evening where she rolled out of bed most likely landing on her left hip. Head CT and cervical spine CT are unremarkable. Imaging studies of her left leg/hip are also unremarkable. Despite attempt pain control here in the ER patient has quite a bit of difficulty standing at bedside. She was seen by Physical therapy who recommended 2 person assist/sniff. Labs are unremarkable. Alert and oriented x3. Is tolerating oral intake. No definite criteria for admission to the hospital currently. Social work consult placed. Care turned over to Dr. Rene to follow up and disposition. 03/18/2024, 6:00 p.m., Edgard. Sign-out from Dr. Marsh. 83-year-old with recent fall, left hip area pain, persisting, takes blood thinner medications, CT head imaging negative, CT cervical spine imaging negative, CT hip area also negative. Seen by physical therapy, awaiting assessment, possible sniff placement versus other disposition plan. 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 Assumed interim care. 1914, discussion with mental health social worker, they will attempt discharge home in the morning, with anticipated home health, order placed for home health. Patient wants her chronic pain medication, hydrocodone 5/325 oral dose ordered. 03/19/24 Dr. López -patient observed, no new events. She actually performed much better with physical therapy today than yesterday. Continues to express eagerness to go home. Daughter arrived at bedside to transport patient. Discharge Plan Departure Patient Disposition: Home Clinical Impression: Fall from ground level, Acute pain of left hip Activity Restrictions/Additional Instructions: Recent fall, taking blood thinner medications. Extensive imaging by initial provider included CT head study, CT cervical spine, and eventual imaging of the left hip area and pelvis, all reportedly negative. You had physical therapy assessment, and opted for home health consultation which was ordered. Take pain medications as tolerated. Continue chronic pain medications for now. Follow up with your regular doctor advised. Return to this/nearest emergency department for any change worsening symptoms or any concerns prior Prescriptions: No Action clindamycin phosphate 1 % lotion 1 applic topical BID PRN (Reason: Rosacea) Qty: 60 3RF oxybutynin chloride 10 mg tablet extended release 24hr 10 mg PO DAILY Qty: 90 3RF bupropion HCl 150 mg tablet extended release 24 hr 150 mg PO QAM Qty: 90 3RF diazepam [Valium] 10 mg tablet 10 mg PO .COMPLEX MDD 3 tabs Qty: 7 0RF Rx Instructions: 1 to 2 tabs 1hr prior to spinal procedure. May take an additional tab if steroid flare experienced the night after the procedure. Eliquis 5 mg tablet 5 mg PO BID Qty: 60 Prevagen 1 tab PO DAILY atenolol 25 mg tablet 25 mg PO BID lovastatin 40 mg tablet 40 mg PO QPM hydrochlorothiazide 25 mg tablet 12.5 mg PO Q DAY hydrocodone-acetaminophen 7.5-325 mg tablet 1 - 2 tab PO Q4-6H MDD 9 tabs PRN (Reason: pain) Qty: 250 0RF hydrocodone-acetaminophen 7.5-325 mg tablet 1 - 2 tab PO Q4-6H MDD 9 tabs PRN (Reason: pain) Qty: 250 0RF hydrocodone-acetaminophen 7.5-325 mg tablet 1 - 2 tab PO Q4-6H MDD 9 tabs PRN (Reason: pain) Qty: 250 0RF amoxicillin-pot clavulanate 500-125 mg tablet 1 tab PO BID Qty: 28 1RF (DME) Disabled Parking Permit See Rx Instructions .ROUTE .MEDSUPPLY Qty: 1 0RF Rx Instructions: Patient qualifies for disabled parking as per the attached form. betamethasone dipropionate 0.05 % ointment 1 applic topical DAILY PRN duloxetine 30 mg capsule,delayed release(DR/EC) 30 mg PO DAILY Qty: 90 3RF docusate sodium 100 mg capsule 100 mg PO DAILY Referrals: Phillip Valerio MD [Primary Care Provider] - Stand Alone Forms: Patient Portal/API/Survey
[2024-03-18 09:13] LABS: Add Manual Diff / Slide Review NO; Basophils Absolute Auto 0 /uL (0-100); Basophils Percent Auto 0.3 % (0-2); Eosinophils Absolute Auto 0 /uL (0-450); Eosinophils Percent Auto 0.1 % (2-4); Hematocrit 45.1 % (36-46); Lymphocytes Absolute Auto 700 /uL (1100-4500); Lymphocytes Percent Auto 5.9 % (25-40); Mean Corpuscular HGB Conc 33.3 % (30-36); Mean Corpuscular Hemoglobin 33.5 PG (26-34); Mean Corpuscular Volume 100.5 fL (80-100); Monocytes Absolute Auto 800 /uL (0-900); Monocytes Percent Auto 6.4 % (3-14); Neutrophils Absolute Auto 11000 /uL (1500-7000); Neutrophils Percent Auto 87.3 % (50-75); Platelet Count 214 X10^3/uL (150-400); Red Blood Cell Count 4.49 X10^6/uL (4.0-5.2); Red Cell Distribution Width 13.5 % (11.6-14.8); White Blood Cell Count 12.6 X10^3/uL (4.5-11.0)
[2024-03-18] MEDS: SODIUM CHLORIDE 0.9% 500 ML 1000 ML IV (09:20)
[2024-03-18 09:25] LABS: BUN Creatinine Ratio 28.8 (6-22); Blood Urea Nitrogen 19 mg/dL (7-17); Calcium 9.3 mg/dL (8.4-10.2); Carbon Dioxide 31 mmol/L (22-32); Chloride 94 mmol/L (98-107); Creatine Kinase 126 U/L (30-135); Estimated Glomerular Filt Rate > 60 mL/min (>60); Glucose 108 mg/dL (80-110); HEMOLYSIS < 15 (0-50); Potassium 3.4 mmol/L (3.4-5.1); Sodium 132 mmol/L (137-145)
--- NOTE | 2024-03-18 09:34 | DI.CT.S_ITS ---
PROCEDURE: CT LE LT W CON INDICATIONS: L leg deniz after fall TECHNIQUE: Noncontrast 3 mm axial sections acquired of the entirety of the left femur , with coronal and sagittal reformats. COMPARISON: [facility], CT, CT PEL WO CON, 03/18/2024, 9:42. [facility], CR, XR HIP W PEL IF DONE LT 2V, 03/18/2024, 9:13. [facility], CR, XR PELVIS WITH BILATERAL LATERAL HIPS, 01/03/2024, 16:43. FINDINGS: Image quality: Excellent. Bones: Total left hip arthroplasty. No fracture or dislocation noted. Severe degenerative arthritis involving the left knee. Soft tissues: Unremarkable IMPRESSION: 1. Total left knee arthroplasty. 2. No fracture or dislocation. 3. Severe left knee degenerative arthritis. Dictated by: Claus Broussard M.D. on 03/18/2024 at 10:34 Approved by: Claus Broussard M.D. on 03/18/2024 at 10:37
--- NOTE | 2024-03-18 09:34 | DI.CT.S_ITS ---
PROCEDURE: CT PEL WO CON INDICATIONS: hip pain TECHNIQUE: Noncontrast 3 mm axial sections acquired through the bony pelvis, with coronal and sagittal reformatting. COMPARISON: [facility], CT, CT [facility] WO CON, 03/18/2024, 9:42. FINDINGS: Image quality: Excellent. Bones: Total bilateral hip arthroplasties. No acute fracture or dislocation noted. Lower lumbar fusion. L3-L4 incompletely imaged, with canal stenosis, potentially severe. Soft tissues: No acute findings. Remote hysterectomy. IMPRESSION: 1. Bilateral total hip arthroplasties. 2. No acute fracture or dislocation. 3. Incomplete imaging of L3-L4 with canal stenosis, potentially severe. Dictated by: Claus Broussard M.D. on 03/18/2024 at 10:38 Approved by: Claus Broussard M.D. on 03/18/2024 at 10:40
[2024-03-18] MEDS: HYDROCODONE/ACET 5/325 TABLET 1 TAB PO ×2 (10:40→20:10)
--- NOTE | 2024-03-18 12:37 | PC.NURSE ---
Late Entry, at 1045 RN entered room to administer pain medication and reposition pt, at this time pt complaining of discomfort with c-collar and asking when it can be removed. Per CT reports no concern for C spine injury, physician not available at this time. RN removed c collar for pt comfort.
[2024-03-18] MEDS: MORPHINE 4 MG/ML INJ IV (12:54)
[2024-03-18] MEDS: KETOROLAC 30 MG/ML VIAL 15 MG IV (15:57)
--- NOTE | 2024-03-18 17:10 | PT.IIE ---
Surgical History (Last Reviewed 09/13/23 @ 12:08 by Herrera Mcintosh DO) Hx of total hip arthroplasty S/P lumbar spinal fusion Medical History (Last Reviewed 03/18/24 @ 09:13 by Kj Marsh DO) Acquired hypothyroidism (11/08/12) Chondrodermatitis nodularis chronica helicis Chronic atrial fibrillation Chronic obstructive pulmonary disease (05/29/17) Depression (06/13/14) Dorsalgia (01/20/17) Essential hypertension Gastroesophageal reflux disease without esophagitis Left knee DJD FCI current use of anticoagulant Lumbosacral spondylosis with radiculopathy Mixed hyperlipidemia (05/10/05) Obesity (05/10/05) Osteoarthritis (11/25/10) Spinal stenosis of lumbar region at multiple levels Uncomplicated opioid dependence Urinary incontinence Physical Therapy Inpatient Evaluation/Re-Eval M1 PT/OT-IP Prior Functional Status Start: 03/18/24 16:13 Freq: Status: Active Protocol: Document 03/18/24 16:16 MB (Rec: 03/18/24 17:10 [id number]) Medical Review Prior Functional Status Medical History Reviewed Yes Diet/Fluid Consistency Regular Communication WNLs Mobility and Gait Pt reports mod I SPC for gait, I with ADLs and drives Social History Household Members family Living Arrangements House Number of Floors (Floors) One Floor Number of Stairs To Enter/Railing? No steps to enter, daughter lives in basement Home Environment High Toilet,Walk in Shower Home Equipment Four Wheel Walker,Straight Cane,Hand Held Shower,Grab Bars In Shower Employment Status Retired M2 PT-IP Current Condition Start: 03/18/24 16:13 Freq: Status: Active Protocol: Document 03/18/24 16:16 MB (Rec: 03/18/24 17:10 [id number]) Physical Therapy Current Condition Current Condition Evaluation Date 03/18/24 Treatment Diagnosis Fall OOB, no fractures on dxs M3 PT-IP Subjective Start: 03/18/24 16:13 Freq: Status: Active Protocol: Document 03/18/24 16:16 MB (Rec: 03/18/24 17:10 MB [id number]) Subjective Physical Therapy Visit Type Type Initial Evaluation Visit Start Time 16:16 Visit Stop Time 16:36 Number of CIRCUIT BOARD DRAFTER Visits 0 Physical Therapy Visit Comments Patient Comments Pt c/o pain, is reluctant to participate with PT. She states her goal is to go home tomorrow. Therapy Pain Assessment Pain When Pain Assessed At Rest Pain Present Pain Present Pain Reported Location left thigh Intensity 8 M4 PT-IP Mobility and Gait Start: 03/18/24 16:13 Freq: Status: Active Protocol: Document 03/18/24 16:16 MB (Rec: 03/18/24 17:10 [id number]) PT-Bed Mobility Assessment Rolling Level of Assist Contact Guard Assistance Supine to Sit Supine to Sit Contact Guard Assistance,1 Person Assistance,Head of Bed Elevated Sit to Supine Sit to Supine Maximum Assistance,2 Person Assistance,Head of Bed Elevated Scooting Scooting to Edge of Bed Contact Guard Assistance PT-Transfer Assessment Sit to and From Stand Sit to and from Stand Contact Guard Assistance Equipment Transfer Assistive Device Gait Belt,Front Wheeled Walker Orthotic/Prosthetic Devices or Brace: No Transfers Transfer Destination Bed Transfer Technique One step forward, one side step Transfer Ability Level of Assist Contact Guard Assistance,1 Person Assistance,Use of Upper Extremities Comments Mobility Comments PT attempts to check orthostatics but pt mobilizes too slowly. Pt with high c/o pain with movement and to get back to bed, PT must lift legs into bed and daughter helps angle pt's shoulders Gait Assessment Gait Gait Assistance Required: Contact Guard Assist Able to Maintain Weight Bearing Status Yes During Gait Assistive Devices Assistive Device Gait Belt,Front Wheeled Walker Gait Deviations General Gait Pattern Antalgic,Decreased Stride Length,Decreased Feet Clearance,Flexed Trunk,Step-to Gait,Wide Based Gait Factors Limiting Gait Function Factors Limiting Gait Function Decreased Activity Tolerance, Decreased Strength,Difficulty Following Directions, Incoordination,Limited Range of Motion,Pain,Poor Balance, Poor Safety Awareness Comments Gait Comments 1 step-to step forward and 1 step-to step to the right, antalgic, decreased step- length and foot clearance, one step backwards, little foot clearance and all mobility is very slow PT-Balance Assessment Sitting Balance and Reactions Static Sitting Balance Ability Good Dynamic Sitting Balance Ability Fair Standing Balance and Reactions Static Standing Balance Ability Fair Dynamic Standing Balance Ability Poor Device Used RW M5 PT-IP Objective Assessments Start: 03/18/24 16:13 Freq: Status: Active Protocol: Document 03/18/24 16:16 MB (Rec: 03/18/24 17:10 [id number]) Orientation Orientation/Cognition Level of Alertness Alert Orientation Name,Age,Birthday,Month,Year, Day of Week,Place,Situation Language Function Ability No Deficits Noted Safety Awareness Decreased Safety Awareness Memory Description No Deficits Noted Gross Range of Motion Upper Extremity ROM Impairments NT Lower Extremity ROM Assessment Bilaterally Impaired Impairments Left LE pain and pt self- limits functional range left leg Strength Lower Extremity Strength Assessment Bilaterally Impaired Comments Strength Comments B LE weakness and pt does not tolerate MMT d/t pain Coordination Assessment Gross Coordination Gross Coordination Impaired Assessment Coordination Comments Slow and antalgic movement Sensation Assessment Comments Sensation Comments NT Muscle Tone Muscle Tone WNL Yes M6 PT-IP Treatment Start: 03/18/24 16:13 Freq: Status: Active Protocol: Document 03/18/24 16:16 MB (Rec: 03/18/24 17:10 [id number]) Physical Therapy Treatment Education Education Provided Safety M7 PT-IP Assessment and Plan Start: 03/18/24 16:13 Freq: Status: Active Protocol: Document 03/18/24 16:16 MB (Rec: 03/18/24 17:10 [id number]) PT Summary Assessment and Plan Potential Rehabilitation Potential Fair Status of Condition at Evaluation Evolving Summary Impairments Pain,ROM,Strength,Balance, Coordination,Bed Mobility, Transfers,Gait,Activity Tolerance Progress Towards Goals Slow Progress due to Pain Assessment Summary Pt is an 83 y/o female presenting with high c/o LLE pain after fall off bed and staying on the floor overnight . Pt's daughter lives in basement and finally heard her . Pt had life alert in the past and they report the company fired the pt. Pt's mobility is very slow. She requires CGA and increased time to get up to [facility] with cues, cues for one step and she cannot tolerate further forward gait and 2 person [place] At this time, she requires SNF at d/c. If she improves with mobility, she may be able to go home with 24 hour assistance and HH. Pt states she wants to go home tomorrow. Daughter states she wants whatever her mom wants. Goals Bed Mobility Goal Independent Transfer Goal Independent,Front Wheeled Walker Gait Goal Independent,Front Wheel Walker Gait Distance 75 Days to Meet Goals 5 Frequency of Treatment Frequency Of Treatment Once a Day Treatment Plan Physical Therapy Treatment Plan Bed Mobility Training,Transfer Training,Gait Training, Therapeutic Exercise,Balance Retraining,Discharge Planning, Hot or Cold Pack,Neuromuscular Re-ed,Coordination Retraining ,Manual Therapy Weight Bearing Status Allowed Weight Bearing Amount (enter % No limitations in orders or #) (%) Recommendations To Nursing Amount of Assist Needed 2 Person Assist Discharge Recommendations PT Discharge Recommendations SNF Rehab Transportation Needs at Discharge Private Vehicle,Wheelchair/ Cabulance
[2024-03-18] MEDS: APIXABAN 5 MG TABLET PO (18:43)
--- NOTE | 2024-03-18 19:15 | CM.SWNOTE ---
ED BUCKET OPERATOR Note Pt is a 83 yo female who presents to the ED following GLF. 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 Pt's supports are her daughter who lives downstairs from her, her neighbors, stepson, and religion friends. Pt has a walker at home but has been using a cane. Pt has [employer], I can't remember her last name, in [place]. Pt reports she does fine with them in terms of her ADL's. Pt plans to get a new life alert upon d/c. Pt would like to d/c home reporting her daughter will be able to help her and they are planning how to keep her safe. Pt reports her daughter or a friend can pick her up but not until tomorrow. BUCKET OPERATOR discussed home health options w/ pt. Pt had no preference. BUCKET OPERATOR discussed w/ ED provider and faxed referral to [facility]. JANICE Flores, DADA, CARLA
[2024-03-19] MEDS: HYDROCODONE/ACET 5/325 TABLET 1 TAB PO ×3 (01:40→13:30)
[2024-03-19 08:08] VITALS: O2SAT 95
[2024-03-19 08:09] VITALS: BP 171/96; PULSE 85; O2SAT 92
[2024-03-19 08:30] VITALS: PULSE 87; O2SAT 93
[2024-03-19 08:31] VITALS: BP 116/77; PULSE 90; O2SAT 94
--- NOTE | 2024-03-19 08:55 | PT.IPTN ---
Physical Therapy Treatment Note M2 PT-IP Current Condition Start: 03/18/24 16:13 Freq: Status: Active Protocol: Document 03/18/24 16:16 MB (Rec: 03/18/24 17:10 MB [id number]) Physical Therapy Current Condition Current Condition Evaluation Date 03/18/24 Treatment Diagnosis Fall OOB, no fractures on dxs M3 PT-IP Subjective Start: 03/18/24 16:13 Freq: Status: Active Protocol: Document 03/19/24 09:32 TS (Rec: 03/19/24 10:06 TS [id number]) Subjective Physical Therapy Visit Type Type Treatment Note Visit Start Time 08:55 Visit Stop Time 09:30 Number of NEWSPAPER MANAGER Visits 1 Physical Therapy Visit Comments Patient Comments Pt found resting in bed, pt reports pain in her L leg. Discussed d/c plan, pt is not agreeable to going to SNF and would like to go home. She is agreeable to PT. Therapy Pain Assessment Pain When Pain Assessed At Rest Pain Present Pain Present Pain Reported M4 PT-IP Mobility and Gait Start: 03/18/24 16:13 Freq: Status: Active Protocol: Document 03/19/24 09:32 TS (Rec: 03/19/24 10:06 TS [id number]) PT-Bed Mobility Assessment Supine to Sit Supine to Sit Standby Assistance,Head of Bed Elevated,Bedrails Sit to Supine Sit to Supine Standby Assistance,Head of Bed Elevated,Bedrails Scooting Scooting to Edge of Bed Standby Assistance PT-Transfer Assessment Sit to and From Stand Sit to and from Stand Standby Assistance,Contact Guard Assistance Equipment Transfer Assistive Device Gait Belt,Front Wheeled Walker Orthotic/Prosthetic Devices or Brace: No Comments Mobility Comments Supine to sit SBA with HOB elevated 25D and with use of handrails. She scoots to EOB SBA with BUE support. STS with FWW CGA, pt is slow to stand. Pt reprots about 505 wbering on LLE. She ambulates to other side of bed ~10 SBA/CGA with FWW, pt has slow movements with antalgic step to gait. Pt reports some fatigue and sits on EOB. STS from bed SBA with FWW. She ambulates around the bed ~10'SBA. Sit to supine into bed SBA, pt requries extra time to complete task due to weakness and pain. Pt was left in bed, all needs met . Gait Assessment Gait Gait Assistance Required: Standby Assistance,Contact Guard Assist Able to Maintain Weight Bearing Status Yes During Gait Assistive Devices Assistive Device Gait Belt,Front Wheeled Walker Orthotic/Prosthetic Devices or Brace: No Gait Deviations General Gait Pattern Antalgic,Decreased Stride Length,Decreased Feet Clearance,Flexed Trunk,Step-to Gait,Wide Based Gait Factors Limiting Gait Function Factors Limiting Gait Function Decreased Activity Tolerance, Decreased Strength,Difficulty Following Directions, Incoordination,Limited Range of Motion,Pain,Poor Balance, Poor Safety Awareness Comments Gait Comments See mobility comments PT-Balance Assessment Sitting Balance and Reactions Static Sitting Balance Ability Good Dynamic Sitting Balance Ability Fair Standing Balance and Reactions Static Standing Balance Ability Fair Dynamic Standing Balance Ability Fair Device Used FWW M5 PT-IP Objective Assessments Start: 03/18/24 16:13 Freq: Status: Active Protocol: Document 03/18/24 16:16 MB (Rec: 03/18/24 17:10 MB [id number]) Orientation Orientation/Cognition Level of Alertness Alert Orientation Name,Age,Birthday,Month,Year, Day of Week,Place,Situation Language Function Ability No Deficits Noted Safety Awareness Decreased Safety Awareness Memory Description No Deficits Noted Gross Range of Motion Upper Extremity ROM Impairments NT Lower Extremity ROM Assessment Bilaterally Impaired Impairments Left LE pain and pt self- limits functional range left leg Strength Lower Extremity Strength Assessment Bilaterally Impaired Comments Strength Comments B LE weakness and pt does not tolerate MMT d/t pain Coordination Assessment Gross Coordination Gross Coordination Impaired Assessment Coordination Comments Slow and antalgic movement Sensation Assessment Comments Sensation Comments NT Muscle Tone Muscle Tone WNL Yes M6 PT-IP Treatment Start: 03/18/24 16:13 Freq: Status: Active Protocol: Document 03/19/24 09:32 TS (Rec: 03/19/24 10:06 [id number]) Physical Therapy Treatment Education Education Provided Safety M7 PT-IP Assessment and Plan Start: 03/18/24 16:13 Freq: Status: Active Protocol: Document 03/19/24 09:32 TS (Rec: 03/19/24 10:06 [id number]) PT Summary Assessment and Plan Potential Rehabilitation Potential Fair Summary Impairments Pain,ROM,Strength,Balance, Coordination,Bed Mobility, Transfers,Gait,Activity Tolerance Progress Towards Goals Slow Progress due to Pain Assessment Summary Pt is making some progress with her mobility. She is SBA for bed mobility with use of rails. She progressed her gait to ~20' SBA/CGA with FWW. She has slow movement with all mobility and reports wbering ~ 50% on LLE with gait. PT is recommending Home 24/7 vs SNF. Would recommend pt go home with 24/7 assist, expect she will keep making quick progress. If she cannot get more support at home would recommend SNF to improve functional mobility, strength and activity tolerance. Pt states she will not go to SNF. Goals Bed Mobility Goal Independent Transfer Goal Independent,Front Wheeled Walker Gait Goal Independent,Front Wheel Walker Gait Distance 75 Days to Meet Goals 5 Frequency of Treatment Frequency Of Treatment Once a Day Treatment Plan Physical Therapy Treatment Plan Bed Mobility Training,Transfer Training,Gait Training, Therapeutic Exercise,Balance Retraining,Discharge Planning, Hot or Cold Pack,Neuromuscular Re-ed,Coordination Retraining ,Manual Therapy Weight Bearing Status Allowed Weight Bearing Amount (enter % No limitations in orders or #) (%) Recommendations To Nursing Amount of Assist Needed 1 Person Assist Discharge Recommendations PT Discharge Recommendations Home Health,Home vs SNF Transportation Needs at Discharge Private Vehicle,Wheelchair/ Cabulance
--- NOTE | 2024-03-19 10:14 | PC.NURSE ---
Per Dr. Jose bueno for pt to take home meds including her eliquis. VSS
[2024-03-19 11:35] VITALS: BP 112/65; PULSE 83; O2SAT 97
--- NOTE | 2024-03-19 11:35 | OT.IP.EVAL ---
Past Medical History (Last Reviewed 03/18/24 @ 09:13 by Kj Marsh DO) Acquired hypothyroidism (11/08/12) Chondrodermatitis nodularis chronica helicis Chronic atrial fibrillation Chronic obstructive pulmonary disease (05/29/17) Depression (06/13/14) Dorsalgia (01/20/17) Essential hypertension Gastroesophageal reflux disease without esophagitis Left knee DJD intermediate current use of anticoagulant Lumbosacral spondylosis with radiculopathy Mixed hyperlipidemia (05/10/05) Obesity (05/10/05) Osteoarthritis (11/25/10) Spinal stenosis of lumbar region at multiple levels Uncomplicated opioid dependence Urinary incontinence Surgical History (Last Reviewed 09/13/23 @ 12:08 by Herrera Mcintosh DO) Hx of total hip arthroplasty S/P lumbar spinal fusion Occupational Therapy Inpatient Evaluation/Re-Eval M1 PT/OT-IP Prior Functional Status Start: 03/18/24 16:13 Freq: Status: Active Protocol: Document 03/19/24 11:37 [facility] (Rec: 03/19/24 11:46 [facility] [id number]) Medical Review Prior Functional Status Medical History Reviewed Yes Diet/Fluid Consistency Regular Communication WNLs Mobility and Gait Pt reports mod I SPC for gait, I with ADLs and drives Activities of Daily Living and IADL's Pt independent with all needs and uses LB dressing equipment at times. Social History Household Members family Living Arrangements House Number of Floors (Floors) One Floor Number of Stairs To Enter/Railing? No steps to enter, daughter lives in basement Home Environment High Toilet,Walk in Shower Home Equipment Four Wheel Walker,Straight Cane,Hand Held Shower,Grab Bars In Shower Employment Status Retired M2 OT-IP Current Condition Start: 03/19/24 11:34 Freq: Status: Active Protocol: Document 03/19/24 11:37 [facility] (Rec: 03/19/24 11:46 [facility] [id number]) Occupational Therapy Current Condition Current Condition Evaluation Date 03/19/24 Treatment Diagnosis GLF Diagnosis Onset Date 03/18/24 M3 OT- IP Subjective and Pain Start: 03/19/24 11:34 Freq: Status: Active Protocol: Document 03/19/24 11:37 [facility] (Rec: 03/19/24 11:46 [facility] [id number]) OT- Subjective Occupational Therapy Visit Type Type Initial Evaluation Visit Start Time 10:55 Visit Stop Time 11:35 Occupational Therapy Visit Comments Patient Comments Pt agreed to get up and try the 4ww. OT Pain Assessment Pain When Pain Assessed During Mobility Pain Present Pain Present Pain Reported Location left thigh Intensity 7 Scale Used Numeric (0 - 10) M4 OT- IP ADL's Start: 03/19/24 11:34 Freq: Status: Active Protocol: Document 03/19/24 11:37 [facility] (Rec: 03/19/24 11:46 [facility] [id number]) OT HRC-Aoun-Ksibfqw General Evaluation Self-Feeding Ability Independent OT ADL-Grooming Comments OT Grooming Comments NO issues anticipated. OT ADL-Oral Care Comments Oral Care Comments NO issues anticipated. OT ADL-Dressing General Eval Lower Body Dressing Ability Minimal Assistance Comments OT Dressing Comments Due to pain, pt will need use of her LB dressing equipment or assist from her daughter at this time. OT ADL-Toileting Comments OT Toileting Comments Pt will need assist for clothing and completeness of hygiene at this time. Suggested to get a BSC. OT ADL-Bathing Comments OT Bathing Comments Pt will benefit form assist. M5 OT- IP IADL's Start: 03/19/24 11:34 Freq: Status: Active Protocol: Document 03/19/24 11:37 [facility] (Rec: 03/19/24 11:46 [facility] [id number]) OT-Instrumental Activities of Daily Living Deficits IADL Deficits Identified Deficits Home Safety Awareness Awareness of Need for Assistance at Home Good Awareness Ability to Problem Solve Emergency Able to Problem Solve Situations Home Safety Comments Pt agrees to have her daughter stay with her initially. Medication Management Medication Management No Deficits Identified Money Management Money Management No Deficits Identified Meal Preparation Meal Preparation Caregiver Provides Assist Garage Door Hanger Garage Door Hanger Caregiver Provides Assist M6 OT- IP Functional Cognition Start: 03/19/24 11:34 Freq: Status: Active Protocol: Document 03/19/24 11:37 [facility] (Rec: 03/19/24 11:46 [facility] [id number]) Cognitive Factors Limiting Selfcare Function Cognitive Ability Level of Alertness Alert Patient Orientation Name,Age,Birthday,Month,Date, Year,Day of Week,Place, Situation Attention Span Ability Capable of Focused Attention, Capable of Sustained Attention Ability to Follow Commands Able to Follow One Step Commands Cognitive Comments Cognitive Assessment Comments Pt appears intact for her age. Pt realizes to re- subscribe to [employer] and also look into getting a caregiver pager for her house. OT- Vision and Hearing OT- Hearing Assessment OT- Hearing Assessment WFL OT- Vision Assessment Visual Acuity Glasses For Reading Visual Attentiveness WFL Occular Pursuits WFL M7 OT- IP Mobility and Balance Start: 03/19/24 11:34 Freq: Status: Active Protocol: Document 03/19/24 11:37 [facility] (Rec: 03/19/24 11:46 [facility] [id number]) OT- Bed Mobility Assessment Supine to Sit Supine to Sit Assist Contact Guard Assistance Sit to Supine Sit to Supine Assist Standby Assistance,Contact Guard Assistance OT-Transfer Assessment Sit to and From Stand Sit to and from Stand Contact Guard Assistance Transfers Transfer Ability Contact Guard Assistance Technique Transfer Destination Bed Transfer Technique Stand Step Pivot Devices Transfer Assistive Devices Gait Belt,4 Wheeled Walker Comments Mobility Comments Assist to get her LLE into and outof the bed and then educated to use the gait belt of Parchment cane to assist and then pt able to do on her own with increased time. CGA to stand and take a few steps with the 4ww. Pt realizes much safer to use the fww and to obtain one. OT- Balance Assessment Sitting Balance and Reactions Static Sitting Balance Ability Good Dynamic Sitting Balance Ability Fair Standing Balance and Reactions Static Standing Balance Ability Fair Dynamic Standing Balance Ability Fair M8 OT- IP Objective Assessments Start: 03/19/24 11:34 Freq: Status: Active Protocol: Document 03/19/24 11:37 [facility] (Rec: 03/19/24 11:46 [facility] [id number]) OT Strength Upper Extremity Strength Assessment Within Functional Limits Hand Livestock Auctioneer Strength Hand Dominance Right M9 OT- IP Assessment and Plan Start: 03/19/24 11:34 Freq: Status: Active Protocol: Document 03/19/24 11:37 [facility] (Rec: 03/19/24 11:46 [facility] [id number]) OT Summary Assessment and Plan Potential Rehabilitation Potential Good Analytic Complexity at Evaluation Low Summary OT Impairments Pain,Balance,Functional Mobility,Dressing,Toileting, Bathing,Toilet Transfers, Shower Transfers,Activity Tolerance Progress Towards Goals Progressing Toward Goals,Slow Progress due to Pain Assessment Summary Pt low complexity and main barriers are pain and will now need more assist from her daughter and benefit from home health and for her daughter to stay with her initially. Pt also suggested to get FWW, BSC, and caregiver pager. Goals Self-Feeding Goal Independent Grooming Goal Independent Dressing Goal Independent,Door Builder,Sock Aid Toileting Goal Independent Bathing Goal Standby Assistance Toilet Transfer Goal Independent Shower Transfer Goal Standby Assistance Days to Meet Goals 10 Frequency of Treatment Other frequency 5x/week Treatment Plan OT Treatment Plan ADL Training,Functional Cognition Training,Patient/ Family Education,Discharge Planning Discharge Recommendations OT Discharge Recommendations Home with 24/7 Assist Available,Home Health Home Equipment Needs FWW, Life line, BSC Transportation Needs at Discharge Private Vehicle
--- NOTE | 2024-03-19 14:17 | CM.SWNOTE ---
ED PUNCHBOARD ASSEMBLER Note PUNCHBOARD ASSEMBLER confirms that [facility] received referral. They request d/c summary upon d/c, it is reported that they can accept patient but so far the soonest available start of care would be Sunday 03/25. PUNCHBOARD ASSEMBLER requests sooner start of care if possible. PUNCHBOARD ASSEMBLER provides patient and daughter with lists of life alert resources, lists of caregivers, list of DME resources and senior resource guide. Daughter reports that she works director of medical services and lives in the home and can not always be around when patient needs her. Patient endorses she reached out to friends to look into finding a caregiver and have natural supports available to patient, patient endorses plan to get a life alert. PUNCHBOARD ASSEMBLER discusses the community water tester program and submits referral with Landry Stevens for patient and provides his contact information. Plan: patient to d/c to home upon medical clearance with daughter, [facility] to f/u with patient, patient to f/u with PCP, seek in home supports and Community water tester to f/u with patient. SHANE MontgomerySW
== END 2024-03-19 13:56 | disposition home or self-care (01) ==
PROVIDERS: Emergency Medicine; Emergency Provider Emergency Medicine; Family Provider Internal Medicine; PCP Internal Medicine
DX: M79.652 Pain in left thigh (principal); S09.90XA Unspecified injury of head, initial encounter; M54.2 Cervicalgia; W06.XXXA Fall from bed, initial encounter
CPT/HCPCS: 70450; 72125; 72192; 73502; 73552; 73700; 80048; 82550; 85025; 96361; 96374; 96375; 97161; 97165; 97530; 99284; J1885; J2270

== ENCOUNTER 2024-06-27 13:26 | Outpatient (CLI) | payer MEDICARE, SELFPAY ==
[2024-03-18 20:25] VITALS: BMI 29.2
[2024-06-27] VITALS (8 sets, daily range): BP systolic 138–181; BP diastolic 66–93; PULSE 63–79; RESP 14–20; TEMP 36.4; O2SAT 93–97
[2024-06-27] MEDS: MIDAZOLAM 2 MG/2 ML VIAL IV (15:21)
[2024-06-27] MEDS: BUPIVACAINE 0.25% (PF) VIAL 2 ML INJ (15:25)
[2024-06-27] MEDS: DEXAMETHASONE 10 MG/ML VIAL 20 MG INJ (15:25)
[2024-06-27] MEDS: BETAMETHASONE 30 MG/5 ML MDV 12 MG INJ (15:25)
[2024-06-27] MEDS: iopamidoL 15 ML VIAL 3 ML INJ (15:25)
--- NOTE | 2024-06-27 15:43 | P.PCN_ITS ---
Date/Time/Diagnoses Date of procedure: 06/27/24 Time of procedure: 15:43 Pre-procedure diagnosis: 1. FORAMINAL STENOSIS WITH LE SYMPTOMS Post-procedure diagnosis: same Procedure Notes Procedure: 1. FLUOROSCOPICALLY GUIDED CONTRAST CONTROLLED TRANSFORAMINAL EPIDURAL STEROID INJECTION - LEFT L3/4 TFESI Indications: Ana is referred by Dr. Valerio for treatment of Foraminal Stenosis with left LE Symptoms Physician: Herrera Mcintosh Total Fluoroscopy time (seconds): 11 Total sedation minutes: 19 Complications: none Procedure in detail & Post-procedure care: FINDINGS Foraminal Nerve Root Compression secondary to disc disease and facet hypertrophy DESCRIPTION OF PROCEDURE Following review of allergy and review of potential side effects and complications, including, but not necessarily limited to, infection, allergic reaction, local tissue breakdown, stroke, temporary or permanent nerve injury, paralysis, and possible , the patient indicated that the patient understood and agreed to proceed. An informed consent document was signed by the patient, witnessed by a nurse, and placed in the patient's chart. Additionally, other treatment options including medications, modalities, and physical therapy were reviewed with the patient. After review of previous anaesthesic history and IV conscious sedation the patient was deemed safe to proceed with today?s procedure with IV conscious sedation as ASA class II designation. Safety time-out was performed to confirm patient ID, procedure to be performed and site of procedure. IV sedation was accomplished with a combination of 2mg of Versed was administered by the RN after DO order, titrated to patient comfort during the course of the procedure while the patient remained responsive to all verbal commands In the prone position following sterile prep and drape of the lumbar region, the left L3/4 posterior neuroforamen was identified fluoroscopically. The skin was anesthetized via a 25-gauge 1.5-inch needle with 1% lidocaine solution. At this point, a 25-gauge 3.5-inch spinal needle was atraumatically introduced and advanced under fluoroscopic guidance through the posterior left L3/4 neuroforamen to approximately the anterior aspect of the canal. Depth was confirmed on lateral view. Following negative aspiration, injection of approximately 1.5 cc of Isovue 200 under live fluoroscopy in the AP view confirm ed excellent flow along the nerve root, into the epidural space without vascular or intrathecal uptake observed Radiological data, including multiple fluoroscopic views of the lumbosacral spine, reveal a spinal needle at the left L3/4 posterior neuroforamen. Subsequent views show flow of contrast material flowing superiorly and inferiorly along the nerve root confirming epidural flow. Subsequently, a test dose of 1.5cc of 1% lidocaine solution was administered and patient was observed for two minutes for signs or symptoms of complications, including abdominal pain, shortness of breath, bilateral upper or lower extremity weakness, nausea and vomiting, prior to steroid injection. At this point, a total of 2cc or 10mg of dexamethasone and 6mg betamethasone was injected without incident. The patient tolerated the procedure well without signs or symptoms of complications prior to transfer to the recovery area continued monitoring without incident. The patient was then transferred to the recovery area where they were observed for an appropriate time after the injection. The patient reported a VAS score of 7 prior to the procedure and a post-procedure VAS of 0. POST OP INSTRUCTIONS The patient was provided a Pain Log to continue to record their response to the target-specific procedure prior to follow-up visit with their referring physician. Additionally, specific post-injection care instructions and a contact number to our office were provided if concerns arise regarding possible complications associated with the procedure are suspected.
--- NOTE | 2024-06-27 15:44 | P.PCN_ITS ---
Date/Time/Diagnoses Date of procedure: 06/27/24 Time of procedure: 15:44 Pre-procedure diagnosis: 1. FORAMINAL STENOSIS WITH LE SYMPTOMS Post-procedure diagnosis: same Procedure Notes Procedure: 1. FLUOROSCOPICALLY GUIDED CONTRAST CONTROLLED TRANSFORAMINAL EPIDURAL STEROID INJECTION - LEFT L4/5 Indications: Ana is referred by Dr. Valerio for treatment of Foraminal Stenosis with Left LE Symptoms Physician: Herrera Mcintosh Total Fluoroscopy time (seconds): 11 Total sedation minutes: 19 Complications: none Procedure in detail & Post-procedure care: FINDINGS Foraminal Nerve Root Compression secondary to disc disease and facet hypertrophy DESCRIPTION OF PROCEDURE Following review of allergy and review of potential side effects and complications, including, but not necessarily limited to, infection, allergic reaction, local tissue breakdown, stroke, temporary or permanent nerve injury, paralysis, and possible , the patient indicated that the patient understood and agreed to proceed. An informed consent document was signed by the patient, witnessed by a nurse, and placed in the patient's chart. Additionally, other treatment options including medications, modalities, and physical therapy were reviewed with the patient. After review of previous anaesthesic history and IV conscious sedation the patient was deemed safe to proceed with today?s procedure with IV conscious sedation as ASA class II designation. Safety time-out was performed to confirm patient ID, procedure to be performed and site of procedure. IV sedation was accomplished with a combination of 2mg of Versed administered by the RN after DO order, titrated to patient comfort during the course of the procedure while the patient remained responsive to all verbal commands In the prone position following sterile prep and drape of the lumbar region, the left L4/5 posterior neuroforamen was identified fluoroscopically. The skin was anesthetized via a 25-gauge 1.5-inch needle with 1% lidocaine solution. At this point, a 25-gauge 3.5-inch spinal needle was atraumatically introduced and advanced under fluoroscopic guidance through the posterior left L4/5 neuroforamen to approximately the anterior aspect of the canal. Depth was confirmed on lateral view. Following negative aspiration, injection of approximately 1.5 cc of Isovue 200 under live fluoroscopy in the AP view confirmed excellent flow along the nerve root, into the epidural space without vascular or intrathecal uptake observed Radiological data, including multiple fluoroscopic views of the lumbosacral spine, reveal a spinal needle at the left L4/5 posterior neuroforamen. Subsequent views show flow of contrast material flowing superiorly and inferiorly along the nerve root confirming epidural flow. Subsequently, a test dose of 1.5 cc of 1% lidocaine solution was administered and patient was observed for two minutes for signs or symptoms of complications, including abdominal pain, shortness of breath, bilateral upper or lower extremity weakness, nausea and vomiting, prior to steroid injection. At this point, a total of 2cc or 10mg of dexamethasone and 6mg of betamethasone was injected without incident. The procedure tolerated the procedure well without signs or symptoms of complications prior to transfer to the recovery area continued monitoring without incident. The patient was then transferred to the recovery area where they were observed for an appropriate time after the injection. The patient reported a VAS score of 7 prior to the procedure and a post- procedure VAS of 0. POST OP INSTRUCTIONS The patient was provided a Pain Log to continue to record their response to the target-specific procedure prior to follow-up visit with their referring physician. Additionally, specific post-injection care instructions and a contact number to our office were provided if concerns arise regarding possible complications associated with the procedure are suspected.
== END 2024-06-27 15:59 | disposition home or self-care (01) ==
PROVIDERS: Family Provider Internal Medicine; PCP Internal Medicine; Referring Provider Physical Medicine & Rehabilitation; Visit Provider Physical Medicine & Rehabilitation
DX: M48.061 Spinal stenosis, lumbar region without neurogenic claudication (principal); M51.16 Intervertebral disc disorders with radiculopathy, lumbar region; M47.26 Other spondylosis with radiculopathy, lumbar region
CPT/HCPCS: 64483; 64484; 99152; J0702; J1100; J2250; J3490

== ENCOUNTER 2024-12-26 08:39 | Outpatient (CLI) | payer MEDICARE, SELFPAY ==
[2024-03-18 20:25] VITALS: BMI 29.2
[2024-12-26] VITALS (8 sets, daily range): BP systolic 119–150; BP diastolic 59–83; PULSE 72–88; RESP 14–20; TEMP 36.3; O2SAT 90–94
[2024-12-26] MEDS: MIDAZOLAM 2 MG/2 ML VIAL IV (10:12)
--- NOTE | 2024-12-26 10:33 | P.PCN_ITS ---
Date/Time/Diagnoses Date of procedure: 12/26/24 Time of procedure: 10:33 Pre-procedure diagnosis: 1. CERVICAL STENOSIS, 2. CERVICAL HNP WITH UPPER EXTREMITY RADICULAR FEATURES Post-procedure diagnosis: same Procedure Notes Procedure: 1. FLUORSCOPICALLY GUIDED CONTRAST CONTROLLED INTERLAMINAR EPIDURAL STEROID INJECTION - C6/7 TL NORA Indications: Ana is referred by Dr. Valerio for treatment of Cervical HNP with Upper Extremity Paresthesias. Physician: Herrera Mcintosh Total Fluoroscopy time (seconds): 24 Total sedation minutes: 14 Complications: none Procedure in detail & Post-procedure care: FINDINGS Cervical Stenosis due to disc deterioration and nerve root irritation and nerve root irritation DESCRIPTION OF PROCEDURE Fluoroscopically guided, contrast-controlled C6/7 translaminar epidural steroid injection with conscious sedation. Following review of allergy and review of potential side effects and complications, including, but not necessarily limited to, infection, allergic reaction, local tissue breakdown, temporary as well as permanent nerve injury, stroke, paralysis, and possible , the patient indicated that patient understood and agreed to proceed. An informed consent document was signed by the patient, witnessed by a nurse, and placed in the patient's chart. Additionally, other treatment options including modalities, medications, and physical therapy were reviewed with the patient. After review of previous anaesthesic history and IV conscious sedation the patient was deemed safe to proceed with today?s procedure with IV conscious sedation as ASA class II designation. Safety time-out was performed to confirm patient ID, procedure to be performed and site of procedure. IV sedation was accomplished with a combination of 2mg of Versed administered by the RN after DO order, titrated to patient comfort during the course of the procedure while the patient remained responsive to all verbal commands. In the prone position, following sterile prep and drape of the cervical region, the C6/7 translaminar space was identified fluoroscopically. The skin was anesthetized via a 25-gauge 1.5-inch needle with 1% lidocaine solution. At this point, a 25-gauge, 2.5-inch short bevel spinal needle was atraumatically introduced and advanced under fluoroscopic guidance into epidural space at the C6/7 translaminar space. Depth was confirmed on lateral view. Radiological data, including multiple fluoroscopic views of the cervical spine, reveal a spinal needle at the C6/7 translaminar space. Lateral views then show placement of the needle in the epidural space. Subsequent views show contrast material flowing superiorly and inferiorly in the epidural space. DSA fluoroscopy with live contrast injection, once again, confirmed no vascular or intrathecal uptake. At this point, using loss of resistance technique with saline and air, the epidural space was entered. Following negative aspiration, injection of approximately 1.5 cc of Isovue-200 with live fluoroscopy in the AP view confirmed epidural flow in the epidural space without vascular or intrathecal uptake observed. Subsequently, a test dose of 1 cc of 1% lidocaine solution was injected and patient was observed for two minutes without signs or symptoms of complications, including abdominal pain, shortness of breath, bilateral upper or lower extremity weakness, nausea and vomiting, prior to steroid injection. At this point, 2cc or 20mg of dexamethasone was then injected without incident. The patient tolerated the procedure well without signs or symptoms of compl ications prior to being transferred to the recovery area for further monitoring, The patient was then transferred to the recovery area where they were observed for an appropriate period of time after the injection. The patient reported a VAS score of 7 prior to the procedure and a post-procedure VAS of 1. POST OP INSTRUCTIONS The patient was provided a Pain Log to continue to record their response to the target-specific procedure prior to follow-up visit with the referring provider. Additionally, specific post-injection care instructions and a contact number to our office were provided if concerns arise regarding possible complications associated with the procedure are suspected.
== END 2024-12-26 10:44 | disposition home or self-care (01) ==
LOC: RAD 08:40
PROVIDERS: Family Provider Internal Medicine; PCP Internal Medicine; Referring Provider Internal Medicine; Visit Provider Physical Medicine & Rehabilitation
DX: M48.02 Spinal stenosis, cervical region (principal); M50.123 Cervical disc disorder at C6-C7 level with radiculopathy
CPT/HCPCS: 62321; 99152; J1100; J2250

== ENCOUNTER → 2025-01-03 11:36 | Outpatient (CLI) | payer MEDICARE, SELFPAY ==
[2024-03-18 20:25] VITALS: BMI 29.2
--- NOTE | 2025-01-03 11:38 | DI.RAD.S_ITS ---
PROCEDURE: XR CHEST 2V INDICATIONS: hypoxia TECHNIQUE: 2 views of the chest were acquired. COMPARISON: [facility], , CHEST 2 VIEW, 05/29/2017, 12:04. FINDINGS: Mild to moderately enlarged cardiopericardial silhouette. Prominent glen, pulmonary vascular congestion and/or hilar lymph nodes. Elevated right hemidiaphragm. Moderate bilateral diffuse peribronchial thickening and patchy opacities, more than expected for artifact from expiratory result; bronchitis, viral infection, bronchopneumonia, asthma or other process should be considered. Follow-up suggested. Vascular calcifications of the aortic arch and degenerative changes of the thoracic spine and shoulders. No pneumothorax, no significant pleural effusion. IMPRESSION: Moderate diffuse peribronchial thickening and patchy opacities as discussed above. Follow-up suggested. Enlarged cardiopericardial silhouette and prominent glen. If symptoms persist or worsen, CT chest could be performed. Dictated by: Bunny Jett M.D. on 01/03/2025 at 15:28 Approved by: Bunny Jett M.D. on 01/03/2025 at 15:39
== END ==
PROVIDERS: Family Provider Internal Medicine; PCP Internal Medicine; Referring Provider Internal Medicine; Visit Provider Internal Medicine
DX: I48.20 Chronic atrial fibrillation, unspecified (principal); I10 Essential (primary) hypertension; R79.81 Abnormal blood-gas level
CPT/HCPCS: 71046

== ENCOUNTER → 2025-01-04 12:16 | Outpatient (CLI) | payer MEDICARE, SELFPAY ==
[2024-03-18 20:25] VITALS: BMI 29.2
[2025-01-04 13:28] LABS: Add Manual Diff / Slide Review NO; Hematocrit 43.4 % (36-46); Hemoglobin 14.9 g/dL (12.0-16.0); Lymphocytes Absolute Auto 900 /uL (1100-4500); Mean Corpuscular HGB Conc 34.3 % (30-36); Mean Corpuscular Hemoglobin 35.0 PG (26-34); Mean Corpuscular Volume 102.1 fL (80-100); Platelet Count 244 X10^3/uL (150-400)
[2025-01-04 13:51] LABS: Alanine Aminotransferase 13 IU/L (<35); Albumin 4.4 g/dL (3.5-5.0); Albumin Globulin Ratio 1.8 (1.0-2.8); Alkaline Phosphatase 83 U/L (38-126); Blood Urea Nitrogen 16 mg/dL (7-17); Calcium 9.4 mg/dL (8.4-10.2); Carbon Dioxide 31 mmol/L (22-32); Chloride 94 mmol/L (98-107); Estimated Glomerular Filt Rate > 60 mL/min (>60); Globulin 2.4 g/dL (1.7-4.1); Glucose 89 mg/dL (70-99); HEMOLYSIS < 15 (0-50); Potassium 3.8 mmol/L (3.4-5.1); Sodium 136 mmol/L (137-145); Total Protein 6.8 g/dL (6.3-8.2)
[2025-01-04 14:23] LABS: TSH w/ Reflex to FT4 1.71 uIU/mL (0.47-4.68)
== END ==
PROVIDERS: Family Provider Internal Medicine; PCP Internal Medicine; Referring Provider Internal Medicine; Visit Provider Internal Medicine
DX: I10 Essential (primary) hypertension (principal); E78.2 Mixed hyperlipidemia; E03.9 Hypothyroidism, unspecified
CPT/HCPCS: 36415; 80053; 84443; 85025

== ENCOUNTER → 2025-01-07 12:31 | Outpatient (CLI) | payer MEDICARE, SELFPAY ==
[2024-03-18 20:25] VITALS: BMI 29.2
--- NOTE | 2025-01-07 12:32 | DI.ECHO.S_ITS ---
[facility] : : [address] : : [place] : : [id number] : : Phone: [phone] Echocardiogram Report + + :Name: AMIRA CARVALHO Study Date: 01/07/2025 Height: 60 in : :[facility] ReadingLocation: Weight: 168 lb : : Gender: Female BSA: 1.7 m2 : :: 1940 Age: 84 yrs BP: 108/77 mmHg: :Reason For Study: HYPOXIA : :Ordering Physician: CRISTO, : :JOSE Christensen Performed By: Stephen Mclean : :Referring: JOSE LEMONS : + + Interpretation Summary - Left ventricular contractility is hyperdynamic. Estimated ejection fraction is greater than 70% with no segmental wall motion abnormalities. Mild concentric LVH. Unable to comment on diastolic function. - The right ventricular contractility is normal. - Moderate left atrial enlargement. The right atrium is of normal size. - Mild tricuspid regurgitation with estimated pulmonary systolic artery pressures of 63 mmHg. - No obvious intracardiac shunts. - No obvious intracardiac masses nor thrombi. - No hemodynamically significant pericardial effusion. - Low right-sided filling pressures. 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 - Mildly dilated ascending thoracic aorta without obvious dissection. Conclusion: Hyperdynamic left ventricular systolic function with normal right ventricular contractility. Mild tricuspid regurgitation with severe pulmonary hypertension and dilated pulmonary artery. When compared with previous echocardiogram, there appears to be an increase in the pulmonary systolic artery pressures with persistent pulmonary artery aneurysm. Procedure: A two-dimensional transthoracic echocardiogram with color flow and Doppler was performed. The study quality was technically good. Comparison is made with the echocardiogram of 06/07/2017. The patient was in atrial fibrillation with heart rates between 73-103 bpm during the exam. Left Ventricle: The left ventricle is normal in size. Left ventricular wall thickness is mildly increased. There is no ventricular septal defect visualized. The ejection fraction is estimated to be 70-75%. There are no focal wall motion abnormalities. Diastolic function could not be accurately assessed due to atrial fibrillation. Right Ventricle: The right ventricle is normal in size and function. Atria: The left atrium is moderately dilated. Right atrial size is normal. There is no Doppler evidence for an interatrial shunt. Mitral Valve: There is moderate mitral annular calcification. The mitral valve leaflets are mildly calcified. The mitral valve leaflets appear mildly thickened. There is no mitral regurgitation noted. Aortic Valve: The aortic valve is trileaflet. The aortic valve is mildly calcified. The aortic valve opens well. No aortic regurgitation is present. Tricuspid Valve: The tricuspid valve leaflets are thin and pliable. There is mild tricuspid regurgitation. The right ventricular systolic pressure is estimated to be at least 63 mmHg based on an estimated right atrial pressure of 3 mm Hg. Pulmonic Valve: The pulmonic valve is not well seen, but is grossly normal. There is trace pulmonic regurgitation. Great Vessels: The aortic root is normal size. The ascending aorta is mildly enlarged. Severe pulmonary artery dilation. The IVC is of normal diameter and collapses greater than 50% with a sniff. This suggests a low right atrial pressure of 3 mm Hg. Pericardium/ Pleura There is no pericardial effusion. There is no pleural effusion. MMode/2D Measurements & Calculations LVIDd: 4.4 cm LVOT diam: 2.0 cm LVIDs: 2.5 cm Ao root diam: 3.2 cm FS: 44.1 % asc Aorta Diam: 4.3 cm EPSS: 0.25 cm IVSd: 1.1 cm LVPWd: 1.1 cm LV jama. diameter/BSA (cm/m^2): 2.5 LV sys. diameter/BSA (cm/m^2): 1.4 LA A2 area: 21.7 cm2 RA long axis: 6.6 cm LA A4 area: 23.0 cm2 RA area: 16.1 cm2 LA length (vol): 5.8 cm RA vol: 33.4 ml LA vol: 72.9 ml RA : 19.3 ml/m2 LA vol index: 42.1 ml/m2 IVC diam: 1.7 cm RVD1 (basal): 3.7 cm RVD2 (mid): 2.3 cm TAPSE: 2.2 cm Doppler Measurements & Calculations Ao V2 max: 141.0 cm/sec LVOT Max Gerry: 110.5 cm/sec Ao V2 mean: 106.3 cm/sec LV V1 max P.9 mmHg Ao max P.0 mmHg LV V1 VTI: 18.7 cm Ao mean P.9 mmHg DANIELA(I,D): 2.3 cm2 Ao V2 VTI: 25.1 cm DANIELA(V,D): 2.4 cm2 sev ratio: 0.75 DANIELA indexed to BSA (cm^2/m^2): 1.3 MV E max gerry: 73.3 cm/sec TR max gerry: 386.4 cm/sec MV A max gerry: 18.3 cm/sec TR max P.7 mmHg MV E/A: 4.0 PA V2 max: 102.2 cm/sec Med Peak E' Gerry: 4.8 cm/sec PA V2 mean: 58.4 cm/sec E/E' med: 15.3 PA mean P.7 mmHg Lat Peak E' Gerry: 7.3 cm/sec PA pr(Accel): 68.7 mmHg E/E' lat: 10.1 E/e' average: 12.7 MV dec time: 0.24 sec SV(LVOT): 57.9 ml Reading Physician:DORON
== END ==
PROVIDERS: Family Provider Internal Medicine; PCP Internal Medicine; Referring Provider Internal Medicine; Visit Provider Internal Medicine
DX: I07.1 Rheumatic tricuspid insufficiency (principal); I28.8 Other diseases of pulmonary vessels; I48.20 Chronic atrial fibrillation, unspecified; R79.81 Abnormal blood-gas level; I10 Essential (primary) hypertension; I77.89 Other specified disorders of arteries and arterioles
CPT/HCPCS: 93306

== ENCOUNTER → 2025-01-25 13:39 | Outpatient (CLI) | payer MEDICARE, SELFPAY ==
[2024-03-18 20:25] VITALS: BMI 29.2
--- NOTE | 2025-01-25 13:40 | DI.CT.S_ITS ---
PROCEDURE: CT CHEST HIGH RESOLUTION INDICATIONS: Hypoxia/Abnormal Chest Xray TECHNIQUE: Noncontrast 1.0 and 5.0 mm thick contiguous axial sections from the pulmonary apex to the posterior costophrenic angles, with 7 mm thick coronal and sagittal MIP reformats. 1 mm thick dynamic expiratory images acquired through the upper, mid, and lower lungs. 1.0 mm thick axial sections acquired from the miley to the posterior costophrenic angles in the prone end-inspiration position. For radiation dose reduction, the following was used: automated exposure control, adjustment of mA and/or kV according to patient size. COMPARISON: [facility], , XR CHEST 2V, 01/03/2025, 11:38. FINDINGS: Image quality: Diagnostic Lungs and pleura: Diffuse mosaic attenuation best seen on expiration. No significant fibrotic changes. No dense airspace disease or pleural effusions. Diffuse pulmonary nodularity, mostly in a random or centrilobular distribution. No dominant nodule measuring 5 mm or larger. Mediastinum, heart, and esophagus: Cardiomegaly. Distended main pulmonary artery of 4.2 cm. Distended ascending aorta measuring 4.4 cm. Aortic annular and mitral valvular densities and calcifications. Prominent mediastinal lymph nodes, possibly reactive, indeterminate. Unremarkable CT appearance of the esophagus. Coronary calcifications. Chest wall and thyroid: Dystrophic right thyroid calcifications. Upper abdomen: No gross abnormality on these noncontrast images. Cholecystectomy clips are seen. Eventration of the right hemidiaphragm Bones: There are degenerative osseous changes. No aggressive appearing osseous abnormality. IMPRESSION: Diffuse parenchymal mosaic attenuation is most commonly seen with chronic small airways disease/bronchiolitis. No significant pulmonary fibrosis or airspace consolidation. No pleural effusions. Diffuse pulmonary nodularity mostly in a random or centrilobular distribution (best seen on series 6). These could be infectious/inflammatory. Other less common differential considerations include hematologic spread of infection or malignancy. Consider continue follow-up depending on clinical context. Distended main pulmonary artery indicating chronically high pulmonary pressures. Distended ascending aorta of 4.4 cm. Cardiomegaly. Aortic annular and mitral valvular densities and calcifications. Coronary calcifications. Other findings above. Dictated by: Garrett Mccauley M.D. on 01/25/2025 at 14:39 Approved by: Garrett Mccauley M.D. on 01/25/2025 at 14:44
== END ==
LOC: CT 13:39
PROVIDERS: Family Provider Internal Medicine; PCP Internal Medicine; Referring Provider Internal Medicine; Visit Provider Internal Medicine
DX: R09.02 Hypoxemia (principal); R93.89 Abnormal findings on diagnostic imaging of other specified body structures; R91.8 Other nonspecific abnormal finding of lung field; J90 Pleural effusion, not elsewhere classified; I51.7 Cardiomegaly; I34.81 Nonrheumatic mitral (valve) annulus calcification; I70.0 Atherosclerosis of aorta; I25.10 Atherosclerotic heart disease of native coronary artery without angina pectoris
CPT/HCPCS: 71250

== ENCOUNTER → 2025-02-11 15:09 | Outpatient (CLI) | payer MEDICARE, SELFPAY ==
[2025-02-11 09:14] VITALS: BMI 29.2
--- NOTE | 2025-02-11 15:11 | DI.RAD.S_ITS ---
PROCEDURE: XR HUMERUS LT 2V INDICATIONS: pain and big bruise to distal medial arm TECHNIQUE: 2 views of the humerus were acquired. COMPARISON: None. FINDINGS: Bones: No fractures or dislocations. No suspicious bony lesions. Severe glenohumeral and acromioclavicular degenerative change. Moderate degenerative change at the elbow. Soft tissues: No suspicious soft tissue calcifications. IMPRESSION: No acute bony abnormality. Dictated by: Elroy Goff M.D. on 02/11/2025 at 16:32 Approved by: Elroy Goff M.D. on 02/11/2025 at 16:33
== END ==
PROVIDERS: Family Provider Internal Medicine; PCP Internal Medicine; Referring Provider Physician Assistant; Visit Provider Physician Assistant
DX: M79.602 Pain in left arm (principal)
CPT/HCPCS: 73060

== ENCOUNTER 2025-02-18 00:20 | Emergency (ER) | payer MEDICARE, SELFPAY ==
[2025-02-11 09:14] VITALS: BMI 29.2
--- NOTE | 2025-02-18 00:21 | DI.RAD.S_ITS ---
PROCEDURE: XR CHEST 1V INDICATIONS: increased pain/bruise, L arm/chest, denies trauma TECHNIQUE: One view of the chest was acquired. COMPARISON: [facility], CR, XR CHEST 2V, 01/03/2025, 11:38. FINDINGS: Surgical changes and devices: None. Lungs and pleura: Diffuse interstitial prominence. Mild perihilar airway thickening. No new dense consolidation seen. Eventration of the right hemidiaphragm, stable. Mild central vascular prominent. Mediastinum: The cardiomediastinal contours remain stable with enlargement of the cardiac silhouette. Bones and chest wall: No suspicious bony lesions. Overlying soft tissues appear unremarkable. Severe degenerative changes of the bilateral shoulders. IMPRESSION: Cardiomegaly with persistent diffuse interstitial prominence and mild perihilar airway thickening. Mild prominence of the central vasculature. Findings are nonspecific but may represent pulmonary edema/CHF. No focal consolidation seen. Dictated by: Homar Vasquez M.D. on 02/18/2025 at 1:52 Approved by: Homar Vasquez M.D. on 02/18/2025 at 1:54
--- NOTE | 2025-02-18 00:21 | DI.RAD.S_ITS ---
PROCEDURE: XR ELBOW LT 2V INDICATIONS: increased pain, bruising left arm TECHNIQUE: 2 views of the elbow were acquired. COMPARISON: None. FINDINGS: Bones: No fractures or dislocations. No suspicious bony lesions. Moderate- severe degenerative changes of the left elbow. Prominent marginal osteophytes. Soft tissues: No elbow joint effusion. No suspicious soft tissue calcifications. IMPRESSION: Left elbow without acute fracture or dislocation. 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 If there are persistent symptoms or clinical suspicion for pathology, then repeat radiographs or advanced imaging (CT or MRI) may be considered for further evaluation. Dictated by: Homar Vasquez M.D. on 02/18/2025 at 1:50 Approved by: Homar Vasquez M.D. on 02/18/2025 at 1:51
--- NOTE | 2025-02-18 00:21 | DI.RAD.S_ITS ---
PROCEDURE: XR SHOULDER LT MIN 2V INDICATIONS: increased pain, bruising left arm TECHNIQUE: 3 views of the shoulder were acquired. COMPARISON: None. FINDINGS: Bones: No fractures or dislocations. No suspicious bony lesions. Visualized ribs appear intact. There are moderate-severe degenerative changes involving the acromioclavicular and glenohumeral joints. Coracoclavicular and acromioclavicular intervals are maintained. Soft tissues: No suspicious soft tissue calcifications. IMPRESSION: Moderate-severe degenerative changes of the acromioclavicular and glenohumeral joints. No acute fracture or dislocation. If there are persistent symptoms or clinical suspicion for pathology, then repeat radiographs or advanced imaging (CT or MRI) may be considered for further evaluation. Dictated by: Homar Vasquez M.D. on 02/18/2025 at 1:46 Approved by: Homar Vasquez M.D. on 02/18/2025 at 1:48
--- NOTE | 2025-02-18 00:24 | ED.GENADULT ---
HPI - General Adult General Chief complaint: Extremity Injury, Upper Stated complaint: l arm pain Time Seen by Provider: 02/18/25 00:21 Source: patient, EMS, RN notes reviewed and old records reviewed Mode of arrival: EMS Limitations: no limitations History of Present Illness HPI narrative: 84-year-old female history of atrial fibrillation on Eliquis, hypertension, dyslipidemia, interstitial lung disease presents with complaint of left arm pain from the humerus down towards the elbow and into the clavicle region. She states it has been going on for about a week since she had physical therapy but rapidly worsened tonight. She states they might have moved her arm too aggressively and PT what she had denies any other trauma or injuries. She does have some bruising on the inside of her arm. Patient denies any numbness or tingling. Denies weakness but states too painful to internal medicine doctor. She states any sort of movement of the shoulder elbow is painful. She denies any new shortness of breath but has chronic shortness of breath denies any fevers or chills. She states she might have has a little bit of nausea tonight but did receive fentanyl EN route. Denies GI or urinary symptoms. Patient has a allergies to sulfa gabapentin. She took some [place] earlier this evening. Dr. Valerio is her primary care physician. Related Data Home Medications ?Medication ?Instructions ?Recorded ?Confirmed apixaban 5 mg tablet 5 mg PO BID #60 tabs 07/16/18 02/11/25 Prevagen 1 tab PO DAILY Memory 08/27/21 02/11/25 docusate sodium 100 mg capsule 100 mg PO DAILY 07/04/22 02/11/25 betamethasone dipropionate 0.05 % 1 applic topical DAILY PRN 08/07/23 02/11/25 topical ointment atenolol 25 mg tablet 25 mg PO BID 11/16/23 02/11/25 cholecalciferol (vitamin D3) 25 25 mcg PO DAILY 02/14/25 02/14/25 mcg (1,000 unit) tablet (Vitamin D3) fluticasone propionate 50 1 spray intranasal DAILY 02/14/25 02/14/25 mcg/actuation nasal spray,suspension (Flonase Allergy Relief) lovastatin 40 mg tablet 40 mg PO DAILY 02/14/25 02/14/25 oxybutynin chloride 10 mg 10 mg PO DAILY 02/14/25 02/14/25 tablet,extended release 24 hr Previous Rx's ?Medication ?Instructions ?Recorded Disabled Parking Permit #1 ea 04/23/21 clindamycin phosphate 1 % lotion 1 applic topical BID PRN Rosacea 03/06/23 #60 mL hydrochlorothiazide 25 mg tablet 25 mg PO Q DAY #90 tabs 07/18/24 duloxetine 30 mg capsule,delayed 30 mg PO DAILY #90 caps 09/26/24 release solifenacin 5 mg tablet 5 mg PO DAILY #90 tabs 12/11/24 bupropion HCl 150 mg 24 hr tablet, 150 mg PO QAM #90 tabs 12/23/24 extended release alprazolam 0.5 mg tablet (Xanax) 0.5 mg PO .COMPLEX PRN Pre MRI or 12/26/24 Procedure #5 tabs hydrocodone 7.5 mg-acetaminophen 1 - 2 tab PO Q4-6H PRN pain #250 01/09/25 325 mg tablet tabs Oxygen #1 ea 01/31/25 prednisone 10 mg tablets in a dose See Rx Instructions PO .COMPLEX 02/18/25 pack #21 ea Allergies Allergy/AdvReac Type Severity Reaction Status Date / Time Sulfa (Sulfonamide Allergy Unknown Verified 02/11/25 14:41 Antibiotics) gabapentin AdvReac Dry Mucus Verified 02/11/25 14:41 Membranes Review of Systems Review of Systems ROS Unobtainable: All systems reviewed & are unremarkable except as noted in HPI and below Patient History Medical History Asthma Pulmonary hypertension ILD (interstitial lung disease) Low oxygen saturation Stress incontinence, female Urge incontinence Spinal stenosis of cervical region with radiculopathy Uncomplicated opioid dependence Urinary incontinence 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 Lumbosacral spondylosis with radiculopathy Spinal stenosis of lumbar region at multiple levels Chronic atrial fibrillation Obesity (05/10/05) Chronic obstructive pulmonary disease (05/29/17) Dorsalgia (01/20/17) Depression (06/13/14) Acquired hypothyroidism (11/08/12) Gastroesophageal reflux disease without esophagitis Osteoarthritis (11/25/10) Essential hypertension Mixed hyperlipidemia (05/10/05) Surgical History Hx of hysterectomy Hx of total hip arthroplasty S/P lumbar spinal fusion Social History marital status: number of children: 6 household members: family lives independently: Yes caregiver/support person: No housing: house pets and animals: Yes education level: college occupational status: other 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 RESPIRATORY: Breath sounds equal bilaterally, no wheezes rales or rhonchi. ABDOMEN: Soft, nontender. Normoactive bowel sounds all 4 quadrants. No guarding or rebound, rigidity, no mass : No CVA tenderness EXTREMITIES: Decreased range of motion of the left elbow and left shoulder. Patient has not noted bony tenderness over the clavicle, does have tenderness when I squeeze of the elbow. Moderate tenderness over the humerus. Patient does not have any bony tenderness of the radius or ulna, nontender over the wrist, no tenderness of the fingers. Patient does not have any obvious edema comparison in the left to right but does have ecchymosis of the distal arm/humeral region, no clubbing or edema. Neurovascularly intact. 2+ radial pulses bilaterally. Full range of motion of all 5 fingers bilaterally. NEUROLOGICAL: Cranial nerves II through XII grossly intact. Moving all extremities SKIN: Warm, dry, no petechiae, no rashes or lesions otherwise noted. Initial Vital Signs Initial Vital Signs: Vital Signs Pulse Rate 95 H 02/18/25 00:32 Pulse Oximetry 95 02/18/25 00:32 Oxygen Delivery Method Room Air 02/18/25 00:32 Course Orders Ordered: ED Orders 02/18/25 00:10 Complete Blood Count AUTO DIFF Stat Comprehensive Metabolic Panel Stat NT-proBNP (BNP-Adult 18+) Stat PTT Partial Thromboplastin Abhay Stat Prothrombin Time INR Stat Troponin I Stat 02/18/25 00:21 Chest [XR chest 1V] Stat XR elbow LT 2V Stat XR shoulder LT 2+ views Stat 02/18/25 00:22 EKG-12 Lead Stat 02/18/25 02:28 Trop I [Troponin I] Stat Discontinued Medications Dexamethasone (Dexamethasone 10 Mg/Ml Vial) 10 mg IV NOW ONE Stop: 02/18/25 03:28 Last Admin: 02/18/25 03:40 Dose: 10 mg Documented By: ROXANNE Ketorolac Tromethamine (Ketorolac 30 Mg/Ml Vial) 15 mg IV NOW ONE Stop: 02/18/25 01:57 Last Admin: 02/18/25 02:19 Dose: 15 mg Documented By: ROXANNE Morphine Sulfate (Morphine 4 Mg/Ml Inj) 4 mg IV NOW ONE Stop: 02/18/25 00:24 Last Admin: 02/18/25 01:18 Dose: 4 mg Documented By: ROXANNE Ondansetron HCl (Ondansetron 4 Mg/2 Ml Inj) 4 mg IV NOW ONE Stop: 02/18/25 00:24 Last Admin: 02/18/25 01:18 Dose: 4 mg Documented By: ROXANNE Oxycodone/Acetaminophen (Oxycodone/Acetaminophen 5/325 Tablet) 2 tab PO NOW ONE Stop: 02/18/25 03:28 Last Admin: 02/18/25 03:39 Dose: 2 tab Documented By: ROXANNE Vital Signs Vital signs: Vital Signs - 8 hr 02/18/25 00:32 02/18/25 00:34 02/18/25 02:00 Temperature 97.5 F L Pulse Rate 95 H 100 H Respiratory Rate 25 H Blood Pressure 197/106 H 190/110 H Pulse Oximetry 95 92 Oxygen Delivery Method Room Air Room Air 02/18/25 02:00 02/18/25 04:05 02/18/25 04:09 Temperature Pulse Rate 93 H 90 92 H Respiratory Rate Blood Pressure Pulse Oximetry 92 91 92 Oxygen Delivery Method Room Air Room Air Room Air 02/18/25 04:09 02/18/25 04:27 Temperature 98.1 F Pulse Rate 99 H Respiratory Rate 20 Blood Pressure 178/102 H Pulse Oximetry 92 Oxygen Delivery Method Room Air Medical Decision Making Lab Data 02/18/25 00:10 02/18/25 00:10 Labs: Lab Results 02/18/25 02/18/25 Range/Units 00:10 02:28 WBC 6.4 (4.5-11.0) X10^3/uL RBC 4.04 (4.0-5.2) X10^6/uL Hgb 13.9 (12.0-16.0) g/dL Hct 40.7 (36-46) % MCV 100.7 H (80-100) fL MCH 34.3 H (26-34) PG MCHC 34.1 (30-36) % RDW 14.0 (11.6-14.8) % Plt Count 217 (150-400) X10^3/uL Neut % (Auto) 65.7 (50-75) % Lymph % (Auto) 14.7 L (25-40) % Ashley % (Auto) 15.9 H (3-14) % Eos % (Auto) 3.2 (2-4) % Baso % (Auto) 0.5 (0-2) % Neut # (Auto) 4200 (3810-8062) /uL Lymph # (Auto) 900 L (0150-5802) /uL Ashley # (Auto) 1000 H (0-900) /uL Eos # (Auto) 200 (0-450) /uL Baso # (Auto) 0 (0-100) /uL PT 19.7 H (9.4-12.5) SECONDS INR 1.8 H (0.9-1.3) APTT 35 (25.1-36.5) SECONDS Sodium 134 L (137-145) mmol/L Potassium 4.2 (3.4-5.1) mmol/L Chloride 93 L (98-107) mmol/L Carbon Dioxide 29 (22-32) mmol/L BUN 16 (7-17) mg/dL Creatinine 0.82 (0.52-1.04) mg/dL Estimated GFR > 60 (>60) mL/min BUN/Creatinine Ratio 19.5 (6-22) Glucose 115 H (70-99) mg/dL Calcium 9.1 (8.4-10.2) mg/dL Total Bilirubin 1.3 (0.2-1.3) mg/dL AST 30 (14-36) IU/L ALT 13 (<35) IU/L Alkaline Phosphatase 99 (38-126) U/L Troponin I 0.017 0.020 (0.01-0.034) ng/mL NT-Pro-B Natriuret Pep 4180 H (<450) pg/mL Total Protein 7.4 (6.3-8.2) g/dL Albumin 4.6 (3.5-5.0) g/dL Globulin 2.8 (1.7-4.1) g/dL Albumin/Globulin Ratio 1.6 (1.0-2.8) MDM Narrative Medical decision making narrative: Labs show normal white count, hemoglobin and platelets, INR is 1.8. Chemistries 134 chloride 93 electrolytes are otherwise appropriate BUN and creatinine are appropriate glucose is 115 troponins less than 0.017 with a BNP of 4180. Repeat troponin of 0.020 EKG shows AFib rate of 100 QRS of 98 QTC of 472 voltage criteria for LVH. No prior for comparison. CXR cardiomegaly with a persistent diffuse interstitial prominence and mild perihilar airway thickening mild prominent central vasculature findings are nonspecific may represent pulmonary edema/CHF no focal consolidation. Left shoulder xray moderate severe degenerative changes of the acromioclavicular and glenohumeral joints no fracture or dislocation. Left elbow xray without acute fracture or dislocation moderate to severe degenerative changes of the left elbow. Patient received pain medication and antiemetics. 84-year-old female with a left lower extremity pain patient notes pain from her left upper chest radiating down her arm. She describes it as an electric shock that she is getting occasional things but has now become more persistent. She denies a loss of sensation. She notes that she is chronically on Eliquis thinks DVT is low on her differential does have degenerative changes at both the shoulder and elbow, no obvious fractures appreciated patient has a bruising but states this has been there for little bit of time from a prior fall. Patient's arm is warm, she has 2+ radial pulses she notes a little bit of bluish tinge to the edge of her fingers but this is bilateral and she notes that is been present for about 6 months. She notes this is evening symptoms are very similar to when she was getting nerve pain in her right hip but that has now constant. She has improved range of motion on exam. On rechecked patient is feeling much improved. She would like to go home. Discharge Plan Departure Patient Disposition: Home Clinical Impression: Arm pain, left Instructions: DI for Arm Pain Activity Restrictions/Additional Instructions: Follow up with your physician for recheck, call this morning to set up an appointment. A prescription for an oral steroid was sent to [facility]. You can continue with your home pain medication. Please return if you have new or rapidly worsening symptoms, new numbness tingling or weakness inability to lift or move your arm, loss of sensation, new color changes or other new or concerning changes. Prescriptions: New prednisone 10 mg tablets,dose pack See Rx Instructions .ROUTE .COMPLEX Qty: 21 0RF Rx Instructions: 6 tabs p.o. x1 day, then 5 tabs p.o. x1 day, then 4 tablets p.o. x1 day, then 3 tabs p.o. x1 day, then 2 tabs p.o. x1 day, then 1 tab p.o. x1 day No Action clindamycin phosphate 1 % lotion 1 applic topical BID PRN (Reason: Rosacea) Qty: 60 3RF duloxetine 30 mg capsule,delayed release(DR/EC) 30 mg PO DAILY Qty: 90 3RF solifenacin 5 mg tablet 5 mg PO DAILY Qty: 90 2RF bupropion HCl 150 mg tablet extended release 24 hr 150 mg PO QAM Qty: 90 3RF alprazolam [Xanax] 0.5 mg tablet 0.5 mg PO .COMPLEX MDD 2 PRN (Reason: Pre MRI or Procedure) Qty: 5 0RF Rx Instructions: 0.5 mg orally 1-2 prior to procedure or MRI PRN; Eliquis 5 mg tablet 5 mg PO BID Qty: 60 Prevagen 1 tab PO DAILY atenolol 25 mg tablet 25 mg PO BID (DME) Disabled Parking Permit See Rx Instructions .ROUTE .MEDSUPPLY Qty: 1 0RF Rx Instructions: Patient qualifies for disabled parking as per the attached form. betamethasone dipropionate 0.05 % ointment 1 applic topical DAILY PRN hydrochlorothiazide 25 mg tablet 25 mg PO Q DAY Qty: 90 3RF hydrocodone-acetaminophen 7.5-325 mg tablet 1 - 2 tab PO Q4-6H MDD 9 tabs PRN (Reason: pain) Qty: 250 0RF cholecalciferol (vitamin D3) [Vitamin D3] 25 mcg (1,000 unit) tablet 25 mcg PO DAILY fluticasone propionate [Flonase Allergy Relief] 50 mcg/actuation spray,suspension 1 spray intranasal DAILY Rx Instructions: administer into each nostril lovastatin 40 mg tablet 40 mg PO DAILY oxybutynin chloride 10 mg tablet extended release 24hr 10 mg PO DAILY docusate sodium 100 mg capsule 100 mg PO DAILY (DME) Oxygen See Rx Instructions .Route .MEDSUPPLY Qty: 1 0RF Rx Instructions: 2 liters/minute at rest, 4 liters/minute with exertion, 2 liters/minute with sleep Please provide battery powered portable oxygen concentrator 2-4 L/minute Referrals: Phillip Valerio MD [Primary Care Provider, Internal Medicine] Stand Alone Forms: Patient Portal/API
[2025-02-18 00:32] VITALS: PULSE 95; O2SAT 95
[2025-02-18 00:34] VITALS: BP 197/106; PULSE 100; RESP 25; TEMP 36.4; O2SAT 92; BMI 33.2
[2025-02-18 01:10] LABS: Add Manual Diff / Slide Review NO; Hematocrit 40.7 % (36-46); Hemoglobin 13.9 g/dL (12.0-16.0); Lymphocytes Absolute Auto 900 /uL (1100-4500); Mean Corpuscular HGB Conc 34.1 % (30-36); Mean Corpuscular Hemoglobin 34.3 PG (26-34); Mean Corpuscular Volume 100.7 fL (80-100); Platelet Count 217 X10^3/uL (150-400)
[2025-02-18 01:16] LABS: INR 1.8 (0.9-1.3); Prothrombin Time 19.7 SECONDS (9.4-12.5)
[2025-02-18] MEDS: ONDANSETRON 4 MG/2 ML INJ IV (01:18)
[2025-02-18] MEDS: MORPHINE 4 MG/ML INJ IV (01:18)
[2025-02-18 01:19] LABS: PTT Partial Thromboplastin Tim 35 SECONDS (25.1-36.5)
[2025-02-18 01:22] LABS: Alanine Aminotransferase 13 IU/L (<35); Albumin 4.6 g/dL (3.5-5.0); Albumin Globulin Ratio 1.6 (1.0-2.8); Alkaline Phosphatase 99 U/L (38-126); Blood Urea Nitrogen 16 mg/dL (7-17); Calcium 9.1 mg/dL (8.4-10.2); Carbon Dioxide 29 mmol/L (22-32); Chloride 93 mmol/L (98-107); Estimated Glomerular Filt Rate > 60 mL/min (>60); Globulin 2.8 g/dL (1.7-4.1); Glucose 115 mg/dL (70-99); HEMOLYSIS < 15 (0-50); Potassium 4.2 mmol/L (3.4-5.1); Sodium 134 mmol/L (137-145); Total Protein 7.4 g/dL (6.3-8.2)
[2025-02-18 01:36] LABS: NT-proBNP (BNP-Adult 18+) 4180 pg/mL (<450); Troponin I 0.017 ng/mL (0.01-0.034)
[2025-02-18 02:00] VITALS: BP 190/110; PULSE 93; O2SAT 92
[2025-02-18] MEDS: KETOROLAC 30 MG/ML VIAL 15 MG IV (02:19)
[2025-02-18 02:56] LABS: Troponin I 0.020 ng/mL (0.01-0.034)
--- NOTE | 2025-02-18 03:07 | EKG_ITS ---
[place] [id number] [place] [id number] Test Date: 2025-02-18 Pat Name: Ana Paredes Department: [facility] Room: Gender: Female Group Insurance Specialist: AMADO ARELLANO : 1940 Requested By: Order Number: [id number] Reading MD: Phillip Valerio MD Measurements Intervals Gordon Rate: 100 P: ND: QRS: 48 QRSD: 98 T: 92 QT: 366 QTc: 472 Interpretive Statements Atrial fibrillation Minimal voltage criteria for LVH, may be normal variant ( Ancelmo product ) NO PRIOR TRACING Electronically Signed On 02-18-2025 7:47:14 PST by Phillip Valerio MD
[2025-02-18 04:05] VITALS: PULSE 90; O2SAT 91
[2025-02-18 04:09] VITALS: BP 178/102; PULSE 92; O2SAT 92
[2025-02-18 04:27] VITALS: PULSE 99; RESP 20; TEMP 36.7; O2SAT 92
== END 2025-02-18 04:30 | disposition home or self-care (01) ==
PROVIDERS: Emergency Provider Emergency Medicine; Family Provider Internal Medicine; PCP Internal Medicine
DX: M79.602 Pain in left arm (principal); Z79.01 Long term (current) use of anticoagulants
CPT/HCPCS: 36415; 71045; 73030; 73070; 80053; 83880; 84484; 85025; 85610; 85730; 93005; 96374; 96375; 99284; J1100; J1885; J2272; J2405